=== PATIENT | female | born 1945 | race African-American/Black ===

== ENCOUNTER 2016-04-23 19:22 | Inpatient (IN) ==
[2016-04-23] MEDS ORDERED: 0.9 % Sodium Chloride 1,000 ML IVC ONE (19:30)
--- NOTE | 2016-04-23 19:36 | Emergency Department Note ---
Addendum entered and electronically signed by Chaim Valentin DO 04/23/16 22 :49: Repeat EKG performed for motion artifact and initial EKG. This shows sinus rhythm with arrhythmia at 60. Left axis deviation. No ST elevation or depression. Original Note: Disposition Clinical Impression: Pneumonia Qualifiers: Pneumonia type: due to unspecified organism Laterality: right Lung location: upper lobe of lung Qualified Code(s): J18.1 - Lobar pneumonia, unspecified organism Respiratory failure Qualifiers: Chronicity: acute on chronic Respiratory failure complication: unspecified whether with hypoxia or hypercapnia Qualified Code(s): J96.20 - Acute and chronic respiratory failure, unspecified whether with hypoxia or hypercapnia Disposition: Admitted As Inpatient Condition: Serious Time of Disposition: 21:15 SOB HPI - General Chief Complaint: ED Shortness of Breath/Dyspnea Stated Complaint: hypoxia Time Seen by Provider: 04/23/16 19:30 Source: EMS Mode of arrival: EMS Limitations: altered mental status Nursing Notes Reviewed: Yes Vital Signs Reviewed: Yes - History of Present Illness Hx is extremely limited due to patient's altered mental status and her unexpected presentation by EMS. 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 She became increasingly difficult to bag throughout the trip. She desaturated into the 80s. Per the EMS crew the patient was slumped over and unresponsive when they picked her up which was reportedly her baseline. She has not awakened for them at all. They attempted to suction, but was unable to do so. No further history available. - Related Data Home Medications Medication Instructions Recorded Confirmed Brimonidine Tartrate [Alphagan P] 1 drop RIGHT EYE TID 04/23/16 04/23/16 Buspirone HCl [Buspar] 7.5 mg PO BID 04/23/16 04/23/16 Chlorhexidine Gluconate [Peridex] 15 ml MM BID 04/23/16 04/23/16 Cholecalciferol (D-3) [Vitamin D] 1,000 unit PO DAILY 04/23/16 04/23/16 Docusate [Colace] 100 mg PO DAILY 04/23/16 04/23/16 Donepezil [Aricept] 10 mg PO HS 04/23/16 04/23/16 Enoxaparin [Lovenox] 40 mg SQ DAILY 04/23/16 04/23/16 Famotidine [Heartburn Prevention] 20 mg PO BID 04/23/16 04/23/16 Furosemide [Lasix] 20 mg PO DAILY 04/23/16 04/23/16 Insulin LISPRO [HumaLOG] 2 - 6 units SQ Q6H 04/23/16 04/23/16 LORazepam [Ativan] 1 mg PO Q6H 04/23/16 04/23/16 Lactulose 20 gm PO Q6H PRN 04/23/16 04/23/16 Latanoprost [Xalatan] 1 drop BOTH EYES HS 04/23/16 04/23/16 Levothyroxine [Synthroid] 25 mcg PO 0630 04/23/16 04/23/16 Memantine HCl 10 mg PO BID 04/23/16 04/23/16 Metformin [Glucophage] 500 mg PO QPM 04/23/16 04/23/16 Multivitamin-Min/Iron/FA/Vit K 1 each PO DAILY 04/23/16 04/23/16 [Multi-Day Plus Minerals Tablet] Ondansetron [Zofran] 4 mg IVP Q6H PRN 04/23/16 04/23/16 OxyCODONE Immed Rel [Roxicodone 5 5 mg PO Q8HR PRN 04/23/16 04/23/16 MG] Quetiapine Fumarate [Seroquel] 75 mg PO BID 04/23/16 04/23/16 Sennosides [Senna] 8.6 mg PO DAILY 04/23/16 04/23/16 Allergies Allergy/AdvReac Type Severity Reaction Status Date / Time No Known Allergies Allergy Verified 04/23/16 21:37 Limitations: ROS unobtainable due to patients medical condition (Due to altered mental status) Past Medical History - Past Medical History Source: unable to obtain Physical Exam - Head Head exam: atraumatic, normocephalic, normal inspection - Eye Eye exam: Present: normal appearance, PERRL, EOMI - ENT ENT exam: dry Mucous membranes. - Neck Trach in place. Initially, I was unable to bag through the trach. I removed the inner cannula which was full of solid mucus. I used saline flushes to clean this out and replace it. After this, the patient was easy to bag. - Chest Chest inspection: Present: normal inspection, symmetric chest wall rise - Respiratory Clear bilaterally with diffuse rhonchi. Cardiovascular Cardiovascular exam: Present: regular rate, normal rhythm, normal heart sounds - Abdominal Exam Abdominal exam: Present: soft, Non-Tender. Absent: tenderness, distention, guarding, rebound, rigidity - Extremities Exam Extremities exam: Present: normal inspection, positive distal pulses in all extremities. - Back Exam Back exam: Present: normal inspection, full ROM. Absent: tenderness, CVA tenderness (R), CVA tenderness (L) - Neurological Exam Eyes open. Pupils equal and reactive, patient unresponsive however. - - Skin Skin exam: Present: warm, dry, intact, normal color Course - Reevaluation(s) Reevaluation #1: Patient with right upper lobe infiltrate concerning for ventilator associated pneumonia. Discussed case with Dr. Rodriguez . He is okay with the vancomycin, Levaquin, and Zosyn that was previously ordered for now. He will broaden out antibiotics as needed. He accepts the patient to 2 N. Time: 21:19 Vital Signs Temperature 97.6 F 04/23/16 19:24 Pulse Rate 82 04/23/16 19:24 Respiratory Rate 20 04/23/16 19:24 Blood Pressure 100/65 04/23/16 19:24 O2 Sat by Pulse Oximetry 98 04/23/16 19:24 Temperature 97.4 F L 04/24/16 07:00 Pulse Rate 52 04/24/16 07:00 Respiratory Rate 16 04/24/16 07:00 Blood Pressure 95/58 04/24/16 07:00 O2 Sat by Pulse Oximetry 100 04/24/16 07:00 Oxygen Delivery Oxygen Delivery Ventilator Shortness of Breath/Dyspnea - Lab Data Lab results reviewed: Yes I reviewed the patient's lab results. Result diagrams: 04/24/16 05:20 04/24/16 05:20 Lab Results 04/23/16 04/23/16 04/23/16 Range/Units 19:27 19:56 19:56 WBC 9.0 (4.3-11.1) K/mcL RBC 3.13 L (3.82-4.97) M/mcL Hgb 9.7 L (11.5-15.4) g/dL Hct 33.0 L (35.3-44.9) % MCV 105.4 H (83.0-100.0) fL MCH 31.0 (28.0-33.3) pg MCHC 29.4 L (31.6-35.5) g/dL RDW 14.7 H (11.5-14.5) % Plt Count 304 (140-400) K/mcL MPV 10.3 (9.4-12.4) fL Immature Gran % 0.4 (0-4) % Seg Neutrophils % 77.2 % Lymphocytes % 13.5 % Monocytes % 7.0 % Eosinophils % 1.6 % Basophils % 0.3 % Neutrophils # 7.0 (1.6-8.9) K/mcL Lymphocytes # 1.2 (0.6-4.6) K/mcL Monocytes # 0.6 (0.0-1.3) K/mcL Eosinophils # 0.1 (0.0-0.6) K/mcL Basophils # 0.0 (0.0-0.2) K/mcL PT 11.8 (9.4-12.1) Seconds INR 1.1 APTT 36.1 H (26.0-36.0) Seconds ABG pH (7.32-7.45) pH Units ABG pCO2 (35-45) mmHg ABG pO2 (85-104) mmHg ABG HCO3 (21-27) mEQ/L ABG Total CO2 (20-26) mEq/L ABG O2 Saturation (95-98) % ABG Base Excess (-2.0 to 3.0) mEq/L VBG pH (7.32-7.42) pH Units VBG pCO2 (41-51) mmHg VBG pO2 (25-40) mmHg VBG HCO3 (21-27) mEq/L Respiration Rate Blood Gas Modality Inspired O2 % Tidal Volume cc PEEP cm H2O Sodium (136-145) mEq/L Potassium (3.5-4.5) mEq/L Chloride (98-109) mEq/L Carbon Dioxide (19-29) mEq/L BUN (7-20) mg/dL Creatinine (0.57-1.11) mg/dL Est GFR ( Amer) (> 60) Est GFR (Non-Af Amer) (> 60) BUN/Creatinine Ratio (6-26) Glucose (70-99) mg/dL POC Glucose 233 H (58-89) Calculated Osmolality (280-300) Lactic Acid (0.5-2.2) mmol/L Calcium (8.6-10.8) mg/dL Phosphorus (2.3-4.7) mg/dL Magnesium (1.6-2.6) mg/dL Total Bilirubin (0.2-1.2) mg/dL Direct Bilirubin (0.0-0.5) mg/dL Indirect Bilirubin (0.0-1.2) mg/dL AST (5-34) Units/L ALT (0-55) Units/L Alkaline Phosphatase (38-126) Units/L Troponin I (0-0.03) ng/mL Serum Total Protein (6.0-8.3) g/dL Albumin (3.5-5.0) g/dL Globulin (2.4-3.5) g/dL Albumin/Globulin Ratio (1.1-2.2) Urine Color (Yellow) Urine Clarity (Clear) Urine pH (5.0-8.0) pH Units Ur Specific [place] (1.010-1.025) Urine Protein (Neg-Trace) mg/dL Urine Glucose (UA) (Normal) mg/dL Urine Ketones (Negative) mg/dL Urine Blood (Negative) Urine Nitrite (Negative) Urine Bilirubin (Negative) Urine Urobilinogen (Normal) mg/dL Ur Leukocyte Esterase (Negative) Urine Microscopic RBC (0-3) per hpf Urine Microscopic WBC (0-3) per hpf Ur Squamous Epith Cells (None-Few) per lpf Urine Bacteria (None-Few) per hpf Hyaline Casts (None-Few) per lpf Ur Culture Indicated? (NO) 04/23/16 04/23/16 04/23/16 Range/Units 19:56 19:56 19:56 WBC (4.3-11.1) K/mcL RBC (3.82-4.97) M/mcL Hgb (11.5-15.4) g/dL Hct (35.3-44.9) % MCV (83.0-100.0) fL MCH (28.0-33.3) pg MCHC (31.6-35.5) g/dL RDW (11.5-14.5) % Plt Count (140-400) K/mcL MPV (9.4-12.4) fL Immature Gran % (0-4) % Seg Neutrophils % % Lymphocytes % % Monocytes % % Eosinophils % % Basophils % % Neutrophils # (1.6-8.9) K/mcL Lymphocytes # (0.6-4.6) K/mcL Monocytes # (0.0-1.3) K/mcL Eosinophils # (0.0-0.6) K/mcL Basophils # (0.0-0.2) K/mcL PT (9.4-12.1) Seconds INR APTT (26.0-36.0) Seconds ABG pH (7.32-7.45) pH Units ABG pCO2 (35-45) mmHg ABG pO2 (85-104) mmHg ABG HCO3 (21-27) mEQ/L ABG Total CO2 (20-26) mEq/L ABG O2 Saturation (95-98) % ABG Base Excess (-2.0 to 3.0) mEq/L VBG pH (7.32-7.42) pH Units VBG pCO2 (41-51) mmHg VBG pO2 (25-40) mmHg VBG HCO3 (21-27) mEq/L Respiration Rate Blood Gas Modality Inspired O2 % Tidal Volume cc PEEP cm H2O Sodium 141 (136-145) mEq/L Potassium 5.0 H (3.5-4.5) mEq/L Chloride 97 L (98-109) mEq/L Carbon Dioxide 36 H (19-29) mEq/L BUN 38 H (7-20) mg/dL Creatinine 0.82 (0.57-1.11) mg/dL Est GFR ( Amer) > 60 (> 60) Est GFR (Non-Af Amer) > 60 (> 60) BUN/Creatinine Ratio 46 H (6-26) Glucose 200 H (70-99) mg/dL POC Glucose (58-89) Calculated Osmolality 307 H (280-300) Lactic Acid 1.9 (0.5-2.2) mmol/L Calcium 10.1 (8.6-10.8) mg/dL Phosphorus 5.3 H (2.3-4.7) mg/dL Magnesium 2.0 (1.6-2.6) mg/dL Total Bilirubin 0.3 (0.2-1.2) mg/dL Direct Bilirubin 0.2 (0.0-0.5) mg/dL Indirect Bilirubin 0.1 (0.0-1.2) mg/dL AST 22 (5-34) Units/L ALT 19 (0-55) Units/L Alkaline Phosphatase 96 (38-126) Units/L Troponin I 0.01 (0-0.03) ng/mL Serum Total Protein 7.6 (6.0-8.3) g/dL Albumin 3.1 L (3.5-5.0) g/dL Globulin 4.5 H (2.4-3.5) g/dL Albumin/Globulin Ratio 0.7 L (1.1-2.2) Urine Color (Yellow) Urine Clarity (Clear) Urine pH (5.0-8.0) pH Units Ur Specific [place] (1.010-1.025) Urine Protein (Neg-Trace) mg/dL Urine Glucose (UA) (Normal) mg/dL Urine Ketones (Negative) mg/dL Urine Blood (Negative) Urine Nitrite (Negative) Urine Bilirubin (Negative) Urine Urobilinogen (Normal) mg/dL Ur Leukocyte Esterase (Negative) Urine Microscopic RBC (0-3) per hpf Urine Microscopic WBC (0-3) per hpf Ur Squamous Epith Cells (None-Few) per lpf Urine Bacteria (None-Few) per hpf Hyaline Casts (None-Few) per lpf Ur Culture Indicated? (NO) 04/23/16 04/23/16 04/24/16 Range/Units 19:56 20:32 01:40 WBC (4.3-11.1) K/mcL RBC (3.82-4.97) M/mcL Hgb (11.5-15.4) g/dL Hct (35.3-44.9) % MCV (83.0-100.0) fL MCH (28.0-33.3) pg MCHC (31.6-35.5) g/dL RDW (11.5-14.5) % Plt Count (140-400) K/mcL MPV (9.4-12.4) fL Immature Gran % (0-4) % Seg Neutrophils % % Lymphocytes % % Monocytes % % Eosinophils % % Basophils % % Neutrophils # (1.6-8.9) K/mcL Lymphocytes # (0.6-4.6) K/mcL Monocytes # (0.0-1.3) K/mcL Eosinophils # (0.0-0.6) K/mcL Basophils # (0.0-0.2) K/mcL PT (9.4-12.1) Seconds INR APTT (26.0-36.0) Seconds ABG pH 7.54 H (7.32-7.45) pH Units ABG pCO2 44 (35-45) mmHg ABG pO2 75 L (85-104) mmHg ABG HCO3 37.6 H (21-27) mEQ/L ABG Total CO2 39.0 H (20-26) mEq/L ABG O2 Saturation 96 (95-98) % ABG Base Excess 13.7 H (-2.0 to 3.0) mEq/L VBG pH 7.29 L (7.32-7.42) pH Units VBG pCO2 96 H (41-51) mmHg VBG pO2 38 (25-40) mmHg VBG HCO3 46.2 H (21-27) mEq/L Respiration Rate 12 Blood Gas Modality ASSIST CONTROL Inspired O2 30 % Tidal Volume 400 cc PEEP 5 cm H2O Sodium (136-145) mEq/L Potassium (3.5-4.5) mEq/L Chloride (98-109) mEq/L Carbon Dioxide (19-29) mEq/L BUN (7-20) mg/dL Creatinine (0.57-1.11) mg/dL Est GFR ( Amer) (> 60) Est GFR (Non-Af Amer) (> 60) BUN/Creatinine Ratio (6-26) Glucose (70-99) mg/dL POC Glucose (58-89) Calculated Osmolality (280-300) Lactic Acid (0.5-2.2) mmol/L Calcium (8.6-10.8) mg/dL Phosphorus (2.3-4.7) mg/dL Magnesium (1.6-2.6) mg/dL Total Bilirubin (0.2-1.2) mg/dL Direct Bilirubin (0.0-0.5) mg/dL Indirect Bilirubin (0.0-1.2) mg/dL AST (5-34) Units/L ALT (0-55) Units/L Alkaline Phosphatase (38-126) Units/L Troponin I (0-0.03) ng/mL Serum Total Protein (6.0-8.3) g/dL Albumin (3.5-5.0) g/dL Globulin (2.4-3.5) g/dL Albumin/Globulin Ratio (1.1-2.2) Urine Color Yellow (Yellow) Urine Clarity Turbid A (Clear) Urine pH 6.5 (5.0-8.0) pH Units Ur Specific [place] 1.018 (1.010-1.025) Urine Protein 100 H (Neg-Trace) mg/dL Urine Glucose (UA) Normal (Normal) mg/dL Urine Ketones Negative (Negative) mg/dL Urine Blood Trace H (Negative) Urine Nitrite Negative (Negative) Urine Bilirubin Negative (Negative) Urine Urobilinogen Normal (Normal) mg/dL Ur Leukocyte Esterase Large H (Negative) Urine Microscopic RBC 5-15 H (0-3) per hpf Urine Microscopic WBC TNTC H (0-3) per hpf Ur Squamous Epith Cells Many H (None-Few) per lpf Urine Bacteria Many H (None-Few) per hpf Hyaline Casts None Seen (None-Few) per lpf Ur Culture Indicated? YES A (NO) - Radiology Data Radiology results reviewed: Yes I reviewed the patient's radiology results. - EKG Data EKG attestation: Yes I reviewed and interpreted this EKG. EKG results narrative: Normal sinus rhythm at 86 with normal axis and no gross ST elevation or depression. Limited by motion artifact. No pathologic Q waves. No old EKG available. Critical Care Time Critical Care Time: Yes Total Critical Care Time: 61 Attestation: The high probability of a clinically significant, sudden or life threatening deterioration of the respiratory and cardiac system(s) required my full and direct attention, intervention and personal management. The aggregate critical care time was 61 minutes. This time is in addition to time spent performing reported procedures but includes the following: x Data Review and interpretation x Patient assessment and monitoring of vital signs x Documentation x Medication orders and management Attestation Statement - Attestation Attestation: For this encounter, I have reviewed the resident, GERMAN PROFESSOR, or PA documentation, treatment plan, and medical decision making; and I have had face to face time with this patient. 71-year-old female brought in by EMS with respiratory distress. Was being transferred from [facility] to another [facility] facility when she acutely became hypoxic. Upon initial evaluation the patient was found to have a mucous plug in her tracheostomy site was cleaned and replaced with significant improvement in ventilation. Patient however continued to remain hypoxic with a systolic BP in the 80s and 90s. Patient's BP improved after administration of IV fluids. Upon evaluation of the patient' s previous medical records the patient had a BP of 129 systolic prior to discharge within the past few hours. Patient will be admitted to the hospital for further care and evaluation of possible aspiration and pneumonia. Patient started on antibiotics in the emergency department.
[2016-04-23 20:04] LABS: VBG HCO3 46.2 mEq/L (21-27); VBG PH 7.29 pH Units (7.32-7.42)
[2016-04-23 20:05] LABS: Basophils % 0.3 %; Eosinophils # 0.1 K/mcL (0.0-0.6); Eosinophils % 1.6 %; Hemoglobin 9.7 g/dL (11.5-15.4); Immature Granulocytes % 0.4 % (0-4); Lymphocytes # 1.2 K/mcL (0.6-4.6); Lymphocytes % 13.5 %; Mean Corpuscular HGB Conc 29.4 g/dL (31.6-35.5); Mean Corpuscular Volume 105.4 fL (83.0-100.0); Mean Platelet Volume 10.3 fL (9.4-12.4); Monocytes # 0.6 K/mcL (0.0-1.3); Platelet Count 304 K/mcL (140-400); Red Blood Count 3.13 M/mcL (3.82-4.97); Red Cell Distribution Width 14.7 % (11.5-14.5); Segmented Neutrophils % 77.2 %
[2016-04-23 20:10] LABS: INR 1.1; Prothrombin Time 11.8 Seconds (9.4-12.1)
[2016-04-23 20:12] LABS: Activated Partial Thrombo Time 36.1 Seconds (26.0-36.0)
[2016-04-23 20:18] LABS: Alanine Aminotransferase 19 Units/L (0-55); Albumin 3.1 g/dL (3.5-5.0); Albumin/Globulin Ratio 0.7 (1.1-2.2); Alkaline Phosphatase 96 Units/L (38-126); Aspartate Amino Transferase 22 Units/L (5-34); BUN/Creatinine Ratio 46 (6-26); Bilirubin,Direct 0.2 mg/dL (0.0-0.5); Bilirubin,Indirect 0.1 mg/dL (0.0-1.2); Bilirubin,Total 0.3 mg/dL (0.2-1.2); Blood Urea Nitrogen 38 mg/dL (7-20); Calcium 10.1 mg/dL (8.6-10.8); Carbon Dioxide 36 mEq/L (19-29); Chloride 97 mEq/L (98-109); Globulin 4.5 g/dL (2.4-3.5); Glucose 200 mg/dL (70-99); Osmolality,Calculated 307 (280-300); Phosphorous 5.3 mg/dL (2.3-4.7); Sodium 141 mEq/L (136-145); Total Protein 7.6 g/dL (6.0-8.3); eGFR For African Americans > 60 (> 60); eGFR For Non-African Americans > 60 (> 60)
[2016-04-23 20:44] LABS: Bilirubin,Urine Negative (Negative); Blood,Urine Trace (Negative); Clarity,Urine Turbid (Clear); Color,Urine Yellow (Yellow); Glucose,Urine (UA) Normal (Normal); Ketones,Urine Negative (Negative); Leukocyte Esterase,Urine Large (Negative); Nitrite,Urine Negative (Negative); PH,Urine 6.5 pH Units (5.0-8.0); Protein,Urine 100 mg/dL (Neg-Trace); Specific Gravity,Urine 1.018 (1.010-1.025); Urobilinogen,Urine Normal (Normal)
[2016-04-23 20:45] LABS: Bacteria,Urine Many per hpf (None-Few); Hyaline Casts,Urine None Seen per lpf (None-Few); Squamous Epithelial Cell,Urine Many per lpf (None-Few); WBC,Urine TNTC per hpf (0-3)
[2016-04-23] MEDS ORDERED: Levofloxacin 750 MG/150 ML 750 MG/150 ML BAG IVPB ONE (20:54)
[2016-04-23] MEDS ORDERED: Piperacillin/Tazobactam 3.375 GM in D5% in Water (Mini-Bag+) 100 ML IVPB ONE (20:54)
[2016-04-23] MEDS ORDERED: Vancomycin (wt based) 1,000 MG VIAL IV STA (20:54)
[2016-04-23] MEDS ORDERED: Vancomycin 1,000 MG in D5% in Water 250 ML IVPB ONE (21:00)
[2016-04-23] MEDS ORDERED: 0.9 % Sodium Chloride 1,000 ML IV ONE (21:19)
[2016-04-24] MEDS ORDERED: Albuterol 2.5 MG/3 ML NEBULIZER IH PRN (00:24)
[2016-04-24] MEDS ORDERED: *HR* LORazepam 2 MG/ML VIAL ONE (00:27)
[2016-04-24] MEDS: *HR* LORazepam 2 MG/ML VIAL IVP PRN ×3 (00:30→22:02)
[2016-04-24] MEDS ORDERED: *HR* Morphine 2 MG/ML SYRINGE IVP ONE (00:55)
[2016-04-24] MEDS ORDERED: *HR* Morphine 2 MG/ML SYRINGE ONE (00:57)
[2016-04-24] MEDS ORDERED: Dexmedetomidine HCl 400 MCG/100 ML MLS IVC ONE (01:29)
[2016-04-24] MEDS: Dexmedetomidine HCl 400 MCG/100 ML MLS IVC SCH ×2 (01:37→21:15)
[2016-04-24 01:52] LABS: ABG Base Excess 13.7 mEq/L (-2.0 to 3.0); ABG HCO3 37.6 mEQ/L (21-27); ABG Oxygen Saturation 96 % (95-98); ABG PCO2 44 mmHg (35-45); ABG PH 7.54 pH Units (7.32-7.45); ABG PO2 75 mmHg (85-104); Blood Gas FiO2 30 %; Blood Gas PEEP 5 cm H2O; Blood Gas Respiration Rate 12; Blood Gas VT 400 cc
[2016-04-24] MEDS ORDERED: Ondansetron 4 MG/2 ML VIAL IVP PRN (04:00)
[2016-04-24] MEDS ORDERED: 0.9 % Sodium Chloride 1,000 ML IVC SCH (04:00)
[2016-04-24] MEDS ORDERED: Naloxone 0.4 MG/ML INJ IVP PRN (04:00)
--- NOTE | 2016-04-24 04:25 | Internal Med History&Physical ---
Date of Encounter: 04/24/16 Time of Encounter: 01:30 Assessment and Plan (1) Ventilator associated pneumonia Current visit: Yes Status: Acute 1. Blood, sputum, and urine cultures to be collected. 2. Continue IV antibiotics with focus toward Pseudomonas. 3. Consult Pulmonology for assistance with vent management. 4. Sedation with Precedex. 5. Aerosols PRN. 6. Check for influenza. (2) Chronic respiratory failure Current visit: Yes Status: Chronic 1. Pt is ventilator dependent. 2. Adjust vent settings as needed. 3. Pulmonology consult. 4. Wean oxygen to lowest tolerable level. Qualifiers: Respiratory failure complication: hypoxia and hypercapnia Qualified Code(s) : J96.11 - Chronic respiratory failure with hypoxia; J96.12 - Chronic respiratory failure with hypercapnia (3) Dementia Current visit: Yes Status: Chronic 1. Continue home meds as appropriate. Qualifiers: Dementia type: unspecified type Dementia behavioral disturbance: without behavioral disturbance Qualified Code(s): F03.90 - Unspecified dementia without behavioral disturbance (4) UTI (urinary tract infection) Current visit: Yes Status: Acute 1. Culture urine. 2. Continue antibiotics and de-escalate as able per culture results. Qualifiers: Urinary tract infection type: acute cystitis Hematuria presence: without hematuria Qualified Code(s): N30.00 - Acute cystitis without hematuria (5) DVT prophylaxis Current visit: Yes Status: Acute 1. Heparin SQ. Internal Medicine - H&P: HPI Chief complaint: SOB Admitted From: Emergency Dept Plans for Post Hospital Care: Transfer Surgical Supply Assistant Care History of present illness: Ms. Squires is a 71 year old female who presented to the ER thuy dutta for concerns of difficulty breathing and inability to ventilate her on her chronic home ventilator and/or by bag mask ventilation. She was just discharged from [facility] and was en route to her extended care facility when her transport vehicle and staff were unable to ventilate her. They disconnected her from the ventilator and tried to bag mask ventilate her via her tracheostomy. They are unable to do so and she had significant respiratory distress, shortness of breath, and hypoxemia. Therefore, the ambulance stopped here at [place] in the ER patient and she was evaluated by ER staff. ER staff removed her tracheostomy and noticed significant mucus plugging from her trach site. The trach was replaced and she was easily ventilated at that point. Workup in ER revealed patient had a new right upper lobe pneumonia. I was contacted by ER staff to admit her. Given that she was just discharged from [facility] several hours ago, I requested the ER staff contact [facility] to transfer her back to their facility to resume care and for treatment of her pneumonia and chronic vent needs. ER staff contacted [facility], and per my discussions with ER staff, they refused to accept patient in transfer back to the hospital and recommended patient be admitted here for ongoing care. Patient was therefore admitted to the hospitalist group. Upon my assessment of the patient, she was quite anxious and working against the ventilator. She was pulling her lines and her tracheostomy tube. She was generating high peak airway pressures on ventilator which prompted me to try some Ativan and/or morphine to help calm her down and control her chest pain. She was also having some chest tightness and chest pain. Despite this maneuver , she continued to breathe harder and cough at times and generated high peak airway pressures. I ordered a stat chest x-ray and there was no change and there was persistent right upper lobe infiltrate. Based upon the inability to ventilat her properly, concern of losing her airway, and ongoing ventilatory need, I initiated sedation with Precedex. Patient is now sedated and ventilating well with the ventilator. Unfortunately, I could get no history from patient other than the one complaint of chest pain she noted. I obtained most of the information from the ER staff and limited available records [facility] Past Med Surg Social Fam HX - Past Medical History Source: old records reviewed, other (discussions with ER staff) Medical history: cardiomyopathy, CHF, COPD, diabetes, GERD, glaucoma, hypertension, thyroid disease Psychiatric history: depression - Past Surgical History Surgical History: other (tracheostomy) - Social History Smoking Status: Unknown if ever smoked Alcohol use: unknown Drug use: unknown Current living situation: ECF - Family History Father Hx Family Cardiac Disorders: Yes Mother History Unknown: Yes Internal Medicine - H&P: Meds Brimonidine Tartrate [Alphagan P] 1 drop RIGHT EYE TID 04/23/16 [History] Buspirone HCl [Buspar] 7.5 mg PO BID 04/23/16 [History] Chlorhexidine Gluconate [Peridex] 15 ml MM BID 04/23/16 [History] Cholecalciferol (D-3) [Vitamin D] 1,000 unit PO DAILY 04/23/16 [History] Docusate [Colace] 100 mg PO DAILY 04/23/16 [History] Donepezil [Aricept] 10 mg PO HS 04/23/16 [History] Enoxaparin [Lovenox] 40 mg SQ DAILY 04/23/16 [History] Famotidine [Heartburn Prevention] 20 mg PO BID 04/23/16 [History] Furosemide [Lasix] 20 mg PO DAILY 04/23/16 [History] Insulin LISPRO [HumaLOG] 2 - 6 units SQ Q6H 04/23/16 [History] LORazepam [Ativan] 1 mg PO Q6H 04/23/16 [History] Lactulose 20 gm PO Q6H PRN 04/23/16 [History] Latanoprost [Xalatan] 1 drop BOTH EYES HS 04/23/16 [History] Levothyroxine [Synthroid] 25 mcg PO 0630 04/23/16 [History] Memantine HCl 10 mg PO BID 04/23/16 [History] Metformin [Glucophage] 500 mg PO QPM 04/23/16 [History] Multivitamin-Min/Iron/FA/Vit K [Multi-Day Plus Minerals Tablet] 1 each PO DAILY 04/23/16 [History] Ondansetron [Zofran] 4 mg IVP Q6H PRN 04/23/16 [History] OxyCODONE Immed Rel [Roxicodone 5 MG] 5 mg PO Q8HR PRN 04/23/16 [History] Quetiapine Fumarate [Seroquel] 75 mg PO BID 04/23/16 [History] Sennosides [Senna] 8.6 mg PO DAILY 04/23/16 [History] Allergies No Known Allergies Allergy (Verified 04/23/16 21:37) ROS unobtainable: due to endotracheal tube, due to mental status (patient with dementia) - Constitutional Vitals: Temp Pulse Resp BP Pulse Ox 97.7 F 58 16 86/61 100 04/24/16 03:00 04/24/16 03:00 04/24/16 03:00 04/24/16 03:00 04/24/16 03:00 General appearance: Present: cachectic, A&O X 0, mild distress (pulling at lines , fighting the ventilator). Absent: cooperative - Head Head exam: Present: atraumatic, normal inspection - Eye Eye exam: Present: EOMI, normal appearance, PERRL. Absent: scleral icterus Pupils: Present: normal accommodation - ENT ENT exam: Present: mucous membranes dry Additional comments: tracheostomy in place - Neck Neck exam general surgery: Present: supple. Absent: tenderness, thyromegaly - Respiratory Respiratory exam: Present: rales, respiratory distress, rhonchi, tachypnea. Absent: chest wall tenderness, wheezes - Cardiovascular Cardiovascular exam: Present: RRR, +S1, +S2, systolic murmur (grade 1- 2 ). Absent: diastolic murmur, JVD - GI/Abdominal GI/Abdominal exam: Present: normal bowel sounds, soft. Absent: hepatomegaly, mass, splenomegaly - Extremities Exam Extremities exam: Present: full ROM, warm. Absent: calf tenderness, joint swelling - Back Exam Back exam: Absent: CVA tenderness (L), CVA tenderness (R) - Neurological Exam Neurological exam: Present: altered, no focal deficits Additional comments: unable to fully assess due to combativeness and confusion - Psychiatric Psychiatric exam: Present: agitated - Skin Skin exam: Present: dry, warm. Absent: petechiae Internal Med - H&P Results - Labs CBC & Chem 7: 04/23/16 19:56 04/23/16 19:56 - ABG Interpretation ABG results: 04/24/16 01:40 ABG pH 7.54 H ABG pCO2 44 ABG pO2 75 L ABG HCO3 37.6 H ABG Total CO2 39.0 H ABG O2 Saturation 96 ABG Base Excess 13.7 H - EKG Data -: EKG Interpreted by Myself EKG shows normal: sinus rhythm - EKG Data Prior EKG available for review: no EKG comments: 04/24/16 04:33 Sinus rhythm - Impressions ITS Impressions Chest X-Ray 04/24/16 00:22 IMPRESSION: 1. Stable right upper lobe opacity suspicious for pneumonia. 2. Retrocardiac density suggestive of hiatal hernia. D/ / Abdi Hartley MD / Abdi Hartley MD Interpreting Provider: Abdi Hartley MD - Diagnostic Studies Chest x-ray Status: image reviewed by me (RUL infiltrate)
[2016-04-24] MEDS ORDERED: Vancomycin 500 MG in D5% in Water 250 ML IVPB SCH (05:00)
[2016-04-24 05:44] LABS: Basophils % 0.2 %; Eosinophils % 0.3 %; Hematocrit 27.5 % (35.3-44.9); Hemoglobin 8.3 g/dL (11.5-15.4); Immature Granulocytes % 0.6 % (0-4); Lymphocytes # 1.2 K/mcL (0.6-4.6); Lymphocytes % 9.8 %; Mean Corpuscular HGB Conc 30.2 g/dL (31.6-35.5); Mean Corpuscular Volume 102.6 fL (83.0-100.0); Mean Platelet Volume 10.9 fL (9.4-12.4); Monocytes # 1.1 K/mcL (0.0-1.3); Monocytes % 9.1 %; Neutrophils # 9.4 K/mcL (1.6-8.9); Platelet Count 278 K/mcL (140-400); Red Blood Count 2.68 M/mcL (3.82-4.97); Red Cell Distribution Width 14.9 % (11.5-14.5)
[2016-04-24 05:56] LABS: Alanine Aminotransferase 16 Units/L (0-55); Albumin 2.6 g/dL (3.5-5.0); Albumin/Globulin Ratio 0.7 (1.1-2.2); Alkaline Phosphatase 79 Units/L (38-126); Aspartate Amino Transferase 23 Units/L (5-34); BUN/Creatinine Ratio 45 (6-26); Bilirubin,Total 0.6 mg/dL (0.2-1.2); Blood Urea Nitrogen 29 mg/dL (7-20); Calcium 9.5 mg/dL (8.6-10.8); Carbon Dioxide 31 mEq/L (19-29); Chloride 101 mEq/L (98-109); Globulin 3.9 g/dL (2.4-3.5); Glucose 88 mg/dL (70-99); Magnesium 1.7 mg/dL (1.6-2.6); Osmolality,Calculated 295 (280-300); Sodium 140 mEq/L (136-145); Total Protein 6.5 g/dL (6.0-8.3); eGFR For African Americans > 60 (> 60); eGFR For Non-African Americans > 60 (> 60)
[2016-04-24 06:01] LABS: Potassium 3.9 mEq/L (3.5-4.5)
[2016-04-24] MEDS: Levothyroxine 25 MCG TABLET PO SCH (06:02)
[2016-04-24] MEDS: *HR* Heparin 5,000 UNIT/ML VIAL SQ SCH ×2 (06:02→15:38)
[2016-04-24 06:03] LABS: Platelet Estimate Normal (Normal)
[2016-04-24 06:20] LABS: ABG Base Excess 13.8 mEq/L (-2.0 to 3.0); ABG HCO3 39.8 mEQ/L (21-27); ABG Oxygen Saturation 97 % (95-98); ABG PCO2 60 mmHg (35-45); ABG PH 7.43 pH Units (7.32-7.45); ABG PO2 87 mmHg (85-104); ABG TCO2 41.6 mEq/L (20-26)
[2016-04-24 06:21] LABS: Blood Gas FiO2 30 %; Blood Gas PEEP 5 cm H2O; Blood Gas Respiration Rate 10; Blood Gas VT 300 cc
[2016-04-24 06:23] LABS: 2009 H1N1 PCR NOT DETECTED (Not Detect); Influenza A PCR Negative (Negative); Influenza B PCR Negative (Negative)
[2016-04-24] MEDS: Piperacillin/Tazobactam 3.375 GM in D5% in Water (Mini-Bag+) 100 ML IVPB SCH ×3 (08:09→23:52)
--- NOTE | 2016-04-24 08:09 | Internal Med Progress Note ---
Date of Encounter: 04/24/16 Time of Encounter: 07:53 - Assessment and plan (1) Respiratory failure Current Visit: Yes Status: Acute Assessment and plan: Patient with vent dependence Chronic retainer as evidenced by metabolic alkalosis PCO2 has improved Continue Vent support Begin to taper off precedex with aim to discontinue Patient may be placed on ativan prn for agitation She is full code Qualifiers: Chronicity: acute on chronic Respiratory failure complication: hypercapnia Qualified Code(s): J96.22 - Acute and chronic respiratory failure with hypercapnia (2) Ventilator associated pneumonia Current Visit: Yes Status: Suspected Assessment and plan: Suspected Patient has received treatment at referral facility It is unlikely that this is a new pneumonia Patient is afebrile and had no leukocytosis prior to admission She has been Levoflox, Zosyn and Vanco She is having very minimal O2 requirements on the Vent Will await cultures, and de-escalate if preliminary cultures are negative (3) Hypothyroidism Current Visit: Yes Status: Chronic Assessment and plan: Continue levothyroxine Qualifiers: Hypothyroidism type: unspecified Qualified Code(s): E03.9 - Hypothyroidism , unspecified (4) Diabetes Current Visit: Yes Status: Chronic Assessment and plan: FS are currently acceptable Continue to monitor Qualifiers: Diabetes mellitus type: type 2 Diabetes mellitus complication status: with unspecified complications 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 Qualified Code(s): E11.8 - Type 2 diabetes mellitus with unspecified complications (5) Restrictive lung disease due to kyphoscoliosis Current Visit: Yes Status: Chronic Assessment and plan: Chronic, stable Continue Vent support (6) Pulmonary hypertension Current Visit: Yes Status: Chronic (7) UTI (urinary tract infection) Current Visit: Yes Status: Suspected Assessment and plan: Suspected Continue antibiotics Follow urine culture Qualifiers: Urinary tract infection type: acute cystitis Hematuria presence: without hematuria Qualified Code(s): N30.00 - Acute cystitis without hematuria (8) Chronic respiratory failure Current Visit: Yes Status: Chronic Qualifiers: Respiratory failure complication: hypoxia and hypercapnia Qualified Code(s) : J96.11 - Chronic respiratory failure with hypoxia; J96.12 - Chronic respiratory failure with hypercapnia (9) Dementia Current Visit: Yes Status: Chronic Assessment and plan: Resume home meds Qualifiers: Dementia type: unspecified type Dementia behavioral disturbance: without behavioral disturbance Qualified Code(s): F03.90 - Unspecified dementia without behavioral disturbance (10) Malnutrition of moderate degree Current Visit: Yes Status: Chronic Assessment and plan: Nutrition consult noted Resume tube feeds - Subjective Interval history: Initial encounter 71-year-old female with chronic respiratory failure with ventilatory dependent, developmental delay, type 2 diabetes, hypothyroidism, depression, hypertension, kyphoscoliosis with significant pulmonary restriction, severe pulmonary hypertension and anxiety. Patient was recently discharged from [facility] on 04/23/2016 after management for sepsis with septic shock, altered mental status, pneumonia , acute on chronic respiratory failure. Hospital stay was complicated by ventilator dependence . She is status post tracheostomy and PEG tube placement. she had received Zosyn from 9 days during that hospitalization for pneumonia Patient is en route from discharge facility to extended care facility when she developed acute on chronic respiratory failure with difficulty ventilating the patient. In the ER here, her tracheostomy tube was found with mucus plug and was cleaned and replaced. She was placed back on the ventilator. However,patient became agitated and restless requiring sedation with Precedex. Workup. Anemia, chronic and at baseline compared to discharge number from previous facility, leukocytosis with left shift, acute respiratory acidosis pH 7.29, PCO2 96, metabolic alkalosis with CO2 of 36, hyperkalemia, CXR with right upper lobe pneumonia. Physical exam vital signs bradycardic HR 49-56, blood pressure acceptable for age and weight systolic 91 diastolic 62, O2Sat 100% on ventilatory settings respiratory rate 10 , FiO2 50%, TV 300, PEEP of 5. Patient is an inpatient. She is deeply sedated, trach tube in place clean and dressings are clean, she has kyphoscoliosis with barrel shaped chest, she has equal chest movement bilaterally, good air entry is equal bilaterally, heart sounds S1 and S2 with no murmurs gallops or rubs. Abdomen is scaphoid, non-tender, moves with respiration gastrostomy tube in place, no pedal edema of lower extremities - Constitutional Vitals: Temp Pulse Resp BP Pulse Ox 97.4 F L 48 16 95/58 100 04/24/16 07:00 04/24/16 07:38 04/24/16 07:00 04/24/16 07:00 04/24/16 07:00 General appearance: Present: cachectic, A&O X 0, mild distress (pulling at lines , fighting the ventilator). Absent: cooperative Internal Medicine: Result - Labs CBC & Chem 7: 04/24/16 05:20 04/24/16 05:20 Labs: Short CBC 04/24/16 Range/Units 05:20 WBC 11.7 H (4.3-11.1) K/mcL Hgb 8.3 L (11.5-15.4) g/dL Hct 27.5 L (35.3-44.9) % Plt Count 278 (140-400) K/mcL Neutrophils # 9.4 H (1.6-8.9) K/mcL BMP 04/24/16 05:20 Sodium 140 Potassium 3.9 D Chloride 101 Carbon Dioxide 31 H BUN 29 H Creatinine 0.65 Glucose 88 Calcium 9.5 Cardiac Enzymes 04/24/16 Range/Units 05:20 Troponin I 0.02 (0-0.03) ng/mL Liver Function 04/24/16 Range/Units 05:20 Total Bilirubin 0.6 (0.2-1.2) mg/dL AST 23 (5-34) Units/L ALT 16 (0-55) Units/L Alkaline Phosphatase 79 (38-126) Units/L Albumin 2.6 L (3.5-5.0) g/dL - ABG Interpretation ABG results: ABG ABG pH 7.43 pH Units (7.32-7.45) 04/24/16 06:16 ABG pCO2 60 mmHg (35-45) H 04/24/16 06:16 ABG pO2 87 mmHg (85-104) 04/24/16 06:16 ABG O2 Saturation 97 % (95-98) 04/24/16 06:16 PT/INR, D-dimer PT 11.8 Seconds (9.4-12.1) 04/23/16 19:56 Consult Discharge Plan - Plan Referrals: NO,PCP [Primary Care Provider] -
[2016-04-24] MEDS: Docusate Oral Soln 100 MG/10 ML UDC GTUBE SCH (08:12)
[2016-04-24] MEDS: Famotidine 20 MG TABLET GTUBE SCH ×2 (08:13→15:38)
[2016-04-24] MEDS: Chlorhexidine Rinse 15 ML MOUTHWASH MM SCH ×2 (08:18→22:06)
--- NOTE | 2016-04-24 11:08 | Pulmonology Consult Note ---
Date of Encounter: 04/24/16 Time of Encounter: 11:06 Assessment and Plan (1) Chronic respiratory failure with hypoxia and hypercapnia Current Visit: Yes Status: Acute Neck respiratory failure with hypoxia hypercapnia due to severe chest lisa dysfunction secondary to severe kyphoscoliosis. He has required tracheostomy and presumably is ventilator dependent. The patient's admission to the hospital was prompted by dysfunction of the tracheostomy device placed and is currently working appropriately. I see no evidence to highly support a diagnosis of pneumonia and I am stopping antibiotics at this time. Her graft if the patient's clinical status stabilizes over the weekend, then I think she can be transported to the anticipated long-term ventilator facility. Code(s): J96.11 - Chronic respiratory failure with hypoxia; J96.12 - Chronic respiratory failure with hypercapnia SNOMED Code(s): 58058700, 159268540 History of Present Illness Consult date: 04/24/16 Chief complaint: Chronic respiratory failure with hypoxia hypercapnia, tracheostomy status History of present illness: 6 is a 71-year-old female who apparently was in transit from [facility] to a long-term ventilator facility in [facility] when she developed respiratory difficulties. Portably, transport service experienced difficulty ventilating and Ambu bag and the patient. She presented to the emergency room and apparently the tracheostomy device was completely obstructed by secretions intensive was replaced, the patient's respiratory status stabilized but she was admitted to the hospital for additional evaluation. Seems to be evident from physical examination and radiographic evaluation, this patient has severe kyphoscoliosis right heart failure hypercapnic respiratory failure as a result of the same and presumably not liberated from ventilatory support at [facility] she is ventilator dependent. Limited information is otherwise available in reference to her medical problems. Past Med Surg Social Fam HX - Past Medical History Medical history: cardiomyopathy, CHF, COPD, diabetes, GERD, glaucoma, hypertension, thyroid disease Psychiatric history: depression - Past Surgical History Surgical History: other (tracheostomy) - Social History Smoking Status: Unknown if ever smoked Alcohol use: unknown Drug use: unknown - Family History Father Hx Family Cardiac Disorders: Yes Mother History Unknown: Yes Medications and Allergies Brimonidine Tartrate [Alphagan P] 1 drop RIGHT EYE TID 04/23/16 [History] Buspirone HCl [Buspar] 7.5 mg PO BID 04/23/16 [History] Chlorhexidine Gluconate [Peridex] 15 ml MM BID 04/23/16 [History] Cholecalciferol (D-3) [Vitamin D] 1,000 unit PO DAILY 04/23/16 [History] Docusate [Colace] 100 mg PO DAILY 04/23/16 [History] Donepezil [Aricept] 10 mg PO HS 04/23/16 [History] Enoxaparin [Lovenox] 40 mg SQ DAILY 04/23/16 [History] Famotidine [Heartburn Prevention] 20 mg PO BID 04/23/16 [History] Furosemide [Lasix] 20 mg PO DAILY 04/23/16 [History] Insulin LISPRO [HumaLOG] 2 - 6 units SQ Q6H 04/23/16 [History] LORazepam [Ativan] 1 mg PO Q6H 04/23/16 [History] Lactulose 20 gm PO Q6H PRN 04/23/16 [History] Latanoprost [Xalatan] 1 drop BOTH EYES HS 04/23/16 [History] Levothyroxine [Synthroid] 25 mcg PO 0630 04/23/16 [History] Memantine HCl 10 mg PO BID 04/23/16 [History] Metformin [Glucophage] 500 mg PO QPM 04/23/16 [History] Multivitamin-Min/Iron/FA/Vit K [Multi-Day Plus Minerals Tablet] 1 each PO DAILY 04/23/16 [History] Ondansetron [Zofran] 4 mg IVP Q6H PRN 04/23/16 [History] OxyCODONE Immed Rel [Roxicodone 5 MG] 5 mg PO Q8HR PRN 04/23/16 [History] Quetiapine Fumarate [Seroquel] 75 mg PO BID 04/23/16 [History] Sennosides [Senna] 8.6 mg PO DAILY 04/23/16 [History] Allergies No Known Allergies Allergy (Verified 04/23/16 21:37) ROS unobtainable: other (Able to obtain a review of systems given ventilator status and tracheostomy device) All Systems: A 10-system review of systems was performed and is negative for pertinent findings except as documented above in the HPI. Physical Examination Vital Signs: Vital Signs, Last 4 Hours Temp Pulse Resp BP Pulse Ox 04/24/16 08:30 97.4 F L 48 11 97 04/24/16 08:06 11 97 04/24/16 07:38 48 General appearance: no acute distress, other (Elderly frail female awake and alert in no distress) ENT: oropharynx moist Neck: other (Tracheostomy device in place suctioning of airway notable for mucoid secretions) Inspection: scoliosis, kyphosis Auscultation: bilateral: diminished breath sounds (Severely diminished breath sounds throughout all gracia Beer deformity of chest and thoracic cage) Cardiovascular: other (Loud P2) Gastrointestinal: normoactive bowel sounds, non-distended Extremities: no cyanosis, edema (Trace lower extremity edema noted) other (Limited neurologic exam but seemingly movement and equal strength of upper lower extremities.) Ventilator Settings Ventilator Settings: Ventilator Settings, Last 8 Hours Ventilator Mode A/C Ventilator Mode A/C Ventilator Mode A/C Ventilator Mode A/C Ventilator Tidal Volume 300 Setting Ventilator Tidal Volume 300 Setting Ventilator Tidal Volume 300 Setting Ventilator Tidal Volume 300 Setting Ventilator Respiratory Rate 10 Setting Ventilator Respiratory Rate 10 Setting Ventilator Respiratory Rate 10 Setting Ventilator Respiratory Rate 10 Setting Actual Respiratory Rate 11 Actual Respiratory Rate 11 Actual Respiratory Rate 11 Positive End Expiratory 5 Pressure Positive End Expiratory 5 Pressure Positive End Expiratory 5 Pressure Positive End Expiratory 5 Pressure Peak Inspiratory Airway 23 Pressure Peak Inspiratory Airway 23 Pressure Peak Inspiratory Airway 22 Pressure Results - Laboratory Findings CBC and BMP: 04/24/16 05:20 04/24/16 05:20 ABG ABG pH 7.43 pH Units (7.32-7.45) 04/24/16 06:16 ABG pCO2 60 mmHg (35-45) H 04/24/16 06:16 ABG pO2 87 mmHg (85-104) 04/24/16 06:16 ABG O2 Saturation 97 % (95-98) 04/24/16 06:16 PT/INR, D-dimer PT 11.8 Seconds (9.4-12.1) 04/23/16 19:56 Abnormal lab findings: Abnormal lab results WBC 11.7 K/mcL (4.3-11.1) H 04/24/16 05:20 RBC 2.68 M/mcL (3.82-4.97) L 04/24/16 05:20 Hgb 8.3 g/dL (11.5-15.4) L 04/24/16 05:20 Hct 27.5 % (35.3-44.9) L 04/24/16 05:20 MCV 102.6 fL (83.0-100.0) H 04/24/16 05:20 MCHC 30.2 g/dL (31.6-35.5) L 04/24/16 05:20 RDW 14.9 % (11.5-14.5) H 04/24/16 05:20 Neutrophils # 9.4 K/mcL (1.6-8.9) H 04/24/16 05:20 APTT 36.1 Seconds (26.0-36.0) H 04/23/16 19:56 ABG pCO2 60 mmHg (35-45) H 04/24/16 06:16 ABG HCO3 39.8 mEQ/L (21-27) H 04/24/16 06:16 ABG Total CO2 41.6 mEq/L (20-26) H 04/24/16 06:16 ABG Base Excess 13.8 mEq/L (-2.0 to 3.0) H 04/24/16 06:16 VBG pH 7.29 pH Units (7.32-7.42) L 04/23/16 19:56 VBG pCO2 96 mmHg (41-51) H 04/23/16 19:56 VBG HCO3 46.2 mEq/L (21-27) H 04/23/16 19:56 Carbon Dioxide 31 mEq/L (19-29) H 04/24/16 05:20 BUN 29 mg/dL (7-20) H 04/24/16 05:20 BUN/Creatinine Ratio 45 (6-26) H 04/24/16 05:20 POC Glucose 99 (58-89) H 04/24/16 06:15 Phosphorus 5.3 mg/dL (2.3-4.7) H 04/23/16 19:56 Albumin 2.6 g/dL (3.5-5.0) L 04/24/16 05:20 Globulin 3.9 g/dL (2.4-3.5) H 04/24/16 05:20 Albumin/Globulin Ratio 0.7 (1.1-2.2) L 04/24/16 05:20 Urine Clarity Turbid (Clear) A 04/23/16 20:32 Urine Protein 100 mg/dL (Neg-Trace) H 04/23/16 20:32 Urine Blood Trace (Negative) H 04/23/16 20:32 Ur Leukocyte Esterase Large (Negative) H 04/23/16 20:32 Urine Microscopic RBC 5-15 per hpf (0-3) H 04/23/16 20:32 Urine Microscopic WBC TNTC per hpf (0-3) H 04/23/16 20:32 Ur Squamous Epith Cells Many per lpf (None-Few) H 04/23/16 20:32 Urine Bacteria Many per hpf (None-Few) H 04/23/16 20:32 Ur Culture Indicated? YES (NO) A 04/23/16 20:32 - Diagnostic Findings Chest x-ray: image reviewed (The chest x-ray reveals very severe kyphoscoliosis with distortion of them K, tortuous airway, cardiomegaly enlargement of the pulmonary arteries) - Clinical Findings Intake & Output: Intake & Output 04/23/16 04/24/16 04/24/16 23:59 07:59 15:59 Intake Total 0 / 0 Balance 0 / 0 Weight 40.1 kg Consult Discharge Plan - Plan Referrals: NO,PCP [Primary Care Provider] -
[2016-04-24] MEDS: *HR* Morphine 2 MG/ML SYRINGE IVP PRN ×2 (15:03→20:42)
[2016-04-24] MEDS: Latanoprost 2.5 ML BOTTLE BOTH EYES SCH (22:06)
[2016-04-24] MEDS ORDERED: Vancomycin 750 MG in D5% in Water 250 ML IVPB SCH (23:00)
[2016-04-25] MEDS: *HR* Heparin 5,000 UNIT/ML VIAL SQ SCH ×4 (00:03→23:26)
[2016-04-25] MEDS ORDERED: 0.9 % Sodium Chloride 250 ML ONE ×2 (00:25→13:02)
[2016-04-25 04:58] LABS: ABG Base Excess 10.9 mEq/L (-2.0 to 3.0); ABG HCO3 36.1 mEQ/L (21-27); ABG Oxygen Saturation 98 % (95-98); ABG PCO2 52 mmHg (35-45); ABG PH 7.45 pH Units (7.32-7.45); ABG PO2 93 mmHg (85-104); ABG TCO2 37.7 mEq/L (20-26)
[2016-04-25 04:59] LABS: Blood Gas FiO2 30 %
[2016-04-25] MEDS: *HR* LORazepam 2 MG/ML VIAL IVP PRN ×4 (06:07→23:21)
[2016-04-25] MEDS: Famotidine 20 MG TABLET GTUBE SCH ×2 (06:08→16:44)
[2016-04-25] MEDS: Levothyroxine 25 MCG TABLET PO SCH (06:08)
[2016-04-25] MEDS: *HR* Morphine 2 MG/ML SYRINGE IVP PRN ×3 (07:32→19:56)
[2016-04-25] MEDS: Chlorhexidine Rinse 15 ML MOUTHWASH MM SCH ×2 (07:33→20:28)
[2016-04-25] MEDS: Piperacillin/Tazobactam 3.375 GM in D5% in Water (Mini-Bag+) 100 ML IVPB SCH (07:34)
[2016-04-25] MEDS: Docusate Oral Soln 100 MG/10 ML UDC GTUBE SCH (07:36)
[2016-04-25] MEDS ORDERED: Aminoglycoside Consult 1 EACH MC ONE (08:45)
[2016-04-25 09:23] LABS: Basophils % 0.7 %; Eosinophils # 0.2 K/mcL (0.0-0.6); Eosinophils % 3.4 %; Hematocrit 29.9 % (35.3-44.9); Immature Granulocytes % 0.5 % (0-4); Lymphocytes # 1.3 K/mcL (0.6-4.6); Lymphocytes % 23.5 %; Mean Corpuscular HGB Conc 30.1 g/dL (31.6-35.5); Mean Corpuscular Hemoglobin 30.6 pg (28.0-33.3); Mean Corpuscular Volume 101.7 fL (83.0-100.0); Mean Platelet Volume 11.2 fL (9.4-12.4); Monocytes # 0.5 K/mcL (0.0-1.3); Monocytes % 9.1 %; Neutrophils # 3.5 K/mcL (1.6-8.9); Platelet Count 266 K/mcL (140-400); Red Blood Count 2.94 M/mcL (3.82-4.97); Red Cell Distribution Width 14.8 % (11.5-14.5); Segmented Neutrophils % 62.8 %
[2016-04-25 09:34] LABS: BUN/Creatinine Ratio 33 (6-26); Blood Urea Nitrogen 25 mg/dL (7-20); Calcium 9.6 mg/dL (8.6-10.8); Carbon Dioxide 26 mEq/L (19-29); Chloride 103 mEq/L (98-109); Glucose 117 mg/dL (70-99); Osmolality,Calculated 291 (280-300); Potassium 4.6 mEq/L (3.5-4.5); Sodium 138 mEq/L (136-145); eGFR For African Americans > 60 (> 60); eGFR For Non-African Americans > 60 (> 60)
--- NOTE | 2016-04-25 11:26 | Internal Med Progress Note ---
Date of Encounter: 04/25/16 Time of Encounter: :25 - Assessment and plan (1) Respiratory failure Current Visit: Yes Status: Acute Assessment and plan: Patient with vent dependence Chronic retainer as evidenced by metabolic alkalosis PCO2 has improved Continue Vent support Begin to taper off precedex with aim to discontinue Patient may be placed on ativan prn for agitation She is full code Qualifiers: Chronicity: acute on chronic Respiratory failure complication: hypercapnia Qualified Code(s): J96.22 - Acute and chronic respiratory failure with hypercapnia (2) Ventilator associated pneumonia Current Visit: Yes Status: Suspected Assessment and plan: Suspected Patient has received treatment at referral facility for 9 days It is unlikely that this is a new pneumonia Patient is afebrile and had no leukocytosis prior to admission She has been Levoflox, Zosyn and Vanco She is having very minimal O2 requirements on the Vent She is hypothermic Leukocytosis from 04/24 resolved may have been due to stress Preliminary blood and urine cultures negative Will hold off on antibiotics for now and monitor closely (3) Hypothyroidism Current Visit: Yes Status: Chronic Assessment and plan: Continue levothyroxine Qualifiers: Hypothyroidism type: unspecified Qualified Code(s): E03.9 - Hypothyroidism , unspecified (4) Diabetes Current Visit: Yes Status: Chronic Qualifiers: Diabetes mellitus type: type 2 Diabetes mellitus complication status: with unspecified complications 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 longterm insulin use status Qualified Code(s): E11.8 - Type 2 diabetes mellitus with unspecified complications (5) Restrictive lung disease due to kyphoscoliosis Current Visit: Yes Status: Chronic (6) Pulmonary hypertension Current Visit: Yes Status: Chronic (7) UTI (urinary tract infection) Current Visit: Yes Status: Suspected Assessment and plan: Suspected Follow urine culture Discontinue antibiotics Qualifiers: Urinary tract infection type: acute cystitis Hematuria presence: without hematuria Qualified Code(s): N30.00 - Acute cystitis without hematuria (8) Chronic respiratory failure Current Visit: Yes Status: Chronic Qualifiers: Respiratory failure complication: hypoxia and hypercapnia Qualified Code(s) : J96.11 - Chronic respiratory failure with hypoxia; J96.12 - Chronic respiratory failure with hypercapnia (9) Dementia Current Visit: Yes Status: Chronic Assessment and plan: Resume home meds Qualifiers: Dementia type: unspecified type Dementia behavioral disturbance: without behavioral disturbance Qualified Code(s): F03.90 - Unspecified dementia without behavioral disturbance (10) Malnutrition of moderate degree Current Visit: Yes Status: Chronic Assessment and plan: Nutrition consult noted Resume tube feeds - Subjective Interval history: 04/24 Initial encounter 71-year-old female with chronic respiratory failure with ventilatory dependent, developmental delay, type 2 diabetes, hypothyroidism, depression, hypertension, kyphoscoliosis with significant pulmonary restriction, severe pulmonary hypertension and anxiety. Patient was recently discharged from [facility] on 04/23/2016 after management for sepsis with septic shock, altered mental status, pneumonia , acute on chronic respiratory failure. Hospital stay was complicated by ventilator dependence . She is status post tracheostomy and PEG tube placement. she had received Zosyn from 9 days during that hospitalization for pneumonia Patient is en route from discharge facility to extended care facility when she developed acute on chronic respiratory failure with difficulty ventilating the patient. In the ER here, her tracheostomy tube was found with mucus plug and was cleaned and replaced. She was placed back on the ventilator. However,patient became agitated and restless requiring sedation with Precedex. Workup. Anemia, chronic and at baseline compared to discharge number from previous facility, leukocytosis with left shift, acute respiratory acidosis pH 7.29, PCO2 96, metabolic alkalosis with CO2 of 36, hyperkalemia, CXR with right upper lobe pneumonia. Physical exam vital signs bradycardic HR 49-56, blood pressure acceptable for age and weight systolic 91 diastolic 62, O2Sat 100% on ventilatory settings respiratory rate 10 , FiO2 50%, TV 300, PEEP of 5. Patient is an inpatient. She is deeply sedated, trach tube in place clean and dressings are clean, she has kyphoscoliosis with barrel shaped chest, she has equal chest movement bilaterally, good air entry is equal bilaterally, heart sounds S1 and S2 with no murmurs gallops or rubs. Abdomen is scaphoid, non-tender, moves with respiration gastrostomy tube in place, no pedal edema of lower extremities 04/25 Seen at bedside, borderline hypothermic with shamir hugger Responds to name call, states "fine" when asked how she is, and went back to sleep Per RN, patient states she is able to take liquids po Will titrate off precedex with aim of achieving baseline mental status Consult SW for d/c plan to SNF Discontinue restraints Pulmonary involvement appreciated - Constitutional Vitals: Temp Pulse Resp BP Pulse Ox 97.2 F L 49 11 92/62 98 04/25/16 11:08 04/25/16 11:08 04/25/16 11:08 04/25/16 11:08 04/25/16 11:08 Physical exam vital signs bradycardic HR 49-56, blood pressure acceptable for age and weight systolic 91 diastolic 62, O2Sat 100% on ventilatory settings respiratory rate 10 , FiO2 50%, TV 300, PEEP of 5. Patient is an inpatient. She is deeply sedated, trach tube in place clean and dressings are clean, she has kyphoscoliosis with barrel shaped chest, she has equal chest movement bilaterally, good air entry is equal bilaterally, heart sounds S1 and S2 with no murmurs gallops or rubs. Abdomen is scaphoid, non-tender, moves with respiration gastrostomy tube in place, no pedal edema of lower extremities General appearance: Present: cachectic, A&O X 0, mild distress (pulling at lines , fighting the ventilator). Absent: cooperative Internal Medicine: Result - Labs CBC & Chem 7: 04/25/16 09:10 04/25/16 09:10 Labs: Short CBC 04/25/16 Range/Units 09:10 WBC 5.6 D (4.3-11.1) K/mcL Hgb 9.0 L (11.5-15.4) g/dL Hct 29.9 L (35.3-44.9) % Plt Count 266 (140-400) K/mcL Neutrophils # 3.5 (1.6-8.9) K/mcL BMP 04/25/16 09:10 Sodium 138 Potassium 4.6 H Chloride 103 Carbon Dioxide 26 BUN 25 H Creatinine 0.75 Glucose 117 H Calcium 9.6 Cardiac Enzymes 04/24/16 Range/Units 16:13 Troponin I 0.01 (0-0.03) ng/mL - ABG Interpretation ABG results: ABG ABG pH 7.45 pH Units (7.32-7.45) 04/25/16 04:44 ABG pCO2 52 mmHg (35-45) H 04/25/16 04:44 ABG pO2 93 mmHg (85-104) 04/25/16 04:44 ABG O2 Saturation 98 % (95-98) 04/25/16 04:44 PT/INR, D-dimer PT 11.8 Seconds (9.4-12.1) 04/23/16 19:56 Consult Discharge Plan - Plan Referrals: NO,PCP [Primary Care Provider] -
--- NOTE | 2016-04-25 12:22 | Pulmonology Progress Note ---
Date of Encounter: 04/25/16 Time of Encounter: 10:50 Assessment and Plan (1) Chronic respiratory failure with hypoxia and hypercapnia Current Visit: Yes Status: Acute Chronic respiratory failure in this individual is due to severe kyphoscoliosis and resultant chest lisa dysfunction. She underwent a trial of ventilator weaning I believe at [facility] in [place] failed and was transferring to a long-term ventilatory facility in [facility] via mobile ICU. Apparently her tracheostomy device became dysfunctional and she was admitted to [facility]. The patient can be released tomorrow from my perspective to transfer to the intended recipient ventilatory facility. Continue full ventilatory support in the meantime. Code(s): J96.11 - Chronic respiratory failure with hypoxia; J96.12 - Chronic respiratory failure with hypercapnia SNOMED Code(s): 62489373, [id number] Subjective Principal diagnosis: Chronic respiratory failure with hypoxia hypercapnia, tracheostomy status Interval history: No new events were reported overnight discussion with the nursing staff. The patient remains on full low-level ventilatory support. Following placement of the new tracheostomy device yesterday, there have been no issues or difficulty accessing the distal airway for secretion removal. Objective PUL Vital signs: Last Vital Signs Temp 97.2 F L 04/25/16 11:08 Pulse 48 04/25/16 12:00 Resp 11 04/25/16 11:08 BP 92/62 04/25/16 11:08 Pulse Ox 98 04/25/16 11:08 General appearance: no acute distress, other (Cachectic frail-appearing female awake and alert in no distress) ENT: other (Tracheostomy stoma clean and dry) Auscultation: bilateral: diminished breath sounds, other (Severe kyphoscoliosis , paradoxical abdominal motion) Cardiovascular: regular rate and rhythm, other (Loud P2) Gastrointestinal: normoactive bowel sounds Extremities: no cyanosis, no edema non-focal exam Ventilator Settings Ventilator Settings: Ventilator Settings, Last 8 Hours Ventilator Mode A/C Ventilator Mode A/C Ventilator Mode A/C Ventilator Mode A/C Ventilator Mode A/C Ventilator Tidal Volume 300 Setting Ventilator Tidal Volume 300 Setting Ventilator Tidal Volume 300 Setting Ventilator Tidal Volume 300 Setting Ventilator Tidal Volume 300 Setting Ventilator Respiratory Rate 10 Setting Ventilator Respiratory Rate 10 Setting Ventilator Respiratory Rate 10 Setting Ventilator Respiratory Rate 10 Setting Ventilator Respiratory Rate 10 Setting Actual Respiratory Rate 16 Actual Respiratory Rate 16 Positive End Expiratory 5 Pressure Positive End Expiratory 5 Pressure Positive End Expiratory 5 Pressure Positive End Expiratory 5 Pressure Positive End Expiratory 5 Pressure Peak Inspiratory Airway 24 Pressure Peak Inspiratory Airway 24 Pressure Results - Laboratory Findings CBC and BMP: 04/25/16 09:10 04/25/16 09:10 ABG ABG pH 7.45 pH Units (7.32-7.45) 04/25/16 04:44 ABG pCO2 52 mmHg (35-45) H 04/25/16 04:44 ABG pO2 93 mmHg (85-104) 04/25/16 04:44 ABG O2 Saturation 98 % (95-98) 04/25/16 04:44 PT/INR, D-dimer PT 11.8 Seconds (9.4-12.1) 04/23/16 19:56 Abnormal lab findings: Abnormal lab results RBC 2.94 M/mcL (3.82-4.97) L 04/25/16 09:10 Hgb 9.0 g/dL (11.5-15.4) L 04/25/16 09:10 Hct 29.9 % (35.3-44.9) L 04/25/16 09:10 MCV 101.7 fL (83.0-100.0) H 04/25/16 09:10 MCHC 30.1 g/dL (31.6-35.5) L 04/25/16 09:10 RDW 14.8 % (11.5-14.5) H 04/25/16 09:10 APTT 36.1 Seconds (26.0-36.0) H 04/23/16 19:56 ABG pCO2 52 mmHg (35-45) H 04/25/16 04:44 ABG HCO3 36.1 mEQ/L (21-27) H 04/25/16 04:44 ABG Total CO2 37.7 mEq/L (20-26) H 04/25/16 04:44 ABG Base Excess 10.9 mEq/L (-2.0 to 3.0) H 04/25/16 04:44 VBG pH 7.29 pH Units (7.32-7.42) L 04/23/16 19:56 VBG pCO2 96 mmHg (41-51) H 04/23/16 19:56 VBG HCO3 46.2 mEq/L (21-27) H 04/23/16 19:56 Potassium 4.6 mEq/L (3.5-4.5) H 04/25/16 09:10 BUN 25 mg/dL (7-20) H 04/25/16 09:10 BUN/Creatinine Ratio 33 (6-26) H 04/25/16 09:10 Glucose 117 mg/dL (70-99) H 04/25/16 09:10 POC Glucose 207 (58-89) H 04/25/16 01:00 Phosphorus 5.3 mg/dL (2.3-4.7) H 04/23/16 19:56 Albumin 2.6 g/dL (3.5-5.0) L 04/24/16 05:20 Globulin 3.9 g/dL (2.4-3.5) H 04/24/16 05:20 Albumin/Globulin Ratio 0.7 (1.1-2.2) L 04/24/16 05:20 Urine Clarity Turbid (Clear) A 04/23/16 20:32 Urine Protein 100 mg/dL (Neg-Trace) H 04/23/16 20:32 Urine Blood Trace (Negative) H 04/23/16 20:32 Ur Leukocyte Esterase Large (Negative) H 04/23/16 20:32 Urine Microscopic RBC 5-15 per hpf (0-3) H 04/23/16 20:32 Urine Microscopic WBC TNTC per hpf (0-3) H 04/23/16 20:32 Ur Squamous Epith Cells Many per lpf (None-Few) H 04/23/16 20:32 Urine Bacteria Many per hpf (None-Few) H 04/23/16 20:32 Ur Culture Indicated? YES (NO) A 04/23/16 20:32 - Clinical Findings Intake & Output: Intake & Output 04/24/16 04/25/16 04/25/16 23:59 07:59 15:59 Intake Total 748 / 748 250 / 250 560 / 560 Output Total 800 / 800 800 / 800 400 / 400 Balance -52 / -52 -550 / -550 160 / 160 Weight 40.2 kg Consult Discharge Plan - Plan Referrals: NO,PCP [Primary Care Provider] -
[2016-04-25] MEDS ORDERED: Levofloxacin 750 MG/150 ML 750 MG/150 ML BAG IVPB SCH (22:00)
[2016-04-25] MEDS: Latanoprost 2.5 ML BOTTLE BOTH EYES SCH (22:32)
[2016-04-25] MEDS: Dexmedetomidine HCl 400 MCG/100 ML MLS IVC SCH (22:36)
[2016-04-26] MEDS ORDERED: 0.9 % Sodium Chloride 250 ML ONE (03:16)
[2016-04-26] MEDS: *HR* LORazepam 2 MG/ML VIAL IVP PRN ×2 (03:36→08:59)
[2016-04-26 05:48] LABS: Basophils % 0.7 %; Eosinophils # 0.4 K/mcL (0.0-0.6); Eosinophils % 7.7 %; Hematocrit 28.1 % (35.3-44.9); Hemoglobin 8.9 g/dL (11.5-15.4); Immature Granulocytes % 0.5 % (0-4); Lymphocytes # 1.4 K/mcL (0.6-4.6); Lymphocytes % 24.8 %; Mean Corpuscular HGB Conc 31.7 g/dL (31.6-35.5); Mean Corpuscular Hemoglobin 31.9 pg (28.0-33.3); Mean Corpuscular Volume 100.7 fL (83.0-100.0); Mean Platelet Volume 11.6 fL (9.4-12.4); Monocytes # 0.5 K/mcL (0.0-1.3); Monocytes % 9.3 %; Neutrophils # 3.2 K/mcL (1.6-8.9); Platelet Count 271 K/mcL (140-400); Red Blood Count 2.79 M/mcL (3.82-4.97); Red Cell Distribution Width 14.6 % (11.5-14.5)
[2016-04-26 06:01] LABS: BUN/Creatinine Ratio 33 (6-26); Blood Urea Nitrogen 22 mg/dL (7-20); Calcium 9.1 mg/dL (8.6-10.8); Carbon Dioxide 28 mEq/L (19-29); Chloride 103 mEq/L (98-109); Glucose 104 mg/dL (70-99); Osmolality,Calculated 290 (280-300); Potassium 4.5 mEq/L (3.5-4.5); Sodium 138 mEq/L (136-145); eGFR For African Americans > 60 (> 60); eGFR For Non-African Americans > 60 (> 60)
[2016-04-26] MEDS: *HR* Heparin 5,000 UNIT/ML VIAL SQ SCH (06:36)
[2016-04-26] MEDS: Levothyroxine 25 MCG TABLET PO SCH (06:37)
[2016-04-26] MEDS: Famotidine 20 MG TABLET GTUBE SCH (06:37)
--- NOTE | 2016-04-26 06:50 | Electrocardiograph Report ---
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
--- NOTE | 2016-04-26 07:01 | Electrocardiograph Report ---
[place] [id number] Test Date: 2016-04-23 Pat Name: Shabana Squires Department: 105 Room: 2N15 Gender: F Office Services Associate: : 1945 Requested By: Mark Coronado Order Number: [id number] Reading MD: Perry Talavera MD Measurements Intervals [place] Rate: 60 P: MS: 0 QRS: 67 QRSD: 69 T: 35 QT: 419 QTc: 420 Interpretive Statements SINUS RHYTHM WITH PACS LOW QRS VOLTAGE IN EXTREMITY LEADS Electronically Signed On 04-26-2016 7:00:12 EST by Perry Talavera MD
--- NOTE | 2016-04-26 08:47 | Physician Discharge Referral ---
ExtendedCare Referral Info Transfer To: [facility] Provider in Charge: Nathan Reilly Provider in Charge after Transfer: PCP Institutional Level of Care: Skilled - Diagnosis (1) Respiratory failure Priority: Primary Status: Chronic (2) Ventilator associated pneumonia Priority: Primary Status: Ruled-out (3) Hypothyroidism Priority: Secondary Status: Chronic (4) Diabetes Priority: Secondary Status: Chronic (5) Restrictive lung disease due to kyphoscoliosis Priority: Secondary Status: Chronic (6) Pulmonary hypertension Priority: Secondary Status: Chronic (7) UTI (urinary tract infection) Priority: Secondary Status: Suspected (8) Chronic respiratory failure Priority: Secondary Status: Chronic (9) Dementia Priority: Secondary Status: Chronic (10) Malnutrition of moderate degree Priority: Secondary Status: Chronic Prognosis: Poor Aware of Diagnosis: Patient Aware of Prognosis: Patient - Transfer Medications Prescriptions: OxyCODONE Immed Rel [Roxicodone 5 MG] 5 mg PO Q8HR PRN #24 tablet PRN Reason: Pain LORazepam [Ativan] 1 mg PO Q6H #20 tablet Home Medications: Brimonidine Tartrate [Alphagan P] 1 drop RIGHT EYE TID 04/23/16 [History] Buspirone HCl [Buspar] 7.5 mg PO BID 04/23/16 [History] Chlorhexidine Gluconate [Peridex] 15 ml MM BID 04/23/16 [History] Cholecalciferol (D-3) [Vitamin D] 1,000 unit PO DAILY 04/23/16 [History] Docusate [Colace] 100 mg PO DAILY 04/23/16 [History] Donepezil [Aricept] 10 mg PO HS 04/23/16 [History] Enoxaparin [Lovenox] 40 mg SQ DAILY 04/23/16 [History] Famotidine [Heartburn Prevention] 20 mg PO BID 04/23/16 [History] Furosemide [Lasix] 20 mg PO DAILY 04/23/16 [History] Insulin LISPRO [HumaLOG] 2 - 6 units SQ Q6H 04/23/16 [History] Lactulose 20 gm PO Q6H PRN 04/23/16 [History] Latanoprost [Xalatan] 1 drop BOTH EYES HS 04/23/16 [History] Levothyroxine [Synthroid] 25 mcg PO 0630 04/23/16 [History] Memantine HCl 10 mg PO BID 04/23/16 [History] Metformin [Glucophage] 500 mg PO QPM 04/23/16 [History] Multivitamin-Min/Iron/FA/Vit K [Multi-Day Plus Minerals Tablet] 1 each PO DAILY 04/23/16 [History] Ondansetron [Zofran] 4 mg IVP Q6H PRN 04/23/16 [History] Quetiapine Fumarate [Seroquel] 75 mg PO BID 04/23/16 [History] Sennosides [Senna] 8.6 mg PO DAILY 04/23/16 [History] LORazepam [Ativan] 1 mg PO Q6H #20 tablet 04/26/16 [Rx] OxyCODONE Immed Rel [Roxicodone 5 MG] 5 mg PO Q8HR PRN #24 tablet 04/26/16 [Rx] Allergies/Adverse Reactions: Allergies No Known Allergies Allergy (Verified 04/23/16 21:37) - Respiratory Orders Smoking Cessation: Smoking cessation has been advised. For more information, call the [place] Tobacco Quit Line at 1-200-SDYY-NOW. CERTIFICATION: I certify that the transfer of the above named patient to an Extended Care Facility is necessary for the continuing treatment of the diagnosis listed. The above information is true and accurate reflection of patient's current condition. Confidential - Redisclosure prohibited without a patient's written consent.
[2016-04-26] MEDS: Chlorhexidine Rinse 15 ML MOUTHWASH MM SCH (09:14)
[2016-04-26] MEDS: Docusate Oral Soln 100 MG/10 ML UDC GTUBE SCH (09:14)
[2016-04-26] MEDS: *HR* Morphine 2 MG/ML SYRINGE IVP PRN (09:30)
[2016-04-26] MEDS ORDERED: *HR* LORazepam Oral Conc 2 MG/ML SL PRN (10:17)
[2016-04-26 11:24] VITALS: BP 127/75
[2016-04-26] MEDS ORDERED: *HR* LORazepam Oral Conc 2 MG/ML PO SCH (12:00)
--- NOTE | 2016-04-26 12:59 | Discharge Summary ---
Date of Encounter: 04/26/16 Time of Encounter: 08:00 - Discharge Diagnosis (1) Respiratory failure Priority: Primary Status: Chronic Qualifiers: Chronicity: acute on chronic Respiratory failure complication: hypercapnia Qualified Code(s): J96.22 - Acute and chronic respiratory failure with hypercapnia (2) Ventilator associated pneumonia Priority: Primary Status: Ruled-out (3) Hypothyroidism Priority: Secondary Status: Chronic Qualifiers: Hypothyroidism type: unspecified Qualified Code(s): E03.9 - Hypothyroidism , unspecified (4) Diabetes Priority: Secondary Status: Chronic Qualifiers: Diabetes mellitus type: type 2 Diabetes mellitus complication status: with unspecified complications Diabetes mellitus care home insulin use: unspecified care home insulin use status Qualified Code(s): E11.8 - Type 2 diabetes mellitus with unspecified complications (5) Restrictive lung disease due to kyphoscoliosis Priority: Secondary Status: Chronic (6) Pulmonary hypertension Priority: Secondary Status: Chronic (7) UTI (urinary tract infection) Priority: Secondary Status: Suspected Qualifiers: Urinary tract infection type: acute cystitis Hematuria presence: without hematuria Qualified Code(s): N30.00 - Acute cystitis without hematuria (8) Chronic respiratory failure Priority: Secondary Status: Chronic Qualifiers: Respiratory failure complication: hypoxia and hypercapnia Qualified Code(s) : J96.11 - Chronic respiratory failure with hypoxia; J96.12 - Chronic respiratory failure with hypercapnia (9) Dementia Priority: Secondary Status: Chronic Qualifiers: Dementia type: unspecified type Dementia behavioral disturbance: without behavioral disturbance Qualified Code(s): F03.90 - Unspecified dementia without behavioral disturbance (10) Malnutrition of moderate degree Priority: Secondary Status: Chronic - Discharge Medications Prescriptions: OxyCODONE Immed Rel [Roxicodone 5 MG] 5 mg PO Q8HR PRN #24 tablet PRN Reason: Pain LORazepam [Ativan] 1 mg PO Q6H #20 tablet Home Medications: Brimonidine Tartrate [Alphagan P] 1 drop RIGHT EYE TID 04/23/16 [History] Buspirone HCl [Buspar] 7.5 mg PO BID 04/23/16 [History] Chlorhexidine Gluconate [Peridex] 15 ml MM BID 04/23/16 [History] Cholecalciferol (D-3) [Vitamin D] 1,000 unit PO DAILY 04/23/16 [History] Docusate [Colace] 100 mg PO DAILY 04/23/16 [History] Donepezil [Aricept] 10 mg PO HS 04/23/16 [History] Enoxaparin [Lovenox] 40 mg SQ DAILY 04/23/16 [History] Famotidine [Heartburn Prevention] 20 mg PO BID 04/23/16 [History] Furosemide [Lasix] 20 mg PO DAILY 04/23/16 [History] Insulin LISPRO [HumaLOG] 2 - 6 units SQ Q6H 04/23/16 [History] Lactulose 20 gm PO Q6H PRN 04/23/16 [History] Latanoprost [Xalatan] 1 drop BOTH EYES HS 04/23/16 [History] Levothyroxine [Synthroid] 25 mcg PO 0630 04/23/16 [History] Memantine HCl 10 mg PO BID 04/23/16 [History] Metformin [Glucophage] 500 mg PO QPM 04/23/16 [History] Multivitamin-Min/Iron/FA/Vit K [Multi-Day Plus Minerals Tablet] 1 each PO DAILY 04/23/16 [History] Ondansetron [Zofran] 4 mg IVP Q6H PRN 04/23/16 [History] Quetiapine Fumarate [Seroquel] 75 mg PO BID 04/23/16 [History] Sennosides [Senna] 8.6 mg PO DAILY 04/23/16 [History] LORazepam [Ativan] 1 mg PO Q6H #20 tablet 04/26/16 [Rx] OxyCODONE Immed Rel [Roxicodone 5 MG] 5 mg PO Q8HR PRN #24 tablet 04/26/16 [Rx] Allergies/Adverse Reactions: Allergies No Known Allergies Allergy (Verified 04/23/16 21:37) Date of admission: 04/24/16 04:00 Primary care physician: PCP NO Consults: 04/25/16 08:43 Consult to Industrial Welder [CONS] Routine Reason for SW Consult: ECF transfer Discharging clinician: Nathan Reilly Anticipated date of discharge: 04/26/16 - Patient Status Disposition: Transfer SNF Condition: Serious Functional capacity at discharge: bed bound Overall status at discharge: patient is progressing back to baseline - Discharge Instructions Instructions: Lorazepam (By mouth), Oxycodone, Rapid Release (By mouth), Tracheostomy Care (DC), Percutaneous Endoscopic Gastrostomy Insertion (DC), Hypothyroidism (DC), Diabetes Mellitus Type 2 in Adults (DC), Pneumonia (DC) Follow Up With: NO,PCP [Primary Care Provider] - (PATIENT IS FROM [facility], NO PCP APPOINTMENT NEEDED) - Diet and Activity Activity: resume usual activities as tolerated, wear oxygen at all times Interval History: See below Hospital course: 71-year-old female with chronic respiratory failure with ventilatory dependence , developmental delay, type 2 diabetes, hypothyroidism, depression, hypertension , kyphoscoliosis with significant pulmonary restriction, severe pulmonary hypertension and anxiety. Patient was recently discharged from [facility] on 04/23/2016 after management for sepsis with septic shock, altered mental status, pneumonia , acute on chronic respiratory failure. Hospital stay was complicated by ventilator dependence . She is status post tracheostomy and PEG tube placement. she had received Zosyn from 9 days during that hospitalization for pneumonia Patient is en route from discharge facility to extended care facility when she developed acute on chronic respiratory failure with difficulty ventilating the patient. In the ER here, her tracheostomy tube was found with mucus plug and was cleaned and replaced. She was placed back on the ventilator. However,patient became agitated and restless requiring sedation with Precedex. Workup on admission revealed Anemia, chronic and at baseline compared to discharge number from previous facility, leukocytosis with left shift, acute respiratory acidosis pH 7.29, PCO2 96, metabolic alkalosis with CO2 of 36, hyperkalemia, CXR with right upper lobe pneumonia. She was admitted for acute on chronic hypercapneic and hypoxic respiratory failure secondary to suspected VAP, mucus plugging of trach, Suspected UTI, Agitation Blood and Urine cultures were sent and she was started on empiric antibiotics for suspected UTI and VAP She was started on precedex for agitation Pulmonology was consulted for vent management and recommendations Respiratory acidosis has improved Patient is a chronic CO2 retainer Patient remained afebrile, no leukocytosis very minimal oxygen requirements per vent and blood, urine cultures returned negative Antibiotics were therefore discontinued as recommended by [employer] She is seen at bedside today, able to make few sentences, and clinically stable to be transferred out to the intended recipient ventilatory facility Resume home meds as prior stated - Time Spent with Patient Total time spent providing and/or coordinating discharge services: Greater than 30 minutes (45 minutes spent on chart review, face to face, arranging transfer with SW/NET WEB DEVELOPER, medication reconciliation and prescription) - Constitutional Vitals: Temp Pulse Resp BP Pulse Ox 98.6 F 70 20 127/75 95 04/26/16 11:21 04/26/16 11:21 04/26/16 11:31 04/26/16 11:21 04/26/16 11:31 General appearance: Present: cachectic, A&O X 0, mild distress (pulling at lines , fighting the ventilator). Absent: cooperative Exam: Physical exam vital signs HR has improved since discontinuation of precedex, blood pressure acceptable for age and weight systolic 91 diastolic 62, O2Sat 100% on ventilatory settings respiratory rate 10, FiO2 50%, TV 300, PEEP of 5. She is awake and alert, trach tube in place clean and dressings are clean, she has kyphoscoliosis with barrel shaped chest, she has equal chest movement bilaterally, good air entry is equal bilaterally, heart sounds S1 and S2 with no murmurs gallops or rubs. Abdomen is scaphoid, non-tender, moves with respiration gastrostomy tube in place, no pedal edema of lower extremities
--- NOTE | 2016-04-26 21:58 | Pulmonology Progress Note ---
Date of Encounter: 04/26/16 Time of Encounter: 08:30 Assessment and Plan (1) Chronic respiratory failure Status: Chronic Changed vent mode to VC + and that helped more comfort and asked respiratory therapist to start wean off and do CPAP trial on patient. Otherwise agree with supportive care. Qualifiers: Respiratory failure complication: hypoxia and hypercapnia Qualified Code(s) : J96.11 - Chronic respiratory failure with hypoxia; J96.12 - Chronic respiratory failure with hypercapnia Subjective Principal diagnosis: Chronic respiratory failure with hypoxia hypercapnia, tracheostomy status Interval history: Patient on vent Objective PUL Vital signs: Last Vital Signs Temp 98.6 F 04/26/16 11:21 Pulse 64 04/26/16 14:34 Resp 23 04/26/16 14:34 BP 127/75 04/26/16 11:21 Pulse Ox 98 04/26/16 14:34 General appearance: no acute distress ENT: other (trach in place) Neck: no lymphadenopathy Effort: mildly labored Auscultation: bilateral: diminished breath sounds Cardiovascular: regular rate and rhythm Gastrointestinal: normoactive bowel sounds unable to assess due to mental status Ventilator Settings Ventilator Settings: Ventilator Settings, Last 8 Hours Ventilator Mode VC+ Ventilator Tidal Volume 300 Setting Ventilator Respiratory Rate 10 Setting Actual Respiratory Rate 21 Positive End Expiratory 5 Pressure Peak Inspiratory Airway 24 Pressure Results - Laboratory Findings CBC and BMP: 04/26/16 05:14 04/26/16 05:14 ABG ABG pH 7.45 pH Units (7.32-7.45) 04/25/16 04:44 ABG pCO2 52 mmHg (35-45) H 04/25/16 04:44 ABG pO2 93 mmHg (85-104) 04/25/16 04:44 ABG O2 Saturation 98 % (95-98) 04/25/16 04:44 PT/INR, D-dimer PT 11.8 Seconds (9.4-12.1) 04/23/16 19:56 Abnormal lab findings: Abnormal lab results RBC 2.79 M/mcL (3.82-4.97) L 04/26/16 05:14 Hgb 8.9 g/dL (11.5-15.4) L 04/26/16 05:14 Hct 28.1 % (35.3-44.9) L 04/26/16 05:14 MCV 100.7 fL (83.0-100.0) H 04/26/16 05:14 RDW 14.6 % (11.5-14.5) H 04/26/16 05:14 APTT 36.1 Seconds (26.0-36.0) H 04/23/16 19:56 ABG pCO2 52 mmHg (35-45) H 04/25/16 04:44 ABG HCO3 36.1 mEQ/L (21-27) H 04/25/16 04:44 ABG Total CO2 37.7 mEq/L (20-26) H 04/25/16 04:44 ABG Base Excess 10.9 mEq/L (-2.0 to 3.0) H 04/25/16 04:44 VBG pH 7.29 pH Units (7.32-7.42) L 04/23/16 19:56 VBG pCO2 96 mmHg (41-51) H 04/23/16 19:56 VBG HCO3 46.2 mEq/L (21-27) H 04/23/16 19:56 BUN 22 mg/dL (7-20) H 04/26/16 05:14 BUN/Creatinine Ratio 33 (6-26) H 04/26/16 05:14 Glucose 104 mg/dL (70-99) H 04/26/16 05:14 POC Glucose 116 (58-89) H 04/26/16 05:21 Phosphorus 5.3 mg/dL (2.3-4.7) H 04/23/16 19:56 Albumin 2.6 g/dL (3.5-5.0) L 04/24/16 05:20 Globulin 3.9 g/dL (2.4-3.5) H 04/24/16 05:20 Albumin/Globulin Ratio 0.7 (1.1-2.2) L 04/24/16 05:20 Urine Clarity Turbid (Clear) A 04/23/16 20:32 Urine Protein 100 mg/dL (Neg-Trace) H 04/23/16 20:32 Urine Blood Trace (Negative) H 04/23/16 20:32 Ur Leukocyte Esterase Large (Negative) H 04/23/16 20:32 Urine Microscopic RBC 5-15 per hpf (0-3) H 04/23/16 20:32 Urine Microscopic WBC TNTC per hpf (0-3) H 04/23/16 20:32 Ur Squamous Epith Cells Many per lpf (None-Few) H 04/23/16 20:32 Urine Bacteria Many per hpf (None-Few) H 04/23/16 20:32 Ur Culture Indicated? YES (NO) A 04/23/16 20:32 Vancomycin Trough 4.6 mcg/mL (10-20) L 04/25/16 22:28 - Clinical Findings Intake & Output: Intake & Output 04/26/16 04/26/16 04/26/16 07:59 15:59 23:59 Intake Total 400 / 400 Output Total 350 / 350 275 / 275 Balance -339 / -339 125 / 125 Weight 41.1 kg Consult Discharge Plan - Plan Instructions: Lorazepam (By mouth), Oxycodone, Rapid Release (By mouth), Tracheostomy Care (DC), Percutaneous Endoscopic Gastrostomy Insertion (DC), Hypothyroidism (DC), Diabetes Mellitus Type 2 in Adults (DC), Pneumonia (DC) Referrals: NO,PCP [Primary Care Provider] - ([facility] NO [facility]CP APPOINTMENT NEEDED) Prescriptions: OxyCODONE Immed Rel [Roxicodone 5 MG] 5 mg PO Q8HR PRN #24 tablet PRN Reason: Pain LORazepam [Ativan] 1 mg PO Q6H #20 tablet
== END 2016-04-26 15:45 | DRG 208 ==
LOC: 2NNU 19:22 → EMEROO 19:22 → 2NNU 23:10
PROVIDERS: ADMIT Pediatrics; ATTEND Internal Medicine

== ENCOUNTER 2016-04-29 16:11 | Inpatient (IN) ==
[2016-04-29] MEDS ORDERED: D5% in Water 1,000 ML IV PRN (19:00)
[2016-04-29] MEDS ORDERED: Dextrose Gel 15 GM PO PRN ×3 (19:00→19:24)
[2016-04-29] MEDS ORDERED: *HR* Dextrose 50 % in Water (Syg) 50 ML SYRINGE IVP PRN (19:00)
[2016-04-29] MEDS ORDERED: 0.9 % Sodium Chloride 1,000 ML IVC SCH (19:15)
[2016-04-29] MEDS ORDERED: Lacri-Lube 3.5 GM TUBE BOTH EYES PRN (19:24)
[2016-04-29] MEDS ORDERED: Ondansetron 4 MG/2 ML VIAL IVP PRN (19:24)
[2016-04-29] MEDS ORDERED: Naloxone 0.4 MG/ML INJ IVP PRN ×2 (19:24)
[2016-04-29] MEDS ORDERED: Acetaminophen 325 MG TABLET PO PRN (19:24)
--- NOTE | 2016-04-29 19:24 | Internal Med History&Physical ---
<Osie Alcantar - Last Filed: 04/29/16 19:18> Date of Encounter: 04/29/16 Time of Encounter: 18:00 Assessment and Plan (1) Cardiac arrest Current visit: No Status: Acute Patient suffered cardiac arrest at assisted. Found by staff during rounds, ROSC achieved after 33 minutes of ACLS, 1 mg epi, 1 amp bicarbonate. Brought to [facility] followed by Saima. Reports of copious amount of secretions, appearing to be from tube feeds, found and suctioned at time of arrest. Patient unresponsive at this time, long-term trach and PEG tube in place. Central line placed in left femoral vein Continue fluids at 75 mL an hour Continue blood pressure support to achieve map above 60 and heart rate above 55 with dopamine and norepinephrine Sedated with Precedex and fentanyl Concern for aspiration pneumonia versus VAP, will start Zosyn Wheezing auscultated on exam, will start Solu-Medrol (2) Pneumonia Current visit: No Status: Suspected Plan as above Qualifiers: Pneumonia type: aspiration pneumonia Aspiration pneumonia type: due to vomit Laterality: unspecified laterality Lung location: unspecified part of lung Qualified Code(s): J69.0 - Pneumonitis due to inhalation of food and vomit (3) Chronic respiratory failure Current visit: No Status: Chronic Plan as above Qualifiers: Respiratory failure complication: unspecified whether with hypoxia or hypercapnia Qualified Code(s): J96.10 - Chronic respiratory failure, unspecified whether with hypoxia or hypercapnia (4) Dementia Current visit: No Status: Chronic Qualifiers: Dementia type: unspecified type Dementia behavioral disturbance: without behavioral disturbance Qualified Code(s): F03.90 - Unspecified dementia without behavioral disturbance (5) Diabetes Current visit: No Status: Chronic Hold oral hypoglycemics Start medium dose sliding scale insulin every 4 hours Qualifiers: Diabetes mellitus type: type 2 Diabetes mellitus complication status: with unspecified complications Diabetes mellitus parts counterman insulin use: unspecified parts counterman insulin use status Qualified Code(s): E11.8 - Type 2 diabetes mellitus with unspecified complications (6) DVT prophylaxis Current visit: No Status: Acute GI prophylaxis: Pantoprazole DVT prophylaxis Lovenox Neuro/sedation: Chronic dementia, MRDD, little responsiveness at baseline, sedated with Precedex and fentanyl, unsure of anoxic brain injury versus baseline mental status Cardiovascular: Post PEA versus asystole arrest, hypotension and bradycardia present, will start norepinephrine and dopamine titrated to map greater than 60 Pulmonary: Concern for aspiration pneumonia, COPD, 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, mechanically ventilated on tracheostomy, DuoNeb, Symbicort, Solu-Medrol Renal: No concerns at this time GI: Nothing by mouth for now Fluids/electrolytes: Normal saline at 75 mL an hour, mild hyperkalemia, elevated lactic acid, will trend Heme: Stable anemia, no leukocytosis ID: Likely aspiration, chronic tracheostomy, UA concerning (though contaminated) Lines: Left femoral, peripherals Disposition: Critical CODE STATUS: Full Goals of care discussion: GAYLE [place] - court-appointed guardian Lengthy discussion regarding goals of care/CODE STATUS, guardian unable to change CODE STATUS without court order. Guardian states the coat checker (Dev Matias) we will change it if there is physician documentation regarding her overall prognosis/quality of life. Otherwise guardian is open for CODE STATUS change and possible hospice. We will consult palliative care. (7) Goals of care, counseling/discussion Current visit: Yes Status: Acute Goals of care discussion: ADIELA Celeste Blancam - court-appointed guardian Lengthy discussion regarding goals of care/CODE STATUS, guardian unable to change CODE STATUS without court order. Guardian states the coat checker (Dev Matias) we will change it if there is physician documentation regarding her overall prognosis/quality of life. Otherwise guardian is open for CODE STATUS change and possible hospice. We will consult palliative care. Internal Medicine - H&P: HPI Chief complaint: Cardiac arrest Admitted From: Intrahospital Transfer Plans for Post Hospital Care: Transfer [facility] Facility History of present illness: Ms. Squires is a 71-year-old female with prior medical history of MRDD, diabetes , hypertension, dementia, COPD, significant pulmonary restriction, respiratory failure with tracheostomy who was brought to the [facility] by squad post cardiac arrest with return of spontaneous circulation. Per the documentation from [facility], she was found down at approximately 1:30 in the afternoon at the nursing facility at which she resides. He was uncertain at that time for how long she had been down, CPR was initiated by the staff. She was found to be in asystole versus slow PEA arrest. She was given 1 dose of epinephrine and one dose of bicarbonate and return of spontaneous circulation was achieved. Since ROSC was achieved patient had been in sinus rhythm with rate around 80. During the cardiac arrest she was found to have copious amounts of secretion in the oropharynx that appeared to be from her tube feeds. Chest x-ray performed in the [facility] did not show any acute cardiopulmonary disease. No leukocytosis is present, hemoglobin is stable, but lactic acid is 7.2. The elevation lactic acid is likely result of recent cardiac arrest. She had recently been discharged from [facility] on 04/26/16 after being treated for a mucous plug over tracheostomy with concerns for ventilator associated pneumonia. She is found not to have VAP at that time and was discharged. This episode came after having been discharged from [facility] on 04/23/16 where she underwent management for sepsis, septic shock, pneumonia, acute on chronic respiratory failure. Her stay at [facility] was complicated by ventilator dependent and she ended up receiving a total of 9 days antibiotic therapy with Zosyn. In speaking with the patients guardian, Celeste Caicedo, she consents to any medical procedures necessary at this time, but states that she would like to get the patients CODE STATUS changed, but was unable to do so at this time due to court order. She states that in order to change the patients CODE STATUS should need documentation from a physician. She expressed openness to palliative care and potential hospice were this to occur. Past Med Surg Social Fam HX - Past Medical History Medical history: cardiomyopathy, CHF, COPD, diabetes, GERD, glaucoma, hypertension, thyroid disease Psychiatric history: depression - Past Surgical History Surgical History: other (tracheostomy) - Social History Smoking Status: Unknown if ever smoked Alcohol use: unknown Drug use: unknown - Family History Father Hx Family Cardiac Disorders: Yes Internal Medicine - H&P: Meds Brimonidine Tartrate [Alphagan P] 1 drop RIGHT EYE TID 04/23/16 [History] Buspirone HCl [Buspar] 7.5 mg GTUBE BID 04/23/16 [History] Chlorhexidine Gluconate [Peridex] 15 ml MM BID 04/23/16 [History] Cholecalciferol (D-3) [Vitamin D] 1,000 unit GTUBE DAILY 04/23/16 [History] Docusate [Colace] 100 mg GTUBE DAILY 04/23/16 [History] Donepezil [Aricept] 10 mg GTUBE HS 04/23/16 [History] Enoxaparin [Lovenox] 40 mg SQ DAILY 04/23/16 [History] Famotidine [Heartburn Prevention] 20 mg GTUBE BID 04/23/16 [History] Furosemide [Lasix] 20 mg GTUBE DAILY 04/23/16 [History] Insulin LISPRO [HumaLOG] 2 - 6 units SQ Q6H 04/23/16 [History] Lactulose 20 gm GTUBE Q6H PRN 04/23/16 [History] Latanoprost [Xalatan] 1 drop BOTH EYES HS 04/23/16 [History] Levothyroxine [Synthroid] 25 mcg GTUBE 0630 04/23/16 [History] Memantine HCl 10 mg GTUBE BID 04/23/16 [History] Metformin [Glucophage] 500 mg GTUBE QPM 04/23/16 [History] Ondansetron [Zofran] 4 mg GTUBE Q6H PRN 04/23/16 [History] Quetiapine Fumarate [Seroquel] 100 mg GTUBE BID 04/23/16 [History] Sennosides [Senna] 8.6 mg GTUBE DAILY 04/23/16 [History] Haloperidol [Haldol] 0.5 mg GTUBE Q2H PRN 04/29/16 [History] LORazepam [Ativan] 1 mg GTUBE Q4H 04/29/16 [History] Multivitamin with Minerals [Apatate Forte] 15 ml GTUBE DAILY 04/29/16 [History] OxyCODONE Immed Rel [Roxicodone 5 MG] 5 mg GTUBE Q4H PRN 04/29/16 [History] Allergies No Known Allergies Allergy (Verified 04/23/16 21:37) ROS unobtainable: due to mental status All Systems PM: A 10-system review of systems was performed and is negative for pertinent findings except as documented above in the HPI. - Constitutional Vitals: Pulse Resp BP Pulse Ox 47 14 100/54 96 04/29/16 18:08 04/29/16 18:08 04/29/16 18:08 04/29/16 18:08 General appearance: Present: cachectic, A&O X 0, underweight - Head Head exam: Present: atraumatic, normocephalic - Eye Eye exam: Present: conjuntiva pink, sclera anicteric Pupils: Present: fixed, miosis - ENT ENT exam: Present: mucous membranes moist - Neck Neck exam general surgery: Present: trachea midline. Absent: lymphadenopathy - Respiratory Respiratory exam: Present: wheezes. Absent: accessory muscle use, CTAB, rales, rhonchi - Cardiovascular Cardiovascular exam: Present: RRR, +S1, +S2, systolic murmur (2/6). Absent: diastolic murmur, gallop, rubs - GI/Abdominal GI/Abdominal exam: Present: normal bowel sounds, soft, no peritoneal signs. Absent: distended - Extremities Exam Extremities exam: Present: radial pulses palpable and symetrical. Absent: calf tenderness, cyanotic, pedal edema, warm (Bilateral feet cold) Additional comments: Contracted, folded across chest - Neurological Exam Neurological exam: Absent: alert, oriented X3, facial droop - Skin Skin exam: Present: normal color, warm. Absent: rash <Joselyn,Jair P - Last Filed: 04/30/16 09:12> Internal Medicine - H&P: HPI History of present illness: Ms. Squires is a 71 year old female All Systems PM: A 10-system review of systems was performed and is negative for pertinent findings except as documented above in the HPI. - Constitutional Vitals: Temp Pulse Resp BP Pulse Ox 97.5 F L 70 22 108/61 100 04/30/16 04:00 04/30/16 09:00 04/30/16 09:00 04/30/16 09:00 04/30/16 09:00 Internal Med - H&P Results - Labs CBC & Chem 7: 04/30/16 02:58 04/30/16 02:25 Labs: Short CBC 04/30/16 Range/Units 02:58 WBC 10.6 (4.3-11.1) K/mcL Hgb 9.5 L (11.5-15.4) g/dL Hct 29.8 L (35.3-44.9) % Plt Count 284 (140-400) K/mcL Neutrophils # 9.8 H (1.6-8.9) K/mcL BMP 04/30/16 02:25 Sodium 143 Potassium 3.4 L D Chloride 104 Carbon Dioxide 28 BUN 32 H Creatinine 0.81 Glucose 55 L Calcium 8.8 Liver Function 04/30/16 Range/Units 02:25 Total Bilirubin 0.6 (0.2-1.2) mg/dL AST 285 H (5-34) Units/L ALT 230 H (0-55) Units/L Alkaline Phosphatase 101 (38-126) Units/L Albumin 2.7 L (3.5-5.0) g/dL - ABG Interpretation ABG results: 04/29/16 04/30/16 04/30/16 21:41 05:03 07:00 ABG pH 7.41 7.62 H* 7.56 H ABG pCO2 52 H 29 L 32 L ABG pO2 105 H 118 H 117 H ABG HCO3 33.0 H 29.8 H 28.7 H ABG Total CO2 34.6 H 30.7 H 29.7 H ABG O2 Saturation 98 99 H 99 H ABG Base Excess 7.2 H 8.7 H 6.7 H - Impressions ITS Impressions Chest X-Ray 04/29/16 19:36 IMPRESSION: 1. Study limited by patient's severe kyphoscoliosis and the arms overlying the chest. 2. Suspected bibasilar airspace disease, representing either atelectasis, pneumonia, or aspiration. 3. Stable cardiomegaly. D/ / Kevin Ring MD / Kevin Ring MD Interpreting Provider: Kevin Ring MD X-Ray 04/29/16 19:37 IMPRESSION: 1. Left femoral central venous catheter in proper position with tip overlying the region of the distal IVC. 2. No radiographic evidence of an orogastric tube. 3. Multiple nonspecific catheters overlying the left upper and left lower quadrants, possibly percutaneous feeding tubes. Clinical correlation is advised. 4. Large amount of stool throughout the colon, suggestive of constipation. The bowel gas pattern is nonspecific. 5. Bibasilar airspace disease with chronic cardiomegaly. D/ / Kevin Ring MD / Kevin Ring MD Interpreting Provider: Kevin Ring MD - Attending Attestation I examined this patient and my medical decision-making was reviewed with the SLOT FLOOR PERSON/PA/Advanced Practice Nurse/Resident Physician. I agree with the documented findings, disposition and treatment plan as described except to the extent set forth below.
[2016-04-29] MEDS ORDERED: *HR* Heparin 5,000 UNIT/ML VIAL SQ SCH (19:30)
[2016-04-29] MEDS ORDERED: Ipratropium/Albuterol Neb 3 ML IH PRN (19:42)
--- NOTE | 2016-04-29 20:19 | Procedure Note ---
<Osei Alcantar - Last Filed: 04/29/16 20:17> Date of procedure: 04/29/16 Pre-op diagnosis: s/p cardiac arrest Post-op diagnosis: same Procedure: Central Venous Catheter (CVC, Central Line) Placement Date: 04/29/16 Time: 1900 Indication: Hemodynamic monitoring/Intravenous access Resident: Dr. Alcantar Attending: Dr. Alves A time-out was completed verifying correct patient, procedure, site, positioning , and special equipment if applicable. The patient was placed in a dependent position appropriate for central line placement based on the vein to be cannulated. The patients left and right groin was prepped and draped in sterile fashion. 1% Lidocaine was used to anesthetize the surrounding skin area. A triple lumen 9-American Cordis catheter was introduced into the the common femoral vein using the Seldinger technique and under ultrasound guidance. The catheter was threaded smoothly over the guide wire and appropriate blood return was obtained. Each lumen of the catheter was evacuated of air and flushed with sterile saline. The catheter was then sutured in place to the skin and a sterile dressing applied. Perfusion to the extremity distal to the point of catheter insertion was checked and found to be adequate. Dr. Alves was present for the entire procedure. Estimated Blood Loss: 10 cc The patient tolerated the procedure well and there were no complications. Anesthesia: IV sedation Surgeon: Osei Alcantar Security Incident Response Engineer: Florencio Aaron Estimated blood loss (cc): 10 IV fluids (cc): 0 Urine output (cc): 0 Pathology: none sent Condition: critical Disposition: ICU <Jair Alves - Last Filed: 04/30/16 09:11> Procedure: I examined this patient and my medical decision-making was reviewed with the FIRE PROTECTION ENGINEERING TECHNICIAN/PA/Advanced Practice Nurse/Resident Physician. I agree with the documented findings, disposition and treatment plan as described except to the extent set forth below. i was present during procedure
[2016-04-29] MEDS: 0.9 % Sodium Chloride 1,000 ML IVC SCH (20:44)
[2016-04-29] MEDS: Ipratropium/Albuterol Neb 3 ML IH SCH ×2 (20:52→23:59)
[2016-04-29] MEDS: Insulin LISPRO 300 UNITS/3 ML VIAL SQ SCH (20:53)
[2016-04-29] MEDS: Lacri-Lube 3.5 GM TUBE BOTH EYES SCH (20:53)
[2016-04-29] MEDS: Piperacillin/Tazobactam 3.375 GM in D5% in Water (Mini-Bag+) 100 ML IVPB SCH (20:53)
[2016-04-29] MEDS: Chlorhexidine Rinse 15 ML MOUTHWASH MM SCH (20:53)
[2016-04-29] MEDS: Budesonide/Formoterol 160/4.5 MDI IH SCH (20:54)
[2016-04-29] MEDS: Pantoprazole 40 MG VIAL IVP SCH (20:56)
[2016-04-29] MEDS: Sennosides 8.6 MG TABLET PO SCH (21:19)
[2016-04-29 21:54] LABS: ABG Base Excess 7.2 mEq/L (-2.0 to 3.0); ABG Oxygen Saturation 98 % (95-98); ABG PCO2 52 mmHg (35-45); ABG PH 7.41 pH Units (7.32-7.45); ABG PO2 105 mmHg (85-104); ABG TCO2 34.6 mEq/L (20-26)
[2016-04-29 21:56] LABS: Blood Gas FiO2 50 %; Blood Gas PEEP 5 cm H2O; Blood Gas Respiration Rate 14; Blood Gas VT 450 cc
[2016-04-30] MEDS: Lacri-Lube 3.5 GM TUBE BOTH EYES SCH ×6 (00:14→19:49)
[2016-04-30] MEDS: MethylPREDNISolone 40 MG/ML VIAL IVP SCH ×3 (00:17→14:50)
[2016-04-30] MEDS: Insulin LISPRO 300 UNITS/3 ML VIAL SQ SCH ×5 (00:24→15:08)
[2016-04-30 02:31] LABS: Hematocrit 29.8 % (35.3-44.9); Platelet Count 284 K/mcL (140-400)
[2016-04-30 02:35] LABS: INR 1.3; Prothrombin Time 13.9 Seconds (9.4-12.1)
[2016-04-30 02:43] LABS: Alanine Aminotransferase 230 Units/L (0-55); Albumin 2.7 g/dL (3.5-5.0); Albumin/Globulin Ratio 0.7 (1.1-2.2); Alkaline Phosphatase 101 Units/L (38-126); Aspartate Amino Transferase 285 Units/L (5-34); BUN/Creatinine Ratio 40 (6-26); Bilirubin,Total 0.6 mg/dL (0.2-1.2); Blood Urea Nitrogen 32 mg/dL (7-20); Calcium 8.8 mg/dL (8.6-10.8); Carbon Dioxide 28 mEq/L (19-29); Chloride 104 mEq/L (98-109); Glucose 55 mg/dL (70-99); Magnesium 1.5 mg/dL (1.6-2.6); Osmolality,Calculated 300 (280-300); Phosphorous 1.9 mg/dL (2.3-4.7); Potassium 3.4 mEq/L (3.5-4.5); Sodium 143 mEq/L (136-145); Total Protein 6.7 g/dL (6.0-8.3); eGFR For African Americans > 60 (> 60); eGFR For Non-African Americans > 60 (> 60)
[2016-04-30 03:05] LABS: Hemoglobin 9.5 g/dL (11.5-15.4); Immature Platelets 4.4 % (1.1-6.1); Mean Corpuscular HGB Conc 31.9 g/dL (31.6-35.5); Mean Corpuscular Hemoglobin 31.1 pg (28.0-33.3); Mean Corpuscular Volume 97.7 fL (83.0-100.0); Mean Platelet Volume 10.5 fL (9.4-12.4); Red Blood Count 3.05 M/mcL (3.82-4.97); Red Cell Distribution Width 14.9 % (11.5-14.5)
[2016-04-30] MEDS: 0.9 % Sodium Chloride 1,000 ML IVC SCH ×3 (03:19→14:50)
[2016-04-30] MEDS: Piperacillin/Tazobactam 3.375 GM in D5% in Water (Mini-Bag+) 100 ML IVPB SCH ×3 (03:22→19:47)
[2016-04-30 03:26] LABS: Lymphocytes # 0.4 K/mcL (0.6-4.6); Monocytes # 0.4 K/mcL (0.0-1.3); Neutrophils # 9.8 K/mcL (1.6-8.9)
[2016-04-30 03:27] LABS: Platelet Estimate Normal (Normal)
[2016-04-30] MEDS: FentaNYL (PF) 1,000 MCG in 0.9 % Sodium Chloride 80 ML IVC SCH ×2 (03:56→16:49)
[2016-04-30] MEDS: Ipratropium/Albuterol Neb 3 ML IH SCH ×5 (04:06→20:07)
[2016-04-30 05:22] LABS: ABG Base Excess 8.7 mEq/L (-2.0 to 3.0); ABG HCO3 29.8 mEQ/L (21-27); ABG Oxygen Saturation 99 % (95-98); ABG PCO2 29 mmHg (35-45); ABG PO2 118 mmHg (85-104); ABG TCO2 30.7 mEq/L (20-26)
[2016-04-30 05:23] LABS: Blood Gas FiO2 50 %
[2016-04-30 05:24] LABS: ABG PH 7.62 pH Units (7.32-7.45)
[2016-04-30] MEDS: Norepinephrine 4 MG in D5% in Water 250 ML IVC SCH ×2 (06:30→16:48)
[2016-04-30] MEDS: Dexmedetomidine HCl 400 MCG/100 ML MLS IVC SCH ×2 (06:30→16:49)
[2016-04-30] MEDS: *HR* Enoxaparin 40 MG/0.4 ML SYRINGE SQ SCH (06:52)
[2016-04-30] MEDS: Chlorhexidine Rinse 15 ML MOUTHWASH MM SCH ×2 (07:19→19:48)
[2016-04-30] MEDS: Pantoprazole 40 MG VIAL IVP SCH (07:19)
--- NOTE | 2016-04-30 07:38 | Pulmonology Consult Note ---
<RíosJhonathan - Last Filed: 04/30/16 11:06> Date of Encounter: 04/30/16 Time of Encounter: 07:36 Assessment and Plan (1) Cardiac arrest Current Visit: Yes Status: Acute [facility] Found by staff during rounds, ROSC achieved after 33 minutes of ACLS, 1 mg epi, 1 amp bicarbonate. Brought to [place] [facility] followed by Saima. Reports of copious amount of secretions, appearing to be from tube feeds, found and suctioned at time of arrest. Patient unresponsive at this time, long-term trach and PEG tube in place. Central line placed in left femoral vein Continue fluids at 75 mL an hour Continue blood pressure support to achieve map above 60 and heart rate above 55 with dopamine and norepinephrine as needed Sedated with Precedex and fentanyl Concern for aspiration pneumonia versus VAP, will start Zosyn Wheezing auscultated on exam, will start Solu-Medrol subq insulin sliding scale electrolyte protocol instituted GI prophylaxis: Protonix DVT Prophylaxis: Lovenox Neuro/sedation: Chronic dementia, MRDD, little responsiveness at baseline, sedated with Precedex and fentanyl, unsure of anoxic brain injury versus baseline mental status Cardiovascular: Post PEA versus asystole arrest, hypotension and bradycardia present, will start norepinephrine and dopamine titrated to map greater than 60 Pulmonary: Concern for aspiration pneumonia, COPD, 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, mechanically ventilated on tracheostomy, DuoNeb, Symbicort, Solu-Medrol Renal: No concerns at this time GI: Nothing by mouth for now Fluids/electrolytes: Normal saline at 75 mL an hour, mild hyperkalemia, elevated lactic acid, will trend Heme: Stable anemia, no leukocytosis ID: Likely aspiration, chronic tracheostomy, UA concerning (though contaminated) Lines: Left femoral, peripherals Disposition: Critical CODE STATUS: Full Goals of care discussion: GAYLE [place] - court-appointed guardian Lengthy discussion regarding goals of care/CODE STATUS, guardian unable to change CODE STATUS without court order. Guardian states the financial data analyst (Dev Matias) we will change it if there is physician documentation regarding her overall prognosis/quality of life. Otherwise guardian is open for CODE STATUS change and possible hospice. We will consult palliative care. (2) Pneumonia Current Visit: No Status: Suspected Qualifiers: Pneumonia type: aspiration pneumonia Aspiration pneumonia type: due to vomit Laterality: unspecified laterality Lung location: unspecified part of lung Qualified Code(s): J69.0 - Pneumonitis due to inhalation of food and vomit (3) Chronic respiratory failure Current Visit: Yes Status: Chronic Qualifiers: Respiratory failure complication: unspecified whether with hypoxia or hypercapnia Qualified Code(s): J96.10 - Chronic respiratory failure, unspecified whether with hypoxia or hypercapnia (4) Dementia Current Visit: No Status: Chronic Qualifiers: Dementia type: unspecified type Dementia behavioral disturbance: without behavioral disturbance Qualified Code(s): F03.90 - Unspecified dementia without behavioral disturbance (5) Diabetes Current Visit: No Status: Chronic Qualifiers: Diabetes mellitus type: type 2 Diabetes mellitus complication status: with unspecified complications Diabetes mellitus fdc insulin use: unspecified fdc insulin use status Qualified Code(s): E11.8 - Type 2 diabetes mellitus with unspecified complications (6) DVT prophylaxis Current Visit: No Status: Acute History of Present Illness Consult date: 04/30/16 Requesting physician: Osei Alcantar Reason for consult: other (Respiratory failure) Chief complaint: Cardiac arrest History of present illness: Ms. Squires is a 71-year-old female with prior medical history of MRDD, diabetes , hypertension, dementia, COPD, significant pulmonary restriction, respiratory failure with tracheostomy who was brought to the [facility] by squad post cardiac arrest with return of spontaneous circulation. Per the documentation from [facility], she was found down at approximately 1:30 in the afternoon at the nursing facility at which she resides. CPR was initiated and the patient had ROSC after approximately 33 minutes. No leukocytosis is present, hemoglobin is stable, lactic acid was initially 7.2 with repeat of 2.3. She had recently been discharged from [facility] on 04/26/16 after being treated for a mucous plug over tracheostomy. This episode came after having been discharged from [facility] on 04/23/16 where she underwent management for sepsis, septic shock, pneumonia, acute on chronic respiratory failure. Her stay at [facility] was complicated by ventilator dependent and she ended up receiving a total of 9 days antibiotic therapy with Zosyn. In speaking with the patients guardian, Celeste Caicedo, she consents to any medical procedures necessary at this time, but states that she would like to get the patients CODE STATUS changed, but was unable to do so at this time due to court order. She states that in order to change the patients CODE STATUS should need documentation from a physician. She expressed openness to palliative care and potential hospice were this to occur. Past Med Surg Social Fam HX - Past Medical History Medical history: cardiomyopathy, CHF, COPD, diabetes, GERD, glaucoma, hypertension, thyroid disease Psychiatric history: depression - Past Surgical History Surgical History: other (tracheostomy) - Social History Smoking Status: Unknown if ever smoked Alcohol use: unknown Drug use: unknown - Family History Father Hx Family Cardiac Disorders: Yes Medications and Allergies Brimonidine Tartrate [Alphagan P] 1 drop RIGHT EYE TID 04/23/16 [History] Buspirone HCl [Buspar] 7.5 mg GTUBE BID 04/23/16 [History] Chlorhexidine Gluconate [Peridex] 15 ml MM BID 04/23/16 [History] Cholecalciferol (D-3) [Vitamin D] 1,000 unit GTUBE DAILY 04/23/16 [History] Docusate [Colace] 100 mg GTUBE DAILY 04/23/16 [History] Donepezil [Aricept] 10 mg GTUBE HS 04/23/16 [History] Enoxaparin [Lovenox] 40 mg SQ DAILY 04/23/16 [History] Famotidine [Heartburn Prevention] 20 mg GTUBE BID 04/23/16 [History] Furosemide [Lasix] 20 mg GTUBE DAILY 04/23/16 [History] Insulin LISPRO [HumaLOG] 2 - 6 units SQ Q6H 04/23/16 [History] Lactulose 20 gm GTUBE Q6H PRN 04/23/16 [History] Latanoprost [Xalatan] 1 drop BOTH EYES HS 04/23/16 [History] Levothyroxine [Synthroid] 25 mcg GTUBE 0630 04/23/16 [History] Memantine HCl 10 mg GTUBE BID 04/23/16 [History] Metformin [Glucophage] 500 mg GTUBE QPM 04/23/16 [History] Ondansetron [Zofran] 4 mg GTUBE Q6H PRN 04/23/16 [History] Quetiapine Fumarate [Seroquel] 100 mg GTUBE BID 04/23/16 [History] Sennosides [Senna] 8.6 mg GTUBE DAILY 04/23/16 [History] Haloperidol [Haldol] 0.5 mg GTUBE Q2H PRN 04/29/16 [History] LORazepam [Ativan] 1 mg GTUBE Q4H 04/29/16 [History] Multivitamin with Minerals [Apatate Forte] 15 ml GTUBE DAILY 04/29/16 [History] OxyCODONE Immed Rel [Roxicodone 5 MG] 5 mg GTUBE Q4H PRN 04/29/16 [History] Allergies No Known Allergies Allergy (Verified 04/23/16 21:37) ROS unobtainable: due to mental status All Systems: A 10-system review of systems was performed and is negative for pertinent findings except as documented above in the HPI. Physical Examination Vital Signs: Vital Signs, Last 4 Hours Temp Pulse Resp BP Pulse Ox 04/30/16 07:00 75 23 116/58 95 04/30/16 06:18 22 94 L 04/30/16 06:00 69 20 117/64 95 04/30/16 05:00 70 22 120/76 94 L 04/30/16 04:06 20 99 04/30/16 04:00 97.5 F L 71 20 127/74 99 General appearance: other (intubated and sedated) Eyes: injected ENT: oropharynx moist Neck: supple Effort: other (intubated and sedated) Inspection: kyphosis Auscultation: bilateral: wheezes Cardiovascular: regular rate and rhythm, murmur noted Gastrointestinal: normoactive bowel sounds Integumentary: normal Extremities: no cyanosis, no edema, no clubbing unable to assess due to mental status Ventilator Settings Ventilator Settings: Ventilator Settings, Last 8 Hours Ventilator Mode VC+ Ventilator Mode VC+ Ventilator Mode VC+ Ventilator Mode VC+ Ventilator Mode VC+ Ventilator Mode VC+ Ventilator Mode VC+ Ventilator Mode VC+ Ventilator Tidal Volume 380 Setting Ventilator Tidal Volume 380 Setting Ventilator Tidal Volume 450 Setting Ventilator Tidal Volume 450 Setting Ventilator Tidal Volume 450 Setting Ventilator Tidal Volume 450 Setting Ventilator Tidal Volume 450 Setting Ventilator Tidal Volume 450 Setting Ventilator Respiratory Rate 10 Setting Ventilator Respiratory Rate 10 Setting Ventilator Respiratory Rate 14 Setting Ventilator Respiratory Rate 14 Setting Ventilator Respiratory Rate 14 Setting Ventilator Respiratory Rate 14 Setting Ventilator Respiratory Rate 14 Setting Ventilator Respiratory Rate 14 Setting Actual Respiratory Rate 23 Actual Respiratory Rate 23 Actual Respiratory Rate 20 Actual Respiratory Rate 20 Actual Respiratory Rate 20 Actual Respiratory Rate 15 Actual Respiratory Rate 18 Positive End Expiratory 5 Pressure Positive End Expiratory 5 Pressure Positive End Expiratory 5 Pressure Positive End Expiratory 5 Pressure Positive End Expiratory 5 Pressure Positive End Expiratory 5 Pressure Positive End Expiratory 5 Pressure Positive End Expiratory 5 Pressure Peak Inspiratory Airway 23 Pressure Peak Inspiratory Airway 24 Pressure Peak Inspiratory Airway 29 Pressure Peak Inspiratory Airway 27 Pressure Peak Inspiratory Airway 27 Pressure Peak Inspiratory Airway 40 Pressure Peak Inspiratory Airway 34 Pressure Results - Laboratory Findings CBC and BMP: 04/30/16 02:58 04/30/16 02:25 ABG ABG pH 7.62 pH Units (7.32-7.45) H* 04/30/16 05:03 ABG pCO2 29 mmHg (35-45) L 04/30/16 05:03 ABG pO2 118 mmHg (85-104) H 04/30/16 05:03 ABG O2 Saturation 99 % (95-98) H 04/30/16 05:03 PT/INR, D-dimer PT 13.9 Seconds (9.4-12.1) H 04/30/16 02:25 Abnormal lab findings: Abnormal lab results RBC 3.05 M/mcL (3.82-4.97) L 04/30/16 02:58 Hgb 9.5 g/dL (11.5-15.4) L 04/30/16 02:58 Hct 29.8 % (35.3-44.9) L 04/30/16 02:58 RDW 14.9 % (11.5-14.5) H 04/30/16 02:58 Band Neutrophils % 8.0 % (0-4) H 04/30/16 02:58 Neutrophils # 9.8 K/mcL (1.6-8.9) H 04/30/16 02:58 Lymphocytes # 0.4 K/mcL (0.6-4.6) L 04/30/16 02:58 PT 13.9 Seconds (9.4-12.1) H 04/30/16 02:25 ABG pH 7.62 pH Units (7.32-7.45) H* 04/30/16 05:03 ABG pCO2 29 mmHg (35-45) L 04/30/16 05:03 ABG pO2 118 mmHg (85-104) H 04/30/16 05:03 ABG HCO3 29.8 mEQ/L (21-27) H 04/30/16 05:03 ABG Total CO2 30.7 mEq/L (20-26) H 04/30/16 05:03 ABG O2 Saturation 99 % (95-98) H 04/30/16 05:03 ABG Base Excess 8.7 mEq/L (-2.0 to 3.0) H 04/30/16 05:03 Potassium 3.4 mEq/L (3.5-4.5) L D 04/30/16 02:25 BUN 32 mg/dL (7-20) H 04/30/16 02:25 BUN/Creatinine Ratio 40 (6-26) H 04/30/16 02:25 Glucose 55 mg/dL (70-99) L 04/30/16 02:25 POC Glucose 130 (58-89) H 04/30/16 07:29 Lactic Acid 2.3 mmol/L (0.5-2.2) H 04/29/16 20:26 Phosphorus 1.9 mg/dL (2.3-4.7) L 04/30/16 02:25 Magnesium 1.5 mg/dL (1.6-2.6) L 04/30/16 02:25 AST 285 Units/L (5-34) H 04/30/16 02:25 ALT 230 Units/L (0-55) H 04/30/16 02:25 Albumin 2.7 g/dL (3.5-5.0) L 04/30/16 02:25 Globulin 4.0 g/dL (2.4-3.5) H 04/30/16 02:25 Albumin/Globulin Ratio 0.7 (1.1-2.2) L 04/30/16 02:25 - Clinical Findings Intake & Output: Intake & Output 04/29/16 04/29/16 04/30/16 15:59 23:59 07:59 Intake Total 157.8 / 157.8 1386.8 / 1386.8 Output Total 550 / 550 450 / 450 Balance -392.2 / -392.2 936.8 / 936.8 Weight 42.5 kg 42.5 kg Consult Discharge Plan - Plan Referrals: NO,PCP [Primary Care Provider] - <Keagan Marin - Last Filed: 04/30/16 12:41> All Systems: A 10-system review of systems was performed and is negative for pertinent findings except as documented above in the HPI. Physical Examination Vital Signs: Vital Signs, Last 4 Hours Temp Pulse Resp BP Pulse Ox 04/30/16 12:00 77 14 109/62 99 04/30/16 11:44 99.5 F 04/30/16 11:01 10 111/62 100 04/30/16 11:00 70 15 111/62 100 04/30/16 10:00 69 17 107/61 100 04/30/16 09:00 70 22 108/61 100 Ventilator Settings Ventilator Settings: Ventilator Settings, Last 8 Hours Ventilator Mode VC+ Ventilator Mode VC+ Ventilator Mode VC+ Ventilator Mode VC+ Ventilator Mode VC+ Ventilator Mode VC+ Ventilator Mode VC+ Ventilator Mode VC+ Ventilator Mode VC+ Ventilator Mode VC+ Ventilator Tidal Volume 350 Setting Ventilator Tidal Volume 350 Setting Ventilator Tidal Volume 350 Setting Ventilator Tidal Volume 380 Setting Ventilator Tidal Volume 380 Setting Ventilator Tidal Volume 380 Setting Ventilator Tidal Volume 380 Setting Ventilator Tidal Volume 380 Setting Ventilator Tidal Volume 380 Setting Ventilator Tidal Volume 450 Setting Ventilator Respiratory Rate 10 Setting Ventilator Respiratory Rate 10 Setting Ventilator Respiratory Rate 10 Setting Ventilator Respiratory Rate 10 Setting Ventilator Respiratory Rate 10 Setting Ventilator Respiratory Rate 10 Setting Ventilator Respiratory Rate 10 Setting Ventilator Respiratory Rate 10 Setting Ventilator Respiratory Rate 10 Setting Ventilator Respiratory Rate 14 Setting Actual Respiratory Rate 14 Actual Respiratory Rate 11 Actual Respiratory Rate 15 Actual Respiratory Rate 17 Actual Respiratory Rate 22 Actual Respiratory Rate 17 Actual Respiratory Rate 23 Actual Respiratory Rate 23 Positive End Expiratory 5 Pressure Positive End Expiratory 5 Pressure Positive End Expiratory 5 Pressure Positive End Expiratory 5 Pressure Positive End Expiratory 5 Pressure Positive End Expiratory 5 Pressure Positive End Expiratory 5 Pressure Positive End Expiratory 5 Pressure Positive End Expiratory 5 Pressure Positive End Expiratory 5 Pressure Peak Inspiratory Airway 22 Pressure Peak Inspiratory Airway 30 Pressure Peak Inspiratory Airway 22 Pressure Peak Inspiratory Airway 22 Pressure Peak Inspiratory Airway 22 Pressure Peak Inspiratory Airway 23 Pressure Peak Inspiratory Airway 23 Pressure Peak Inspiratory Airway 24 Pressure Results - Laboratory Findings CBC and BMP: 04/30/16 02:58 04/30/16 02:25 ABG ABG pH 7.56 pH Units (7.32-7.45) H 04/30/16 07:00 ABG pCO2 32 mmHg (35-45) L 04/30/16 07:00 ABG pO2 117 mmHg (85-104) H 04/30/16 07:00 ABG O2 Saturation 99 % (95-98) H 04/30/16 07:00 PT/INR, D-dimer PT 13.9 Seconds (9.4-12.1) H 04/30/16 02:25 Abnormal lab findings: Abnormal lab results RBC 3.05 M/mcL (3.82-4.97) L 04/30/16 02:58 Hgb 9.5 g/dL (11.5-15.4) L 04/30/16 02:58 Hct 29.8 % (35.3-44.9) L 04/30/16 02:58 RDW 14.9 % (11.5-14.5) H 04/30/16 02:58 Band Neutrophils % 8.0 % (0-4) H 04/30/16 02:58 Neutrophils # 9.8 K/mcL (1.6-8.9) H 04/30/16 02:58 Lymphocytes # 0.4 K/mcL (0.6-4.6) L 04/30/16 02:58 PT 13.9 Seconds (9.4-12.1) H 04/30/16 02:25 ABG pH 7.56 pH Units (7.32-7.45) H 04/30/16 07:00 ABG pCO2 32 mmHg (35-45) L 04/30/16 07:00 ABG pO2 117 mmHg (85-104) H 04/30/16 07:00 ABG HCO3 28.7 mEQ/L (21-27) H 04/30/16 07:00 ABG Total CO2 29.7 mEq/L (20-26) H 04/30/16 07:00 ABG O2 Saturation 99 % (95-98) H 04/30/16 07:00 ABG Base Excess 6.7 mEq/L (-2.0 to 3.0) H 04/30/16 07:00 Potassium 3.4 mEq/L (3.5-4.5) L D 04/30/16 02:25 BUN 32 mg/dL (7-20) H 04/30/16 02:25 BUN/Creatinine Ratio 40 (6-26) H 04/30/16 02:25 Glucose 55 mg/dL (70-99) L 04/30/16 02:25 POC Glucose 155 (58-89) H 04/30/16 11:42 Lactic Acid 2.3 mmol/L (0.5-2.2) H 04/29/16 20:26 Phosphorus 1.9 mg/dL (2.3-4.7) L 04/30/16 02:25 Magnesium 1.5 mg/dL (1.6-2.6) L 04/30/16 02:25 AST 285 Units/L (5-34) H 04/30/16 02:25 ALT 230 Units/L (0-55) H 04/30/16 02:25 Albumin 2.7 g/dL (3.5-5.0) L 04/30/16 02:25 Globulin 4.0 g/dL (2.4-3.5) H 04/30/16 02:25 Albumin/Globulin Ratio 0.7 (1.1-2.2) L 04/30/16 02:25 - Clinical Findings Intake & Output: Intake & Output 04/29/16 04/30/16 04/30/16 23:59 07:59 15:59 Intake Total 157.8 / 157.8 1389.8 / 1389.8 6 / 6 Output Total 550 / 550 450 / 450 350 / 350 Balance -392.2 / -392.2 939.8 / 939.8 -344 / -344 Weight 42.5 kg 42.5 kg - Attending Attestation I examined this patient and my medical decision-making was reviewed with the BAG MACHINE ADJUSTER/PA/Advanced Practice Nurse/Resident Physician. I agree with the documented findings, disposition and treatment plan as described except to the extent set forth below. Patient seen and examined. Labs, radiology, chart personally reviewed. Agree with resident's history and physical, assessment, plan with following comments: TAPER AND FLOATER: Patient doesn't follows commands, I suspect there is anoxic brain injury and her baseline is unknown. Pulmonary: Changed vent setting due to her acute respiratory alkalosis and lowered TV. Patient has tracheostomy and she is ventilatory dependent. There is a possibility of aspiration pneumonia and she is on broad-spectrum antibiotic. Cardiovascular: Status post cardiac arrest and patient and chart which could be related to the cardiac event and prognosis is poor. Patient on dopamine to wean off and keep MAP around 60 mmHg. Lactic acid related to shock. GI: Nutrition per dietary and GI prophylaxis per routine. Patient will be nothing by mouth for now Heme: DVT prophylaxis per routine ID: Continue antibiotics and plan to de-escalation Renal; urine out put and renal funtion reviewed Endorcine: blood glucose is monitored Lines: all lines checked and no evidence of infections Skin: skin care to prevent pressure ulcers per nursing routine care Palliative care to follow up with power of securities attorney to address CODE STATUS due to poor prognosis I spent 40 min of Critical Care time with this patient. It involved decision making of high complexity to assess, manipulate, and support vital organ system failure and/or to prevent further life threatening deterioration of the patient' s condition. The time involved in the performance of separately reportable procedures was not counted toward critical care time.
[2016-04-30] MEDS: Budesonide/Formoterol 160/4.5 MDI IH SCH ×2 (07:40→20:07)
[2016-04-30 07:45] LABS: ABG HCO3 28.7 mEQ/L (21-27); ABG PCO2 32 mmHg (35-45); ABG PH 7.56 pH Units (7.32-7.45); ABG PO2 117 mmHg (85-104); ABG TCO2 29.7 mEq/L (20-26)
[2016-04-30 07:46] LABS: ABG Base Excess 6.7 mEq/L (-2.0 to 3.0); ABG Oxygen Saturation 99 % (95-98); Blood Gas FiO2 50 %
[2016-04-30] MEDS ORDERED: Sodium Phosphate 30 MMOL in D5% in Water 100 ML IVPB PRN (10:57)
[2016-04-30] MEDS ORDERED: Potassium Chloride 40 MEQ/200 ML BAG IVPB PRN (10:57)
--- NOTE | 2016-04-30 10:59 | Palliative - Consult Note ---
Date of Encounter: 04/30/16 Time of Encounter: 10:50 - Assessment and Plan (1) Generalized pain Current Visit: Yes Status: Acute Assessment and plan: Patient off all sedation and pain medication since at least 730 am in preparation for neuro evaluation. Will follow and monitor (2) Counseling regarding advanced care planning and goals of care Current Visit: Yes Status: Acute Assessment and plan: Discussed with pt guardian, Atty Celeste Mcdonald ([phone]) re: goals of care. Updated on pt clinical situation. She is requesting neurological evaluation for brain injury as well as letter with pt clinical status and prognosis. Stated it would be Tuesday before she could get letter to the county judge and decision be made about code status and life sustaining interventions. Celeste will be in [place] for this weekend, but will call to get update on her condition. She will be in court the rest of the afternoon. Fax number to guardian office is [phone]. Celeste also reached out to pt living relatives and I received a call from a cousin , Preeti, who stated patient has first cousins and aunt still involved in her care and they may visit this weekend. Will continue to follow. Early Tuesday am, will get letter faxed to [facility] [employer] [employer] and proceed from there. (3) Cardiac arrest Current Visit: Yes Status: Acute (4) Chronic respiratory failure with hypoxia and hypercapnia Current Visit: No Status: Acute Palliative-CN HPI - Data of Consult Consult date: 04/30/16 Requesting Physician: Keagan Marin MD Primary Care Provider: PCP NO - Consult Narrative History of present illness: Ms. Squires is a 71 year old female who presented to [facility], after she was found pulseless by [facility] staff and ACLS was began. It is reported pt had CPR for 33 min before return of spontaneous circulation. She has a history of pneumonia and was at a hospital in [facility], where she was unable to wean off the ventilator and trach was performed. She was sent to [facility] in [facility] and from there transitioned to [facility]. Last week - upon transition to [facility], she went into respiratory failure and EMS had trouble ventilating her. She was brought here to [place] and here a few days for suspected mucous plugging and ventilator associated pneumonia. She was transferred back to [facility] last week. She currently has no sedation and is on the ventilator. Unresponsive, eyes are open. Does not follow any commands. Remains on dopamine. CC: Keagan Marin MD Past Med Surg Social Fam HX - Past Medical History Medical history: cardiomyopathy, CHF, COPD, diabetes, GERD, glaucoma, hypertension, thyroid disease Psychiatric history: depression - Past Surgical History Surgical History: other (tracheostomy) - Social History Smoking Status: Unknown if ever smoked Alcohol use: unknown Drug use: unknown - Family History Father Hx Family Cardiac Disorders: Yes Medications and Allergies Brimonidine Tartrate [Alphagan P] 1 drop RIGHT EYE TID 04/23/16 [History] Buspirone HCl [Buspar] 7.5 mg GTUBE BID 04/23/16 [History] Chlorhexidine Gluconate [Peridex] 15 ml MM BID 04/23/16 [History] Cholecalciferol (D-3) [Vitamin D] 1,000 unit GTUBE DAILY 04/23/16 [History] Docusate [Colace] 100 mg GTUBE DAILY 04/23/16 [History] Donepezil [Aricept] 10 mg GTUBE HS 04/23/16 [History] Enoxaparin [Lovenox] 40 mg SQ DAILY 04/23/16 [History] Famotidine [Heartburn Prevention] 20 mg GTUBE BID 04/23/16 [History] Furosemide [Lasix] 20 mg GTUBE DAILY 04/23/16 [History] Insulin LISPRO [HumaLOG] 2 - 6 units SQ Q6H 04/23/16 [History] Lactulose 20 gm GTUBE Q6H PRN 04/23/16 [History] Latanoprost [Xalatan] 1 drop BOTH EYES HS 04/23/16 [History] Levothyroxine [Synthroid] 25 mcg GTUBE 0630 04/23/16 [History] Memantine HCl 10 mg GTUBE BID 04/23/16 [History] Metformin [Glucophage] 500 mg GTUBE QPM 04/23/16 [History] Ondansetron [Zofran] 4 mg GTUBE Q6H PRN 04/23/16 [History] Quetiapine Fumarate [Seroquel] 100 mg GTUBE BID 04/23/16 [History] Sennosides [Senna] 8.6 mg GTUBE DAILY 04/23/16 [History] Haloperidol [Haldol] 0.5 mg GTUBE Q2H PRN 04/29/16 [History] LORazepam [Ativan] 1 mg GTUBE Q4H 04/29/16 [History] Multivitamin with Minerals [Apatate Forte] 15 ml GTUBE DAILY 04/29/16 [History] OxyCODONE Immed Rel [Roxicodone 5 MG] 5 mg GTUBE Q4H PRN 04/29/16 [History] Allergies No Known Allergies Allergy (Verified 04/23/16 21:37) ROS unobtainable: due to endotracheal tube Palliative Care-Exam - Constitutional Vitals: Temp Pulse Resp BP Pulse Ox 97.5 F L 69 17 107/61 100 04/30/16 04:00 04/30/16 10:00 04/30/16 10:00 04/30/16 10:00 04/30/16 10:00 General appearance: Present: no acute distress - Head Head Exam: Present: normal inspection, normocephalic - Respiratory Additional comments: Remains on vent support - Expanded Respiratory Exam Location: rhonchi: Left, Right, Upper - Cardiovascular Cardiovascular exam: Present: +S1, +S2 - GI/Abdominal Exam GI/Abdominal exam: Present: diminished bowel sounds, soft additional comments: PEG intact and to gravity drainage at this time. - Catheter Type: Urethral (Hennessy) Additional comments: Urine yellow - some sediment noted in tubing - Neurological Exam Additional comments: Does not follow any commands, does not make any eye contact. - Skin Skin exam: Present: dry, normal color Internal Medicine - CN: Reslt - Labs CBC & Chem 7: 04/30/16 02:58 04/30/16 02:25 Labs: Short CBC 04/30/16 Range/Units 02:58 WBC 10.6 (4.3-11.1) K/mcL Hgb 9.5 L (11.5-15.4) g/dL Hct 29.8 L (35.3-44.9) % Plt Count 284 (140-400) K/mcL Neutrophils # 9.8 H (1.6-8.9) K/mcL BMP 04/30/16 02:25 Sodium 143 Potassium 3.4 L D Chloride 104 Carbon Dioxide 28 BUN 32 H Creatinine 0.81 Glucose 55 L Calcium 8.8 Liver Function 04/30/16 Range/Units 02:25 Total Bilirubin 0.6 (0.2-1.2) mg/dL AST 285 H (5-34) Units/L ALT 230 H (0-55) Units/L Alkaline Phosphatase 101 (38-126) Units/L Albumin 2.7 L (3.5-5.0) g/dL - ABG Interpretation ABG results: ABG ABG pH 7.56 pH Units (7.32-7.45) H 04/30/16 07:00 ABG pCO2 32 mmHg (35-45) L 04/30/16 07:00 ABG pO2 117 mmHg (85-104) H 04/30/16 07:00 ABG O2 Saturation 99 % (95-98) H 04/30/16 07:00 PT/INR, D-dimer PT 13.9 Seconds (9.4-12.1) H 04/30/16 02:25 - Impressions Impressions Chest X-Ray 04/29/16 19:36 IMPRESSION: 1. Study limited by patient's severe kyphoscoliosis and the arms overlying the chest. 2. Suspected bibasilar airspace disease, representing either atelectasis, pneumonia, or aspiration. 3. Stable cardiomegaly. D/ / Kevin Ring MD / Kevin Ring MD Interpreting Provider: Kevin Ring MD X-Ray 04/29/16 19:37 IMPRESSION: 1. Left femoral central venous catheter in proper position with tip overlying the region of the distal IVC. 2. No radiographic evidence of an orogastric tube. 3. Multiple nonspecific catheters overlying the left upper and left lower quadrants, possibly percutaneous feeding tubes. Clinical correlation is advised. 4. Large amount of stool throughout the colon, suggestive of constipation. The bowel gas pattern is nonspecific. 5. Bibasilar airspace disease with chronic cardiomegaly. D/ / Kevin Ring MD / Kevin Ring MD Interpreting Provider: Kevin Ring MD Consult Discharge Plan - Plan Referrals: NO,PCP [Primary Care Provider] - Palliative Quality Palliative Quality: Screen for Code Status: NA, Screen for Goals of Care: NA, Screen for Pain: NA, If Pain Regimen Started, Initiate Bowel Regimen: NA, Screen for Nausea/Vomitting: NA Code Status: 04/29/16 19:24 Resuscitation Status: Active [RES] Routine Comment: Resuscitation Status: Full Code
[2016-04-30] MEDS: Magnesium Sulfate 2 GM in D5% in Water 100 ML IVPB PRN (12:58)
[2016-04-30] MEDS: Potassium Phosphate 44 MEQ in 0.9 % Sodium Chloride 250 ML IVPB PRN (12:58)
--- NOTE | 2016-04-30 16:15 | Neurology - Consult Note ---
Date of Encounter: 04/30/16 Time of Encounter: 16:13 Assessment and Plan (1) Anoxic encephalopathy Current Visit: Yes Status: Acute Patient already had been sick for some time and has been treated with sepsis as well as has chronic respiratory failure on tracheostomy, who had a cardiopulmonary arrest and received CPR - 33 minutes, did have a pulse and now she is off pressors. It has been more than 12 hours now and she has not shown any significant sign of improvement. Patient did have some brain stem reflexes positive, she is breathing over the VENT at the same time she did have a gag reflex positive, though I was not able to get any corneal reflexes, she also did not has any pupillary response, and at the same time nor spontaneous motor movement noted. Considering her overall condition, with prolonged arrest I suspect this patient has suffered significant anoxic hypoxic brain damage. Though she did have brainstem reflexes but apparently may have suffered significant hypoxic damage to her already WEAK brain, present history of MRDD as well as multiple other medical conditions and significant recent illness, may aLL be contributing to it as well. She just had a EEG we will review it for any seizure abnormalities, CT of the head did not show any acute bleed or stroke. I suspect patient has suffered anoxic damage and perhaps may not be able to return back to her usual baseline, even she is able to wake up some but may not be able to do usual daily activities or may not be quite independent. As it is only 24 hours perhaps may give her some more time and to see if there is any improvement in her overall neurological function in the next 24 or 26 hours, and if there is no change in that case chances of any reasonable recovery is very less. (2) MR (mental retardation) Current Visit: Yes Status: Acute (3) MR (mental retardation) Current Visit: Yes Status: Acute (4) Cardiac arrest Current Visit: Yes Status: Acute Patient suffered cardiac arrest at senior care. Found by staff during rounds, ROSC achieved after 33 minutes of ACLS, 1 mg epi, 1 amp bicarbonate. Brought to [facility] followed by Saima. Reports of copious amount of secretions, appearing to be from tube feeds, found and suctioned at time of arrest. Patient unresponsive at this time, long-term trach and PEG tube in place. Central line placed in left femoral vein Continue fluids at 75 mL an hour Continue blood pressure support to achieve map above 60 and heart rate above 55 with dopamine and norepinephrine Sedated with Precedex and fentanyl Concern for aspiration pneumonia versus VAP, will start Zosyn Wheezing auscultated on exam, will start Solu-Medrol (5) Chronic respiratory failure with hypoxia and hypercapnia Current Visit: No Status: Acute History of Present Illness HPI: Ms. Squires is a 71 year old female with prior medical history of MRDD, diabetes , hypertension, dementia, COPD, significant pulmonary restriction, respiratory failure with tracheostomy, seen in [facility] earlier and than transfered to [place] , s/p cardiac arrest , Per the documentation from [facility], she was found down at approximately 1:30 in the afternoon at the nursing facility at which she resides. CPR was initiated and the patient had ROSC after approximately 33 minutes. She was recently been discharged from [facility] on 04/26/16 after being treated for a mucous plug over tracheostomy. This episode came after having been discharged from [facility] on 04/23/16 where she underwent management for sepsis, septic shock, pneumonia, acute on chronic respiratory failure. as per POA in order to change CODE STATUS she need documentation, palliative care has been consulted. Past Med Surg Social Fam HX - Past Medical History Medical history: cardiomyopathy, CHF, COPD, diabetes, GERD, glaucoma, hypertension, thyroid disease Psychiatric history: depression - Past Surgical History Surgical History: other (tracheostomy) - Social History Smoking Status: Unknown if ever smoked Alcohol use: unknown Drug use: unknown - Family History Father Hx Family Cardiac Disorders: Yes Medications and Allergies Brimonidine Tartrate [Alphagan P] 1 drop RIGHT EYE TID 04/23/16 [History] Buspirone HCl [Buspar] 7.5 mg GTUBE BID 04/23/16 [History] Chlorhexidine Gluconate [Peridex] 15 ml MM BID 04/23/16 [History] Cholecalciferol (D-3) [Vitamin D] 1,000 unit GTUBE DAILY 04/23/16 [History] Docusate [Colace] 100 mg GTUBE DAILY 04/23/16 [History] Donepezil [Aricept] 10 mg GTUBE HS 04/23/16 [History] Enoxaparin [Lovenox] 40 mg SQ DAILY 04/23/16 [History] Famotidine [Heartburn Prevention] 20 mg GTUBE BID 04/23/16 [History] Furosemide [Lasix] 20 mg GTUBE DAILY 04/23/16 [History] Insulin LISPRO [HumaLOG] 2 - 6 units SQ Q6H 04/23/16 [History] Lactulose 20 gm GTUBE Q6H PRN 04/23/16 [History] Latanoprost [Xalatan] 1 drop BOTH EYES HS 04/23/16 [History] Levothyroxine [Synthroid] 25 mcg GTUBE 0630 04/23/16 [History] Memantine HCl 10 mg GTUBE BID 04/23/16 [History] Metformin [Glucophage] 500 mg GTUBE QPM 04/23/16 [History] Ondansetron [Zofran] 4 mg GTUBE Q6H PRN 04/23/16 [History] Quetiapine Fumarate [Seroquel] 100 mg GTUBE BID 04/23/16 [History] Sennosides [Senna] 8.6 mg GTUBE DAILY 04/23/16 [History] Haloperidol [Haldol] 0.5 mg GTUBE Q2H PRN 04/29/16 [History] LORazepam [Ativan] 1 mg GTUBE Q4H 04/29/16 [History] Multivitamin with Minerals [Apatate Forte] 15 ml GTUBE DAILY 04/29/16 [History] OxyCODONE Immed Rel [Roxicodone 5 MG] 5 mg GTUBE Q4H PRN 04/29/16 [History] Allergies No Known Allergies Allergy (Verified 04/23/16 21:37) All Systems: UNABLE TO OBTAIN, PT UNRESPONSIVE Physical Examination - Vital Signs Vital Signs: Initial Vital Signs Resp Pulse Ox 14 99 04/29/16 18:02 04/29/16 18:02 - Exam Exam: LIMITED Neurological examination as patient is unresponsive. HEART : S1 S2 AUDIBLE, LUNGS; DECREASE BREATH SOUNDS, EXT ; NO PEDAL EDEMA - Constitutional General appearance: other (INTUBATED, with treach. cachetic appearance. no spontaneous activity, no withdrawl to deep pain) - Neurologic Mental Status Examination: coma Mental Status Examination: She is intubated and not on any sedation unresponsive. PUPILS ARE NON REACTIVE, 2 MM. GAG IS POSITIVE CORNEAL ARE NEGATIVE NO WITHDRAWAL TO DEEP PAIN NO SPONTANEOUS MOVEMENT SOME BREATHING OVER THE VENT NO MOTOR MOVEMENT NOTED Results - Laboratory Findings CBC and BMP: 04/30/16 02:58 04/30/16 02:25 Abnormal lab findings: Abnormal lab results RBC 3.05 M/mcL (3.82-4.97) L 04/30/16 02:58 Hgb 9.5 g/dL (11.5-15.4) L 04/30/16 02:58 Hct 29.8 % (35.3-44.9) L 04/30/16 02:58 RDW 14.9 % (11.5-14.5) H 04/30/16 02:58 Band Neutrophils % 8.0 % (0-4) H 04/30/16 02:58 Neutrophils # 9.8 K/mcL (1.6-8.9) H 04/30/16 02:58 Lymphocytes # 0.4 K/mcL (0.6-4.6) L 04/30/16 02:58 PT 13.9 Seconds (9.4-12.1) H 04/30/16 02:25 ABG pH 7.56 pH Units (7.32-7.45) H 04/30/16 07:00 ABG pCO2 32 mmHg (35-45) L 04/30/16 07:00 ABG pO2 117 mmHg (85-104) H 04/30/16 07:00 ABG HCO3 28.7 mEQ/L (21-27) H 04/30/16 07:00 ABG Total CO2 29.7 mEq/L (20-26) H 04/30/16 07:00 ABG O2 Saturation 99 % (95-98) H 04/30/16 07:00 ABG Base Excess 6.7 mEq/L (-2.0 to 3.0) H 04/30/16 07:00 Potassium 3.4 mEq/L (3.5-4.5) L D 04/30/16 02:25 BUN 32 mg/dL (7-20) H 04/30/16 02:25 BUN/Creatinine Ratio 40 (6-26) H 04/30/16 02:25 Glucose 55 mg/dL (70-99) L 04/30/16 02:25 POC Glucose 163 (58-89) H 04/30/16 14:53 Lactic Acid 2.3 mmol/L (0.5-2.2) H 04/29/16 20:26 Phosphorus 1.9 mg/dL (2.3-4.7) L 04/30/16 02:25 Magnesium 1.5 mg/dL (1.6-2.6) L 04/30/16 02:25 AST 285 Units/L (5-34) H 04/30/16 02:25 ALT 230 Units/L (0-55) H 04/30/16 02:25 Albumin 2.7 g/dL (3.5-5.0) L 04/30/16 02:25 Globulin 4.0 g/dL (2.4-3.5) H 04/30/16 02:25 Albumin/Globulin Ratio 0.7 (1.1-2.2) L 04/30/16 02:25 - Diagnostic Findings Additional findings: CT HEAD, NO BLEED OR INFARCT , FLORENTINO SINUSITIS Consult Discharge Plan - Plan Referrals: NO,PCP [Primary Care Provider] -
--- NOTE | 2016-04-30 17:24 | EEG/EMG/Oth Biometrics Report ---
EEG Procedure Report Date of procedure: 04/30/16 EEG Procedure: Routine EEG Procedure Note: Patient admitted with the anoxic encephalopathy intubated not on any sedation Routine EEG Routine 18-channel digital EEG was obtained to rule out any seizure activity or focal abnormalities. FINDINGS: Background rhythm during awake stage shows periods of normal, high brain activity -- the bursts -- are interrupted by stretches of greatly reduced activity that last 10 seconds. There is no significant reactivity to any external stimuli were noted, Hyperventilation was not performed. Intermittent EMG artifacts were seen. IMPRESSION: Significantly abnormal electroencephalogram , Burst suppression is an electroencephalogram (EEG) pattern in which Burst suppression has been observed in deep general anesthesia, in induced hypothermia -- used t Burst suppression is an electroencephalography (EEG) pattern that is characterized by periods of high-voltage electrical activity alternating with periods of no activity in the brain. The pattern is found in patients with inactivated brain state Diffuse brain dysfunction is caused by disorders that affect large areas of the brain, including metabolic abnormalities, as well as anoxic hypoxic brain injury. Usually associated with poor prognosis, clinical correlation suggested
[2016-04-30] MEDS: Sennosides 8.6 MG TABLET PO SCH (19:48)
[2016-05-01] MEDS: Ipratropium/Albuterol Neb 3 ML IH SCH ×6 (00:08→19:53)
[2016-05-01] MEDS: Lacri-Lube 3.5 GM TUBE BOTH EYES SCH ×6 (00:36→20:13)
[2016-05-01] MEDS: MethylPREDNISolone 40 MG/ML VIAL IVP SCH ×3 (00:36→15:02)
[2016-05-01] MEDS: Insulin LISPRO 300 UNITS/3 ML VIAL SQ SCH ×6 (00:37→20:13)
[2016-05-01 04:00] LABS: Hematocrit 26.1 % (35.3-44.9); Hemoglobin 8.3 g/dL (11.5-15.4); Lymphocytes # 0.4 K/mcL (0.6-4.6); Mean Corpuscular HGB Conc 31.8 g/dL (31.6-35.5); Mean Corpuscular Hemoglobin 31.7 pg (28.0-33.3); Mean Corpuscular Volume 99.6 fL (83.0-100.0); Mean Platelet Volume 11.2 fL (9.4-12.4); Platelet Count 223 K/mcL (140-400); Red Blood Count 2.62 M/mcL (3.82-4.97)
[2016-05-01 04:01] LABS: BUN/Creatinine Ratio 29 (6-26); Blood Urea Nitrogen 26 mg/dL (7-20); Calcium 8.5 mg/dL (8.6-10.8); Carbon Dioxide 22 mEq/L (19-29); Chloride 108 mEq/L (98-109); Glucose 216 mg/dL (70-99); Magnesium 1.8 mg/dL (1.6-2.6); Osmolality,Calculated 307 (280-300); Potassium 3.5 mEq/L (3.5-4.5); Sodium 143 mEq/L (136-145); eGFR For African Americans > 60 (> 60); eGFR For Non-African Americans > 60 (> 60)
[2016-05-01 04:42] LABS: Anisocytosis 1+ (Not Present); Basophils # 0.2 K/mcL (0.0-0.2); Macrocytosis Present (Not Present); Microcytosis Present (Not Present); Monocytes # 0.6 K/mcL (0.0-1.3); Neutrophils # 9.2 K/mcL (1.6-8.9); Platelet Estimate Normal (Normal)
[2016-05-01 04:43] LABS: Polychromasia 1+ (Not Present)
[2016-05-01] MEDS: 0.9 % Sodium Chloride 1,000 ML IVC SCH ×3 (05:26→18:04)
[2016-05-01] MEDS: Magnesium Sulfate 2 GM in D5% in Water 100 ML IVPB PRN (05:27)
[2016-05-01] MEDS: Piperacillin/Tazobactam 3.375 GM in D5% in Water (Mini-Bag+) 100 ML IVPB SCH ×3 (05:28→20:10)
[2016-05-01] MEDS: *HR* Enoxaparin 40 MG/0.4 ML SYRINGE SQ SCH (05:30)
[2016-05-01] MEDS: Budesonide/Formoterol 160/4.5 MDI IH SCH ×2 (07:40→19:53)
[2016-05-01] MEDS: Pantoprazole 40 MG VIAL IVP SCH (07:57)
[2016-05-01] MEDS: Chlorhexidine Rinse 15 ML MOUTHWASH MM SCH ×2 (07:57→20:10)
[2016-05-01] MEDS: Sennosides/Docusate Sodium TABLET PO SCH ×2 (09:21→20:09)
--- NOTE | 2016-05-01 10:19 | Neurology Progress Note ---
Date of Encounter: 05/01/16 Time of Encounter: 10:16 Assessment and Plan (1) Anoxic encephalopathy Status: Acute NO change , remain same, EEG burst suppression pattern usually associated with poor prognosis NO seizures, prognosis seem to be poor continue supportive treatment (2) MR (mental retardation) Status: Chronic (3) MR (mental retardation) Status: Acute (4) Cardiac arrest Status: Acute Patient suffered cardiac arrest at snf. Found by staff during rounds, ROSC achieved after 33 minutes of ACLS, 1 mg epi, 1 amp bicarbonate. Brought to [facility] followed by Saima. Reports of copious amount of secretions, appearing to be from tube feeds, found and suctioned at time of arrest. Patient unresponsive at this time, long-term trach and PEG tube in place. Central line placed in left femoral vein Continue fluids at 75 mL an hour Continue blood pressure support to achieve map above 60 and heart rate above 55 with dopamine and norepinephrine Sedated with Precedex and fentanyl Concern for aspiration pneumonia versus VAP, will start Zosyn Wheezing auscultated on exam, will start Solu-Medrol (5) Chronic respiratory failure with hypoxia and hypercapnia Status: Acute Subjective Interval history: pt seen, NO change in neuro status remains same Objective - Constitutional Vitals: Temp Pulse Resp BP Pulse Ox 100.4 F H 81 15 108/57 100 05/01/16 07:30 05/01/16 10:00 05/01/16 10:00 05/01/16 10:00 05/01/16 10:00 - Neurological Exam Mental Status Examination: Present: coma Results - Laboratory Findings CBC and BMP: 05/04/16 04:05 05/04/16 04:05 Abnormal lab findings: Abnormal lab results RBC 2.62 M/mcL (3.82-4.97) L 05/01/16 03:30 Hgb 8.3 g/dL (11.5-15.4) L 05/01/16 03:30 Hct 26.1 % (35.3-44.9) L 05/01/16 03:30 RDW 16.0 % (11.5-14.5) H 05/01/16 03:30 Band Neutrophils % 10.0 % (0-4) H 05/01/16 03:30 Neutrophils # 9.2 K/mcL (1.6-8.9) H 05/01/16 03:30 Lymphocytes # 0.4 K/mcL (0.6-4.6) L 05/01/16 03:30 Polychromasia 1+ (Not Present) A 05/01/16 03:30 Anisocytosis 1+ (Not Present) A 05/01/16 03:30 Microcytosis Present (Not Present) A 05/01/16 03:30 Macrocytosis Present (Not Present) A 05/01/16 03:30 PT 13.9 Seconds (9.4-12.1) H 04/30/16 02:25 ABG pH 7.56 pH Units (7.32-7.45) H 04/30/16 07:00 ABG pCO2 32 mmHg (35-45) L 04/30/16 07:00 ABG pO2 117 mmHg (85-104) H 04/30/16 07:00 ABG HCO3 28.7 mEQ/L (21-27) H 04/30/16 07:00 ABG Total CO2 29.7 mEq/L (20-26) H 04/30/16 07:00 ABG O2 Saturation 99 % (95-98) H 04/30/16 07:00 ABG Base Excess 6.7 mEq/L (-2.0 to 3.0) H 04/30/16 07:00 BUN 26 mg/dL (7-20) H 05/01/16 03:30 BUN/Creatinine Ratio 29 (6-26) H 05/01/16 03:30 Glucose 216 mg/dL (70-99) H 05/01/16 03:30 POC Glucose 220 (58-89) H 05/01/16 07:19 Calculated Osmolality 307 (280-300) H 05/01/16 03:30 Lactic Acid 2.3 mmol/L (0.5-2.2) H 04/29/16 20:26 Calcium 8.5 mg/dL (8.6-10.8) L 05/01/16 03:30 AST 285 Units/L (5-34) H 04/30/16 02:25 ALT 230 Units/L (0-55) H 04/30/16 02:25 Albumin 2.7 g/dL (3.5-5.0) L 04/30/16 02:25 Globulin 4.0 g/dL (2.4-3.5) H 04/30/16 02:25 Albumin/Globulin Ratio 0.7 (1.1-2.2) L 04/30/16 02:25 Consult Discharge Plan - Plan Referrals: NO,PCP [Primary Care Provider] -
--- NOTE | 2016-05-01 10:25 | Pulmonology Progress Note ---
<Keagan Marin M - Last Filed: 05/01/16 10:29> Objective PUL Vital signs: Last Vital Signs Temp 100.4 F H 05/01/16 07:30 Pulse 81 05/01/16 10:00 Resp 15 05/01/16 10:00 BP 108/57 05/01/16 10:00 Pulse Ox 100 05/01/16 10:00 Ventilator Settings Ventilator Settings: Ventilator Settings, Last 8 Hours Ventilator Mode VC+ Ventilator Mode VC+ Ventilator Mode VC+ Ventilator Mode VC+ Ventilator Mode VC+ Ventilator Mode VC+ Ventilator Mode VC+ Ventilator Mode VC+ Ventilator Mode VC+ Ventilator Mode VC+ Ventilator Mode VC+ Ventilator Tidal Volume 350 Setting Ventilator Tidal Volume 350 Setting Ventilator Tidal Volume 350 Setting Ventilator Tidal Volume 350 Setting Ventilator Tidal Volume 350 Setting Ventilator Tidal Volume 350 Setting Ventilator Tidal Volume 350 Setting Ventilator Tidal Volume 350 Setting Ventilator Tidal Volume 350 Setting Ventilator Tidal Volume 350 Setting Ventilator Tidal Volume 350 Setting Ventilator Respiratory Rate 10 Setting Ventilator Respiratory Rate 10 Setting Ventilator Respiratory Rate 10 Setting Ventilator Respiratory Rate 10 Setting Ventilator Respiratory Rate 10 Setting Ventilator Respiratory Rate 10 Setting Ventilator Respiratory Rate 10 Setting Ventilator Respiratory Rate 10 Setting Ventilator Respiratory Rate 10 Setting Ventilator Respiratory Rate 10 Setting Ventilator Respiratory Rate 10 Setting Actual Respiratory Rate 15 Actual Respiratory Rate 17 Actual Respiratory Rate 16 Actual Respiratory Rate 14 Actual Respiratory Rate 19 Actual Respiratory Rate 19 Actual Respiratory Rate 19 Actual Respiratory Rate 19 Actual Respiratory Rate 18 Actual Respiratory Rate 18 Actual Respiratory Rate 18 Positive End Expiratory 5 Pressure Positive End Expiratory 5 Pressure Positive End Expiratory 5 Pressure Positive End Expiratory 5 Pressure Positive End Expiratory 5 Pressure Positive End Expiratory 5 Pressure Positive End Expiratory 5 Pressure Positive End Expiratory 5 Pressure Positive End Expiratory 5 Pressure Positive End Expiratory 5 Pressure Positive End Expiratory 5 Pressure Peak Inspiratory Airway 23 Pressure Peak Inspiratory Airway 23 Pressure Peak Inspiratory Airway 21 Pressure Peak Inspiratory Airway 25 Pressure Peak Inspiratory Airway 23 Pressure Peak Inspiratory Airway 24 Pressure Peak Inspiratory Airway 24 Pressure Peak Inspiratory Airway 24 Pressure Peak Inspiratory Airway 24 Pressure Peak Inspiratory Airway 24 Pressure Peak Inspiratory Airway 24 Pressure Results - Laboratory Findings CBC and BMP: 05/01/16 03:30 05/01/16 03:30 ABG ABG pH 7.56 pH Units (7.32-7.45) H 04/30/16 07:00 ABG pCO2 32 mmHg (35-45) L 04/30/16 07:00 ABG pO2 117 mmHg (85-104) H 04/30/16 07:00 ABG O2 Saturation 99 % (95-98) H 04/30/16 07:00 PT/INR, D-dimer PT 13.9 Seconds (9.4-12.1) H 04/30/16 02:25 Abnormal lab findings: Abnormal lab results RBC 2.62 M/mcL (3.82-4.97) L 05/01/16 03:30 Hgb 8.3 g/dL (11.5-15.4) L 05/01/16 03:30 Hct 26.1 % (35.3-44.9) L 05/01/16 03:30 RDW 16.0 % (11.5-14.5) H 05/01/16 03:30 Band Neutrophils % 10.0 % (0-4) H 05/01/16 03:30 Neutrophils # 9.2 K/mcL (1.6-8.9) H 05/01/16 03:30 Lymphocytes # 0.4 K/mcL (0.6-4.6) L 05/01/16 03:30 Polychromasia 1+ (Not Present) A 05/01/16 03:30 Anisocytosis 1+ (Not Present) A 05/01/16 03:30 Microcytosis Present (Not Present) A 05/01/16 03:30 Macrocytosis Present (Not Present) A 05/01/16 03:30 PT 13.9 Seconds (9.4-12.1) H 04/30/16 02:25 ABG pH 7.56 pH Units (7.32-7.45) H 04/30/16 07:00 ABG pCO2 32 mmHg (35-45) L 04/30/16 07:00 ABG pO2 117 mmHg (85-104) H 04/30/16 07:00 ABG HCO3 28.7 mEQ/L (21-27) H 04/30/16 07:00 ABG Total CO2 29.7 mEq/L (20-26) H 04/30/16 07:00 ABG O2 Saturation 99 % (95-98) H 04/30/16 07:00 ABG Base Excess 6.7 mEq/L (-2.0 to 3.0) H 04/30/16 07:00 BUN 26 mg/dL (7-20) H 05/01/16 03:30 BUN/Creatinine Ratio 29 (6-26) H 05/01/16 03:30 Glucose 216 mg/dL (70-99) H 05/01/16 03:30 POC Glucose 220 (58-89) H 05/01/16 07:19 Calculated Osmolality 307 (280-300) H 05/01/16 03:30 Lactic Acid 2.3 mmol/L (0.5-2.2) H 04/29/16 20:26 Calcium 8.5 mg/dL (8.6-10.8) L 05/01/16 03:30 AST 285 Units/L (5-34) H 04/30/16 02:25 ALT 230 Units/L (0-55) H 04/30/16 02:25 Albumin 2.7 g/dL (3.5-5.0) L 04/30/16 02:25 Globulin 4.0 g/dL (2.4-3.5) H 04/30/16 02:25 Albumin/Globulin Ratio 0.7 (1.1-2.2) L 04/30/16 02:25 - Clinical Findings Intake & Output: Intake & Output 04/30/16 05/01/16 05/01/16 23:59 07:59 15:59 Intake Total 360 / 360 1304 / 1304 451 / 451 Output Total 250 / 250 500 / 500 Balance 110 / 110 804 / 804 451 / 451 Consult Discharge Plan - Plan Referrals: NO,PCP [Primary Care Provider] - - Attending Attestation I examined this patient and my medical decision-making was reviewed with the TOMOGRAPHY TECHNOLOGIST/PA/Advanced Practice Nurse/Resident Physician. I agree with the documented findings, disposition and treatment plan as described except to the extent set forth below. Patient seen and examined. Labs, radiology, chart personally reviewed. Agree with resident's history and physical, assessment, plan with following comments: PMO MANAGER: Patient does not follows commands, poor prognosis I suspect anoxic brain injury Pulmonary: Acceptable oxygenation and ventilation. Patient then dependent continue vent support Cardiovascular: stable GI: Nutrition per dietary and GI prophylaxis per routine. Laxative Heme: DVT prophylaxis per routine ID: Continue antibiotics and plan to de-escalation Renal; urine out put and renal funtion reviewed Endorcine: blood glucose is monitored Lines: all lines checked and no evidence of infections Skin: skin care to prevent pressure ulcers per nursing routine care Poor prognosis and palliative care follow-up. <Jhonathan Ríos - Last Filed: 05/01/16 11:04> Date of Encounter: 05/01/16 Time of Encounter: 10:25 Assessment and Plan (1) Cardiac arrest Current Visit: Yes Status: Acute Patient suffered cardiac arrest at long term. Found by staff during rounds, ROSC achieved after 33 minutes of ACLS, 1 mg epi, 1 amp bicarbonate. Brought to [facility] followed by Saima. Reports of copious amount of secretions, appearing to be from tube feeds, found and suctioned at time of arrest. Neurology saw patient yesterday, did EEG, they suspect she does have anoxic brain injury. Will reevaluate and 24 to 48 hours to see if there any neurological changes. Patient unresponsive at this time, long-term trach and PEG tube in place. Central line placed in left femoral vein Continue fluids at 75 mL an hour Continue blood pressure support to achieve map above 60 and heart rate above 55 with dopamine and norepinephrine as needed Sedated with Precedex and fentanyl Concern for aspiration pneumonia versus VAP, Zosyn day 2 Wheezing auscultated on exam, will start Solu-Medrol subq insulin sliding scale electrolyte protocol instituted GI prophylaxis: Protonix DVT Prophylaxis: Lovenox Neuro/sedation: Chronic dementia, MRDD, little responsiveness at baseline, sedated with Precedex and fentanyl, unsure of anoxic brain injury versus baseline mental status Cardiovascular: Post PEA versus asystole arrest, hypotension and bradycardia present, will start norepinephrine and dopamine titrated to map greater than 60 Pulmonary: Concern for aspiration pneumonia, COPD, 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, mechanically ventilated on tracheostomy, DuoNeb, Symbicort, Solu-Medrol Renal: No concerns at this time GI: Nothing by mouth for now Fluids/electrolytes: Normal saline at 75 mL an hour, mild hyperkalemia, elevated lactic acid, will trend Heme: Stable anemia, no leukocytosis ID: Likely aspiration, chronic tracheostomy, UA concerning (though contaminated) Lines: Left femoral, peripherals Disposition: Critical CODE STATUS: Full Goals of care discussion: GAYLE [place] - court-appointed guardian Lengthy discussion regarding goals of care/CODE STATUS, guardian unable to change CODE STATUS without court order. Guardian states the rail operations controller (Dev Matias) we will change it if there is physician documentation regarding her overall prognosis/quality of life. Otherwise guardian is open for CODE STATUS change and possible hospice. We will consult palliative care. (2) Pneumonia Current Visit: No Status: Suspected Qualifiers: Pneumonia type: aspiration pneumonia Aspiration pneumonia type: due to vomit Laterality: unspecified laterality Lung location: unspecified part of lung Qualified Code(s): J69.0 - Pneumonitis due to inhalation of food and vomit (3) Chronic respiratory failure Current Visit: Yes Status: Chronic Qualifiers: Respiratory failure complication: unspecified whether with hypoxia or hypercapnia Qualified Code(s): J96.10 - Chronic respiratory failure, unspecified whether with hypoxia or hypercapnia (4) Dementia Current Visit: No Status: Chronic Qualifiers: Dementia type: unspecified type Dementia behavioral disturbance: without behavioral disturbance Qualified Code(s): F03.90 - Unspecified dementia without behavioral disturbance (5) Diabetes Current Visit: No Status: Chronic Qualifiers: Diabetes mellitus type: type 2 Diabetes mellitus complication status: with unspecified complications Diabetes mellitus keno terminal operator insulin use: unspecified fci insulin use status Qualified Code(s): E11.8 - Type 2 diabetes mellitus with unspecified complications (6) DVT prophylaxis Current Visit: No Status: Acute Subjective Principal diagnosis: Cardiac arrest Interval history: Patient seen and examined. Unresponsive to commands. Lois saw patient and suspects anoxic brain injury. Recommends evaluation and 24 to 48 hours. She remains a full code. Palliative on board appreciate the recommendations. POA requesting documentation from physician about prognosis to be given to rail operations controller for possible code status change. Objective PUL Vital signs: Last Vital Signs Temp 100.4 F H 05/01/16 07:30 Pulse 81 05/01/16 10:00 Resp 15 05/01/16 10:00 BP 108/57 05/01/16 10:00 Pulse Ox 100 05/01/16 10:00 General appearance: comatose Eyes: nonicteric, injected ENT: oropharynx moist Neck: other (Tracheostomy) Effort: other (Intimated) Auscultation: bilateral: rhonchi Cardiovascular: regular rate and rhythm, murmur noted Gastrointestinal: normoactive bowel sounds, other (peg) Extremities: no edema, no clubbing, cool unable to assess due to mental status Ventilator Settings Ventilator Settings: Ventilator Settings, Last 8 Hours Ventilator Mode VC+ Ventilator Mode VC+ Ventilator Mode VC+ Ventilator Mode VC+ Ventilator Mode VC+ Ventilator Mode VC+ Ventilator Mode VC+ Ventilator Mode VC+ Ventilator Mode VC+ Ventilator Mode VC+ Ventilator Mode VC+ Ventilator Tidal Volume 350 Setting Ventilator Tidal Volume 350 Setting Ventilator Tidal Volume 350 Setting Ventilator Tidal Volume 350 Setting Ventilator Tidal Volume 350 Setting Ventilator Tidal Volume 350 Setting Ventilator Tidal Volume 350 Setting Ventilator Tidal Volume 350 Setting Ventilator Tidal Volume 350 Setting Ventilator Tidal Volume 350 Setting Ventilator Tidal Volume 350 Setting Ventilator Respiratory Rate 10 Setting Ventilator Respiratory Rate 10 Setting Ventilator Respiratory Rate 10 Setting Ventilator Respiratory Rate 10 Setting Ventilator Respiratory Rate 10 Setting Ventilator Respiratory Rate 10 Setting Ventilator Respiratory Rate 10 Setting Ventilator Respiratory Rate 10 Setting Ventilator Respiratory Rate 10 Setting Ventilator Respiratory Rate 10 Setting Ventilator Respiratory Rate 10 Setting Actual Respiratory Rate 15 Actual Respiratory Rate 17 Actual Respiratory Rate 16 Actual Respiratory Rate 14 Actual Respiratory Rate 19 Actual Respiratory Rate 19 Actual Respiratory Rate 19 Actual Respiratory Rate 19 Actual Respiratory Rate 18 Actual Respiratory Rate 18 Actual Respiratory Rate 18 Positive End Expiratory 5 Pressure Positive End Expiratory 5 Pressure Positive End Expiratory 5 Pressure Positive End Expiratory 5 Pressure Positive End Expiratory 5 Pressure Positive End Expiratory 5 Pressure Positive End Expiratory 5 Pressure Positive End Expiratory 5 Pressure Positive End Expiratory 5 Pressure Positive End Expiratory 5 Pressure Positive End Expiratory 5 Pressure Peak Inspiratory Airway 23 Pressure Peak Inspiratory Airway 23 Pressure Peak Inspiratory Airway 21 Pressure Peak Inspiratory Airway 25 Pressure Peak Inspiratory Airway 23 Pressure Peak Inspiratory Airway 24 Pressure Peak Inspiratory Airway 24 Pressure Peak Inspiratory Airway 24 Pressure Peak Inspiratory Airway 24 Pressure Peak Inspiratory Airway 24 Pressure Peak Inspiratory Airway 24 Pressure Results - Laboratory Findings CBC and BMP: 05/01/16 03:30 05/01/16 03:30 ABG ABG pH 7.56 pH Units (7.32-7.45) H 04/30/16 07:00 ABG pCO2 32 mmHg (35-45) L 04/30/16 07:00 ABG pO2 117 mmHg (85-104) H 04/30/16 07:00 ABG O2 Saturation 99 % (95-98) H 04/30/16 07:00 PT/INR, D-dimer PT 13.9 Seconds (9.4-12.1) H 04/30/16 02:25 Abnormal lab findings: Abnormal lab results RBC 2.62 M/mcL (3.82-4.97) L 05/01/16 03:30 Hgb 8.3 g/dL (11.5-15.4) L 05/01/16 03:30 Hct 26.1 % (35.3-44.9) L 05/01/16 03:30 RDW 16.0 % (11.5-14.5) H 05/01/16 03:30 Band Neutrophils % 10.0 % (0-4) H 05/01/16 03:30 Neutrophils # 9.2 K/mcL (1.6-8.9) H 05/01/16 03:30 Lymphocytes # 0.4 K/mcL (0.6-4.6) L 05/01/16 03:30 Polychromasia 1+ (Not Present) A 05/01/16 03:30 Anisocytosis 1+ (Not Present) A 05/01/16 03:30 Microcytosis Present (Not Present) A 05/01/16 03:30 Macrocytosis Present (Not Present) A 05/01/16 03:30 PT 13.9 Seconds (9.4-12.1) H 04/30/16 02:25 ABG pH 7.56 pH Units (7.32-7.45) H 04/30/16 07:00 ABG pCO2 32 mmHg (35-45) L 04/30/16 07:00 ABG pO2 117 mmHg (85-104) H 04/30/16 07:00 ABG HCO3 28.7 mEQ/L (21-27) H 04/30/16 07:00 ABG Total CO2 29.7 mEq/L (20-26) H 04/30/16 07:00 ABG O2 Saturation 99 % (95-98) H 04/30/16 07:00 ABG Base Excess 6.7 mEq/L (-2.0 to 3.0) H 04/30/16 07:00 BUN 26 mg/dL (7-20) H 05/01/16 03:30 BUN/Creatinine Ratio 29 (6-26) H 05/01/16 03:30 Glucose 216 mg/dL (70-99) H 05/01/16 03:30 POC Glucose 220 (58-89) H 05/01/16 07:19 Calculated Osmolality 307 (280-300) H 05/01/16 03:30 Lactic Acid 2.3 mmol/L (0.5-2.2) H 04/29/16 20:26 Calcium 8.5 mg/dL (8.6-10.8) L 05/01/16 03:30 AST 285 Units/L (5-34) H 04/30/16 02:25 ALT 230 Units/L (0-55) H 04/30/16 02:25 Albumin 2.7 g/dL (3.5-5.0) L 04/30/16 02:25 Globulin 4.0 g/dL (2.4-3.5) H 04/30/16 02:25 Albumin/Globulin Ratio 0.7 (1.1-2.2) L 04/30/16 02:25 - Clinical Findings Intake & Output: Intake & Output 04/30/16 05/01/16 05/01/16 23:59 07:59 15:59 Intake Total 360 / 360 1304 / 1304 451 / 451 Output Total 250 / 250 500 / 500 Balance 110 / 110 804 / 804 451 / 451
[2016-05-01 12:20] LABS: Potassium 4.3 mEq/L (3.5-4.5)
[2016-05-01] MEDS: Norepinephrine 4 MG in D5% in Water 250 ML IVC SCH (15:02)
[2016-05-01] MEDS: FentaNYL (PF) 1,000 MCG in 0.9 % Sodium Chloride 80 ML IVC SCH (15:42)
[2016-05-01] MEDS: Dexmedetomidine HCl 400 MCG/100 ML MLS IVC SCH (15:43)
[2016-05-02] MEDS: Insulin LISPRO 300 UNITS/3 ML VIAL SQ SCH ×7 (00:08→23:16)
[2016-05-02] MEDS: Lacri-Lube 3.5 GM TUBE BOTH EYES SCH ×7 (00:09→23:16)
[2016-05-02] MEDS: MethylPREDNISolone 40 MG/ML VIAL IVP SCH ×4 (00:09→23:16)
[2016-05-02] MEDS: Ipratropium/Albuterol Neb 3 ML IH SCH ×7 (00:32→23:19)
[2016-05-02 04:01] LABS: Basophils % 0.1 %; Hematocrit 26.7 % (35.3-44.9); Hemoglobin 8.2 g/dL (11.5-15.4); Immature Granulocytes % 0.3 % (0-4); Lymphocytes # 0.6 K/mcL (0.6-4.6); Lymphocytes % 4.7 %; Mean Corpuscular HGB Conc 30.7 g/dL (31.6-35.5); Mean Corpuscular Hemoglobin 31.2 pg (28.0-33.3); Mean Corpuscular Volume 101.5 fL (83.0-100.0); Mean Platelet Volume 11.1 fL (9.4-12.4); Monocytes # 1.2 K/mcL (0.0-1.3); Monocytes % 9.7 %; Nucleated Red Blood Cells 0.2 /100 WBC (0); Platelet Count 224 K/mcL (140-400); Red Blood Count 2.63 M/mcL (3.82-4.97); Red Cell Distribution Width 15.8 % (11.5-14.5); Segmented Neutrophils % 85.2 %
[2016-05-02 04:02] LABS: Neutrophils # 10.7 K/mcL (1.6-8.9)
[2016-05-02] MEDS: Piperacillin/Tazobactam 3.375 GM in D5% in Water (Mini-Bag+) 100 ML IVPB SCH ×3 (04:03→19:59)
[2016-05-02 04:47] LABS: Platelet Estimate Normal (Normal)
[2016-05-02 05:12] LABS: BUN/Creatinine Ratio 35 (6-26); Blood Urea Nitrogen 27 mg/dL (7-20); Calcium 8.6 mg/dL (8.6-10.8); Carbon Dioxide 24 mEq/L (19-29); Chloride 113 mEq/L (98-109); Glucose 154 mg/dL (70-99); Osmolality,Calculated 310 (280-300); Sodium 146 mEq/L (136-145); eGFR For African Americans > 60 (> 60); eGFR For Non-African Americans > 60 (> 60)
[2016-05-02] MEDS: *HR* Enoxaparin 40 MG/0.4 ML SYRINGE SQ SCH (05:21)
[2016-05-02 05:57] LABS: Magnesium 1.8 mg/dL (1.6-2.6); Phosphorous 2.3 mg/dL (2.3-4.7)
[2016-05-02] MEDS: 0.9 % Sodium Chloride 1,000 ML IVC SCH ×3 (07:39→21:14)
[2016-05-02] MEDS: Budesonide/Formoterol 160/4.5 MDI IH SCH ×2 (07:40→20:08)
--- NOTE | 2016-05-02 10:06 | Pulmonology Progress Note ---
<Keagan Marin M - Last Filed: 05/02/16 11:44> Objective PUL Vital signs: Last Vital Signs Temp 100.0 F H 05/02/16 07:44 Pulse 84 05/02/16 11:15 Resp 26 05/02/16 11:29 BP 122/64 05/02/16 11:29 Pulse Ox 96 05/02/16 11:29 Ventilator Settings Ventilator Settings: Ventilator Settings, Last 8 Hours Ventilator Mode VC+ Ventilator Mode VC+ Ventilator Mode VC+ Ventilator Mode VC+ Ventilator Mode VC+ Ventilator Mode VC+ Ventilator Mode VC+ Ventilator Mode VC+ Ventilator Mode VC+ Ventilator Tidal Volume 350 Setting Ventilator Tidal Volume 350 Setting Ventilator Tidal Volume 350 Setting Ventilator Tidal Volume 350 Setting Ventilator Tidal Volume 350 Setting Ventilator Tidal Volume 350 Setting Ventilator Tidal Volume 350 Setting Ventilator Tidal Volume 350 Setting Ventilator Tidal Volume 350 Setting Ventilator Respiratory Rate 10 Setting Ventilator Respiratory Rate 10 Setting Ventilator Respiratory Rate 10 Setting Ventilator Respiratory Rate 10 Setting Ventilator Respiratory Rate 10 Setting Ventilator Respiratory Rate 10 Setting Ventilator Respiratory Rate 10 Setting Ventilator Respiratory Rate 10 Setting Ventilator Respiratory Rate 10 Setting Actual Respiratory Rate 26 Actual Respiratory Rate 21 Actual Respiratory Rate 21 Actual Respiratory Rate 16 Actual Respiratory Rate 21 Actual Respiratory Rate 23 Actual Respiratory Rate 24 Positive End Expiratory 5 Pressure Positive End Expiratory 5 Pressure Positive End Expiratory 5 Pressure Positive End Expiratory 5 Pressure Positive End Expiratory 5 Pressure Positive End Expiratory 5 Pressure Positive End Expiratory 5 Pressure Positive End Expiratory 5 Pressure Positive End Expiratory 5 Pressure Peak Inspiratory Airway 29 Pressure Peak Inspiratory Airway 24 Pressure Peak Inspiratory Airway 23 Pressure Peak Inspiratory Airway 24 Pressure Peak Inspiratory Airway 24 Pressure Peak Inspiratory Airway 24 Pressure Peak Inspiratory Airway 25 Pressure Peak Inspiratory Airway 23 Pressure Peak Inspiratory Airway 24 Pressure Results - Laboratory Findings CBC and BMP: 05/02/16 03:27 05/02/16 04:50 ABG ABG pH 7.56 pH Units (7.32-7.45) H 04/30/16 07:00 ABG pCO2 32 mmHg (35-45) L 04/30/16 07:00 ABG pO2 117 mmHg (85-104) H 04/30/16 07:00 ABG O2 Saturation 99 % (95-98) H 04/30/16 07:00 PT/INR, D-dimer PT 13.9 Seconds (9.4-12.1) H 04/30/16 02:25 Abnormal lab findings: Abnormal lab results WBC 12.6 K/mcL (4.3-11.1) H 05/02/16 03:27 RBC 2.63 M/mcL (3.82-4.97) L 05/02/16 03:27 Hgb 8.2 g/dL (11.5-15.4) L 05/02/16 03:27 Hct 26.7 % (35.3-44.9) L 05/02/16 03:27 MCV 101.5 fL (83.0-100.0) H 05/02/16 03:27 MCHC 30.7 g/dL (31.6-35.5) L 05/02/16 03:27 RDW 15.8 % (11.5-14.5) H 05/02/16 03:27 Band Neutrophils % 10.0 % (0-4) H 05/01/16 03:30 Neutrophils # 10.7 K/mcL (1.6-8.9) H 05/02/16 03:27 Nucleated RBCs/100 WBC 0.2 /100 WBC (0) H 05/02/16 03:27 Polychromasia 1+ (Not Present) A 05/01/16 03:30 Anisocytosis 1+ (Not Present) A 05/01/16 03:30 Microcytosis Present (Not Present) A 05/01/16 03:30 Macrocytosis Present (Not Present) A 05/01/16 03:30 PT 13.9 Seconds (9.4-12.1) H 04/30/16 02:25 ABG pH 7.56 pH Units (7.32-7.45) H 04/30/16 07:00 ABG pCO2 32 mmHg (35-45) L 04/30/16 07:00 ABG pO2 117 mmHg (85-104) H 04/30/16 07:00 ABG HCO3 28.7 mEQ/L (21-27) H 04/30/16 07:00 ABG Total CO2 29.7 mEq/L (20-26) H 04/30/16 07:00 ABG O2 Saturation 99 % (95-98) H 04/30/16 07:00 ABG Base Excess 6.7 mEq/L (-2.0 to 3.0) H 04/30/16 07:00 Sodium 146 mEq/L (136-145) H 05/02/16 04:50 Chloride 113 mEq/L (98-109) H 05/02/16 04:50 BUN 27 mg/dL (7-20) H 05/02/16 04:50 BUN/Creatinine Ratio 35 (6-26) H 05/02/16 04:50 Glucose 154 mg/dL (70-99) H 05/02/16 04:50 POC Glucose 125 (58-89) H 05/02/16 11:01 Calculated Osmolality 310 (280-300) H 05/02/16 04:50 Lactic Acid 2.3 mmol/L (0.5-2.2) H 04/29/16 20:26 AST 285 Units/L (5-34) H 04/30/16 02:25 ALT 230 Units/L (0-55) H 04/30/16 02:25 Albumin 2.7 g/dL (3.5-5.0) L 04/30/16 02:25 Globulin 4.0 g/dL (2.4-3.5) H 04/30/16 02:25 Albumin/Globulin Ratio 0.7 (1.1-2.2) L 04/30/16 02:25 - Microbiology Findings Microbiology Findings: Microbiology, Last 48 Hours 05/01/16 13:25 Sputum Culture - Preliminary Sputum Gram Negative Mahendra Gram Negative Mahendra#2 - Clinical Findings Intake & Output: Intake & Output 05/01/16 05/02/16 05/02/16 23:59 07:59 15:59 Intake Total 791 / 791 1100 / 1100 150 / 150 Output Total 200 / 200 325 / 325 Balance 591 / 591 775 / 775 150 / 150 Weight 43.9 kg Consult Discharge Plan - Plan Referrals: NO,PCP [Primary Care Provider] - - Attending Attestation I examined this patient and my medical decision-making was reviewed with the PROGRAM DEVELOPMENT SPECIALIST/PA/Advanced Practice Nurse/Resident Physician. I agree with the documented findings, disposition and treatment plan as described except to the extent set forth below. Patient seen and examined. Labs, radiology, chart personally reviewed. Agree with resident's history and physical, assessment, plan with following comments. 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 Will try to low dose sedation and if she still have vent dysynchrony, then will have sedation as a drip. Cardiovascular: relatively stable GI: Nutrition per dietary and GI prophylaxis per routine Heme: DVT prophylaxis per routine ID: Continue antibiotics and plan to de-escalation Renal; urine out put and renal funtion reviewed Endorcine: blood glucose is monitored Lines: all lines checked and no evidence of infections Skin: skin care to prevent pressure ulcers per nursing routine care Prognosis is poor and palliative care follow up and neurologist follow-up for further recommendations to be able to give a better idea to the guardian/power of home aide. I personally feel her CODE STATUS needs to be changed due to extreme poor prognosis I spent 35 min of Critical Care time with this patient. It involved decision making of high complexity to assess, manipulate, and support vital organ system failure and/or to prevent further life threatening deterioration of the patient' s condition. The time involved in the performance of separately reportable procedures was not counted toward critical care time. <Miguel Garsia - Last Filed: 05/02/16 14:22> Date of Encounter: 05/02/16 Time of Encounter: 09:50 Assessment and Plan (1) Cardiac arrest Current Visit: Yes Status: Acute [facility] Found by staff during rounds, ROSC achieved after 33 minutes of ACLS, 1 mg epi, 1 amp bicarbonate. Brought to [place] followed by Saima. Reports of copious amount of secretions, appearing to be from tube feeds, found and suctioned at time of arrest. Neurology consulted, did EEG, suspecting she hasanoxic brain injury. Will reevaluate and 24 to 48 hours to see if there any neurological changes. Patient unresponsive at this time, long-term trach and PEG tube in place. Central line placed in left femoral vein Continue fluids at 75 mL an hour Continue blood pressure support to achieve map above 60 and heart rate above 55 with dopamine and norepinephrine as needed Sedated with Precedex and fentanyl Concern for aspiration pneumonia versus VAP, Zosyn day 3 continue Solu-Medrol PRN versed initiated for agitation subq insulin sliding scale electrolyte protocol instituted GI prophylaxis: Protonix DVT Prophylaxis: Lovenox Neuro/sedation: Chronic dementia, MRDD, little responsiveness at baseline, sedated with Precedex and fentanyl, unsure of anoxic brain injury versus baseline mental status Cardiovascular: Post PEA versus asystole arrest, hypotension and bradycardia present; norepinephrine and dopamine titrated to map greater than 60 Pulmonary: Concern for aspiration pneumonia, COPD, 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 Guardian states the office professionals (Dev Matias) will change it if there is physician documentation regarding her overall prognosis/quality of life. Otherwise guardian is open for CODE STATUS change and possible hospice. We will consult palliative care. (2) Chronic respiratory failure Current Visit: Yes Status: Chronic Qualifiers: Respiratory failure complication: unspecified whether with hypoxia or hypercapnia Qualified Code(s): J96.10 - Chronic respiratory failure, unspecified whether with hypoxia or hypercapnia (3) Dementia Current Visit: No Status: Chronic Qualifiers: Dementia type: unspecified type Dementia behavioral disturbance: without behavioral disturbance Qualified Code(s): F03.90 - Unspecified dementia without behavioral disturbance (4) Diabetes Current Visit: No Status: Chronic Qualifiers: Diabetes mellitus type: type 2 Diabetes mellitus complication status: with unspecified complications Diabetes mellitus terminal superintendent insulin use: unspecified terminal superintendent insulin use status Qualified Code(s): E11.8 - Type 2 diabetes mellitus with unspecified complications (5) Pneumonia Current Visit: No Status: Suspected Qualifiers: Pneumonia type: aspiration pneumonia Aspiration pneumonia type: due to vomit Laterality: unspecified laterality Lung location: unspecified part of lung Qualified Code(s): J69.0 - Pneumonitis due to inhalation of food and vomit (6) DVT prophylaxis Current Visit: No Status: Acute Subjective Principal diagnosis: Cardiac arrest Interval history: Patient seen and examined at bedside. Unresponsive to commands. Patient remains full code, neurology following. Palliative onboard. POA requesting documentation of prognosis to give for code status change via office professionals/court system. Objective PUL Vital signs: Last Vital Signs Temp 100.0 F H 05/02/16 07:44 Pulse 86 05/02/16 06:00 Resp 24 05/02/16 06:24 BP 120/63 05/02/16 06:24 Pulse Ox 100 05/02/16 06:24 General appearance: no acute distress, comatose, agitated Eyes: nonicteric ENT: oropharynx moist Neck: other (Tracheostomy) Effort: normal, other (On mechanical ventilation) Gastrointestinal: other (PEG in place) Integumentary: normal Extremities: no cyanosis, no edema, no clubbing unable to assess due to mental status Ventilator Settings Ventilator Settings: Ventilator Settings, Last 8 Hours Ventilator Mode VC+ Ventilator Mode VC+ Ventilator Mode VC+ Ventilator Mode VC+ Ventilator Mode VC+ Ventilator Mode VC+ Ventilator Mode VC+ Ventilator Tidal Volume 350 Setting Ventilator Tidal Volume 350 Setting Ventilator Tidal Volume 350 Setting Ventilator Tidal Volume 350 Setting Ventilator Tidal Volume 350 Setting Ventilator Tidal Volume 350 Setting Ventilator Tidal Volume 350 Setting Ventilator Respiratory Rate 10 Setting Ventilator Respiratory Rate 10 Setting Ventilator Respiratory Rate 10 Setting Ventilator Respiratory Rate 10 Setting Ventilator Respiratory Rate 10 Setting Ventilator Respiratory Rate 10 Setting Ventilator Respiratory Rate 10 Setting Actual Respiratory Rate 21 Actual Respiratory Rate 16 Actual Respiratory Rate 21 Actual Respiratory Rate 23 Actual Respiratory Rate 24 Actual Respiratory Rate 23 Actual Respiratory Rate 16 Positive End Expiratory 5 Pressure Positive End Expiratory 5 Pressure Positive End Expiratory 5 Pressure Positive End Expiratory 5 Pressure Positive End Expiratory 5 Pressure Positive End Expiratory 5 Pressure Positive End Expiratory 5 Pressure Peak Inspiratory Airway 24 Pressure Peak Inspiratory Airway 24 Pressure Peak Inspiratory Airway 25 Pressure Peak Inspiratory Airway 23 Pressure Peak Inspiratory Airway 24 Pressure Peak Inspiratory Airway 25 Pressure Peak Inspiratory Airway 23 Pressure Results - Laboratory Findings CBC and BMP: 05/02/16 03:27 05/02/16 04:50 ABG ABG pH 7.56 pH Units (7.32-7.45) H 04/30/16 07:00 ABG pCO2 32 mmHg (35-45) L 04/30/16 07:00 ABG pO2 117 mmHg (85-104) H 04/30/16 07:00 ABG O2 Saturation 99 % (95-98) H 04/30/16 07:00 PT/INR, D-dimer PT 13.9 Seconds (9.4-12.1) H 04/30/16 02:25 Abnormal lab findings: Abnormal lab results WBC 12.6 K/mcL (4.3-11.1) H 05/02/16 03:27 RBC 2.63 M/mcL (3.82-4.97) L 05/02/16 03:27 Hgb 8.2 g/dL (11.5-15.4) L 05/02/16 03:27 Hct 26.7 % (35.3-44.9) L 05/02/16 03:27 MCV 101.5 fL (83.0-100.0) H 05/02/16 03:27 MCHC 30.7 g/dL (31.6-35.5) L 05/02/16 03:27 RDW 15.8 % (11.5-14.5) H 05/02/16 03:27 Band Neutrophils % 10.0 % (0-4) H 05/01/16 03:30 Neutrophils # 10.7 K/mcL (1.6-8.9) H 05/02/16 03:27 Nucleated RBCs/100 WBC 0.2 /100 WBC (0) H 05/02/16 03:27 Polychromasia 1+ (Not Present) A 05/01/16 03:30 Anisocytosis 1+ (Not Present) A 05/01/16 03:30 Microcytosis Present (Not Present) A 05/01/16 03:30 Macrocytosis Present (Not Present) A 05/01/16 03:30 PT 13.9 Seconds (9.4-12.1) H 04/30/16 02:25 ABG pH 7.56 pH Units (7.32-7.45) H 04/30/16 07:00 ABG pCO2 32 mmHg (35-45) L 04/30/16 07:00 ABG pO2 117 mmHg (85-104) H 04/30/16 07:00 ABG HCO3 28.7 mEQ/L (21-27) H 04/30/16 07:00 ABG Total CO2 29.7 mEq/L (20-26) H 04/30/16 07:00 ABG O2 Saturation 99 % (95-98) H 04/30/16 07:00 ABG Base Excess 6.7 mEq/L (-2.0 to 3.0) H 04/30/16 07:00 Sodium 146 mEq/L (136-145) H 05/02/16 04:50 Chloride 113 mEq/L (98-109) H 05/02/16 04:50 BUN 27 mg/dL (7-20) H 05/02/16 04:50 BUN/Creatinine Ratio 35 (6-26) H 05/02/16 04:50 Glucose 154 mg/dL (70-99) H 05/02/16 04:50 POC Glucose 164 (58-89) H 05/02/16 07:17 Calculated Osmolality 310 (280-300) H 05/02/16 04:50 Lactic Acid 2.3 mmol/L (0.5-2.2) H 04/29/16 20:26 AST 285 Units/L (5-34) H 04/30/16 02:25 ALT 230 Units/L (0-55) H 04/30/16 02:25 Albumin 2.7 g/dL (3.5-5.0) L 04/30/16 02:25 Globulin 4.0 g/dL (2.4-3.5) H 04/30/16 02:25 Albumin/Globulin Ratio 0.7 (1.1-2.2) L 04/30/16 02:25 - Microbiology Findings Microbiology Findings: Microbiology, Last 48 Hours 05/01/16 13:25 Sputum Culture - Preliminary Sputum Gram Negative Mahendra - Clinical Findings Intake & Output: Intake & Output 05/01/16 05/02/16 05/02/16 23:59 07:59 15:59 Intake Total 791 / 791 1100 / 1100 Output Total 200 / 200 325 / 325 Balance 591 / 591 775 / 775 Weight 43.9 kg
[2016-05-02] MEDS: Magnesium Sulfate 2 GM in D5% in Water 100 ML IVPB PRN ×2 (11:00→21:19)
[2016-05-02] MEDS ORDERED: *HR* Midazolam HCl 2 MG/2 ML VIAL IVP PRN ×2 (11:08→11:23)
[2016-05-02] MEDS: Chlorhexidine Rinse 15 ML MOUTHWASH MM SCH ×2 (11:10→20:00)
[2016-05-02] MEDS: Sennosides/Docusate Sodium TABLET PO SCH ×2 (11:13→20:00)
[2016-05-02] MEDS: Pantoprazole 40 MG VIAL IVP SCH (11:13)
[2016-05-02] MEDS: Norepinephrine 4 MG in D5% in Water 250 ML IVC SCH (19:53)
[2016-05-02] MEDS: FentaNYL (PF) 1,000 MCG in 0.9 % Sodium Chloride 80 ML IVC SCH (19:54)
[2016-05-02] MEDS: Dexmedetomidine HCl 400 MCG/100 ML MLS IVC SCH (19:54)
[2016-05-02 20:54] LABS: Magnesium 1.8 mg/dL (1.6-2.6); Phosphorous 2.7 mg/dL (2.3-4.7)
[2016-05-02] MEDS: Potassium Phosphate 44 MEQ in 0.9 % Sodium Chloride 250 ML IVPB PRN (21:39)
[2016-05-03] MEDS: Piperacillin/Tazobactam 3.375 GM in D5% in Water (Mini-Bag+) 100 ML IVPB SCH ×3 (03:01→20:58)
[2016-05-03] MEDS: Insulin LISPRO 300 UNITS/3 ML VIAL SQ SCH ×5 (03:05→20:58)
[2016-05-03] MEDS: Lacri-Lube 3.5 GM TUBE BOTH EYES SCH ×6 (03:05→23:38)
[2016-05-03] MEDS: 0.9 % Sodium Chloride 1,000 ML IVC SCH (03:12)
[2016-05-03] MEDS: Ipratropium/Albuterol Neb 3 ML IH SCH ×6 (03:37→23:34)
[2016-05-03 03:44] LABS: Hematocrit 26.4 % (35.3-44.9); Hemoglobin 7.9 g/dL (11.5-15.4); Immature Granulocytes % 0.2 % (0-4); Lymphocytes # 0.4 K/mcL (0.6-4.6); Lymphocytes % 4.2 %; Mean Corpuscular HGB Conc 29.9 g/dL (31.6-35.5); Mean Corpuscular Hemoglobin 30.7 pg (28.0-33.3); Mean Corpuscular Volume 102.7 fL (83.0-100.0); Mean Platelet Volume 11.2 fL (9.4-12.4); Monocytes # 0.5 K/mcL (0.0-1.3); Monocytes % 5.2 %; Neutrophils # 9.3 K/mcL (1.6-8.9); Nucleated Red Blood Cells 0.2 /100 WBC (0); Platelet Count 215 K/mcL (140-400); Red Blood Count 2.57 M/mcL (3.82-4.97); Red Cell Distribution Width 15.6 % (11.5-14.5); Segmented Neutrophils % 90.4 %
[2016-05-03 04:02] LABS: BUN/Creatinine Ratio 33 (6-26); Blood Urea Nitrogen 23 mg/dL (7-20); Calcium 8.8 mg/dL (8.6-10.8); Carbon Dioxide 22 mEq/L (19-29); Chloride 114 mEq/L (98-109); Glucose 138 mg/dL (70-99); Osmolality,Calculated 306 (280-300); Potassium 4.2 mEq/L (3.5-4.5); Sodium 145 mEq/L (136-145); eGFR For African Americans > 60 (> 60); eGFR For Non-African Americans > 60 (> 60)
[2016-05-03 04:03] LABS: Magnesium 2.2 mg/dL (1.6-2.6); Phosphorous 4.4 mg/dL (2.3-4.7)
[2016-05-03 04:18] LABS: Hypochromasia Present (Not Present); Platelet Estimate Normal (Normal); Polychromasia 1+ (Not Present)
[2016-05-03] MEDS: *HR* Enoxaparin 40 MG/0.4 ML SYRINGE SQ SCH ×2 (06:30→17:18)
[2016-05-03] MEDS: Budesonide/Formoterol 160/4.5 MDI IH SCH ×2 (07:43→20:06)
--- NOTE | 2016-05-03 07:56 | Pulmonology Progress Note ---
<Ross Man W - Last Filed: 05/03/16 10:32> Objective PUL Vital signs: Last Vital Signs Temp 98.9 F 05/03/16 08:18 Pulse 65 05/03/16 08:00 Resp 20 05/03/16 08:00 BP 105/61 05/03/16 08:00 Pulse Ox 100 05/03/16 08:00 Ventilator Settings Ventilator Settings: Ventilator Settings, Last 8 Hours Ventilator Mode A/C Ventilator Mode A/C Ventilator Mode A/C Ventilator Mode A/C Ventilator Mode A/C Ventilator Mode A/C Ventilator Mode A/C Ventilator Mode A/C Ventilator Mode A/C Ventilator Mode A/C Ventilator Mode A/C Ventilator Tidal Volume 350 Setting Ventilator Tidal Volume 350 Setting Ventilator Tidal Volume 350 Setting Ventilator Tidal Volume 350 Setting Ventilator Tidal Volume 350 Setting Ventilator Tidal Volume 350 Setting Ventilator Tidal Volume 350 Setting Ventilator Tidal Volume 350 Setting Ventilator Tidal Volume 350 Setting Ventilator Tidal Volume 350 Setting Ventilator Tidal Volume 350 Setting Ventilator Respiratory Rate 10 Setting Ventilator Respiratory Rate 10 Setting Ventilator Respiratory Rate 10 Setting Ventilator Respiratory Rate 10 Setting Ventilator Respiratory Rate 10 Setting Ventilator Respiratory Rate 10 Setting Ventilator Respiratory Rate 10 Setting Ventilator Respiratory Rate 10 Setting Ventilator Respiratory Rate 10 Setting Ventilator Respiratory Rate 10 Setting Ventilator Respiratory Rate 10 Setting Actual Respiratory Rate 20 Actual Respiratory Rate 22 Actual Respiratory Rate 16 Actual Respiratory Rate 19 Actual Respiratory Rate 18 Actual Respiratory Rate 18 Actual Respiratory Rate 19 Actual Respiratory Rate 27 Actual Respiratory Rate 20 Actual Respiratory Rate 16 Actual Respiratory Rate 16 Positive End Expiratory 5 Pressure Positive End Expiratory 5 Pressure Positive End Expiratory 5 Pressure Positive End Expiratory 5 Pressure Positive End Expiratory 5 Pressure Positive End Expiratory 5 Pressure Positive End Expiratory 5 Pressure Positive End Expiratory 5 Pressure Positive End Expiratory 5 Pressure Positive End Expiratory 5 Pressure Positive End Expiratory 5 Pressure Peak Inspiratory Airway 24 Pressure Peak Inspiratory Airway 24 Pressure Peak Inspiratory Airway 24 Pressure Peak Inspiratory Airway 24 Pressure Peak Inspiratory Airway 23 Pressure Peak Inspiratory Airway 24 Pressure Peak Inspiratory Airway 21 Pressure Peak Inspiratory Airway 25 Pressure Peak Inspiratory Airway 25 Pressure Peak Inspiratory Airway 26 Pressure Peak Inspiratory Airway 24 Pressure Results - Laboratory Findings CBC and BMP: 05/03/16 02:59 05/03/16 02:59 ABG ABG pH 7.56 pH Units (7.32-7.45) H 04/30/16 07:00 ABG pCO2 32 mmHg (35-45) L 04/30/16 07:00 ABG pO2 117 mmHg (85-104) H 04/30/16 07:00 ABG O2 Saturation 99 % (95-98) H 04/30/16 07:00 PT/INR, D-dimer PT 13.9 Seconds (9.4-12.1) H 04/30/16 02:25 Abnormal lab findings: Abnormal lab results RBC 2.57 M/mcL (3.82-4.97) L 05/03/16 02:59 Hgb 7.9 g/dL (11.5-15.4) L 05/03/16 02:59 Hct 26.4 % (35.3-44.9) L 05/03/16 02:59 MCV 102.7 fL (83.0-100.0) H 05/03/16 02:59 MCHC 29.9 g/dL (31.6-35.5) L 05/03/16 02:59 RDW 15.6 % (11.5-14.5) H 05/03/16 02:59 Band Neutrophils % 10.0 % (0-4) H 05/01/16 03:30 Neutrophils # 9.3 K/mcL (1.6-8.9) H 05/03/16 02:59 Lymphocytes # 0.4 K/mcL (0.6-4.6) L 05/03/16 02:59 Nucleated RBCs/100 WBC 0.2 /100 WBC (0) H 05/03/16 02:59 Polychromasia 1+ (Not Present) A 05/03/16 02:59 Hypochromasia Present (Not Present) A 05/03/16 02:59 Anisocytosis 1+ (Not Present) A 05/01/16 03:30 Microcytosis Present (Not Present) A 05/01/16 03:30 Macrocytosis Present (Not Present) A 05/01/16 03:30 PT 13.9 Seconds (9.4-12.1) H 04/30/16 02:25 ABG pH 7.56 pH Units (7.32-7.45) H 04/30/16 07:00 ABG pCO2 32 mmHg (35-45) L 04/30/16 07:00 ABG pO2 117 mmHg (85-104) H 04/30/16 07:00 ABG HCO3 28.7 mEQ/L (21-27) H 04/30/16 07:00 ABG Total CO2 29.7 mEq/L (20-26) H 04/30/16 07:00 ABG O2 Saturation 99 % (95-98) H 04/30/16 07:00 ABG Base Excess 6.7 mEq/L (-2.0 to 3.0) H 04/30/16 07:00 Chloride 114 mEq/L (98-109) H 05/03/16 02:59 BUN 23 mg/dL (7-20) H 05/03/16 02:59 BUN/Creatinine Ratio 33 (6-26) H 05/03/16 02:59 Glucose 138 mg/dL (70-99) H 05/03/16 02:59 POC Glucose 152 (58-89) H 05/03/16 07:21 Calculated Osmolality 306 (280-300) H 05/03/16 02:59 Lactic Acid 2.3 mmol/L (0.5-2.2) H 04/29/16 20:26 AST 285 Units/L (5-34) H 04/30/16 02:25 ALT 230 Units/L (0-55) H 04/30/16 02:25 Albumin 2.7 g/dL (3.5-5.0) L 04/30/16 02:25 Globulin 4.0 g/dL (2.4-3.5) H 04/30/16 02:25 Albumin/Globulin Ratio 0.7 (1.1-2.2) L 04/30/16 02:25 - Microbiology Findings Microbiology Findings: Microbiology, Last 48 Hours 05/01/16 13:25 Sputum Culture - Preliminary Sputum Gram Negative Mahendra Gram Negative Mahendra#2 Gram Negative Mahendra#3 - Clinical Findings Intake & Output: Intake & Output 05/02/16 05/03/16 05/03/16 23:59 07:59 15:59 Intake Total 1104 / 1104 460 / 460 Output Total 375 / 375 200 / 200 200 / 200 Balance 729 / 729 260 / 260 -200 / -200 Consult Discharge Plan - Plan Referrals: NO,PCP [Primary Care Provider] - - Attending Attestation I examined this patient and my medical decision-making was reviewed with the TOOL AND MACHINE MAINTAINER/PA/Advanced Practice Nurse/Resident Physician. I agree with the documented findings, disposition and treatment plan as described except to the extent set forth below. Patient seen and examined at bedside Labs, radiology, chart personally reviewed. All lines examined without evidence of infection. Neuropsych: EEG with burst pattern -anoxic brain injury w/o brain . Neuro following, poor prognosis. No pain/agitation meds requiring Pulm: stable on vent via trach more comfortable today. treated for pna Cards: Afib with occasional RVR. rate controlled now. load digoxin. Consider anticoagulation based upon goals of care FEN-GI: enteral feedings held for high residuals with ?aspiration will resart slowly. cont PPi prophylaxis. stop crystalloid infusion. Renal: no GRETA ID: [id number] Zosn speciation pending Heme/Onc. H/H stable cont DVT prophylaxis Endo: DM glucose monitred Integ/MSK: skin care per ICU protocol CODE: [place] of state. letter sent on behalf of ICU team and Palliative team regarding overall poor prognosis and compassionate extubation pending legal review <Juan David Alcantarel - Last Filed: 05/03/16 16:18> Date of Encounter: 05/03/16 Time of Encounter: 08:10 Assessment and Plan (1) Cardiac arrest Current Visit: Yes Status: Acute Patient suffered cardiac arrest at [facility]. Found by staff during rounds, ROSC achieved after 33 minutes of ACLS, 1 mg epi, 1 amp bicarbonate. Brought to [facility] followed by Saima. Reports of copious amount of secretions, appearing to be from tube feeds, found and suctioned at time of arrest. Patient unresponsive at this time, long-term trach and PEG tube in place. Central line placed in left femoral vein We will stop No pressor agents needed No sedation currently, Precedex and fentanyl if required Sputum culture grew 3 gram-negative rods, will continue Zosyn No wheezing auscultated today, we will continue Solu-Medrol (2) Pneumonia Current Visit: No Status: Suspected Plan as above Qualifiers: Pneumonia type: aspiration pneumonia Aspiration pneumonia type: due to vomit Laterality: unspecified laterality Lung location: unspecified part of lung Qualified Code(s): J69.0 - Pneumonitis due to inhalation of food and vomit (3) Atrial fibrillation Current Visit: Yes Status: Acute Patient has develop atrial fibrillation, she occasionally has episodes of rapid ventricular response. CHADVASc = 5 We will start digoxin beginning with loading dose of 0.22 mg We will start therapeutic Lovenox 40 mg twice a day Qualifiers: Atrial fibrillation type: unspecified Qualified Code(s): I48.91 - Unspecified atrial fibrillation (4) Chronic respiratory failure Current Visit: Yes Status: Chronic Plan as above Qualifiers: Respiratory failure complication: unspecified whether with hypoxia or hypercapnia Qualified Code(s): J96.10 - Chronic respiratory failure, unspecified whether with hypoxia or hypercapnia (5) Dementia Current Visit: No Status: Chronic Qualifiers: Dementia type: unspecified type Dementia behavioral disturbance: without behavioral disturbance Qualified Code(s): F03.90 - Unspecified dementia without behavioral disturbance (6) Diabetes Current Visit: No Status: Chronic Hold oral hypoglycemics Start medium dose sliding scale insulin every 4 hours Qualifiers: Diabetes mellitus type: type 2 Diabetes mellitus complication status: with unspecified complications Diabetes mellitus care home insulin use: unspecified intermediate school teacher insulin use status Qualified Code(s): E11.8 - Type 2 diabetes mellitus with unspecified complications (7) DVT prophylaxis Current Visit: No Status: Acute GI prophylaxis: Pantoprazole DVT prophylaxis therapeutic Lovenox Neuro/sedation: Chronic dementia, MRDD, little responsiveness at baseline, unresponsive with no sedation, neurology following, anoxic encephalopathy Cardiovascular: Post PEA versus asystole arrest, hemodynamics currently stable without need of pressor support. Development of atrial fibrillation, occasional episodes of RVR, CHADVASc = 5, will start digoxin and therapeutic Lovenox Pulmonary: 3 gram-negative rods seen inpatient sputum, COPD, 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, mechanically ventilated on tracheostomy, DuoNeb, Symbicort, Solu-Medrol, Zosyn Renal: No concerns at this time GI: Nothing by mouth for now Fluids/electrolytes: Normal saline at 75 mL an hour, mild hyperkalemia Heme: Stable anemia, no leukocytosis ID: 3 gram-negative rods in sputum, continue Zosyn, chronic tracheostomy, UA concerning (though contaminated) Endocrine: Continue every 4 hours Accu-Chek with medium dose sliding scale insulin Lines: Left femoral, peripherals Disposition: Critical CODE STATUS: Full Goals of care discussion: GAYLE [place] - court-appointed guardian Lengthy discussion regarding goals of care/CODE STATUS, guardian unable to change CODE STATUS without court order. Guardian states the trial judge (Dev Matias) we will change it if there is physician documentation regarding her overall prognosis/quality of life. Otherwise guardian is open for CODE STATUS change and possible hospice. Patient has been seen by neurology was indicated for prognosis, [place] with the palliative care team has drafted a letter for the POA (8) Goals of care, counseling/discussion Current Visit: Yes Status: Acute Goals of care discussion: GAYLE [place] - court-appointed guardian Lengthy discussion regarding goals of care/CODE STATUS, guardian unable to change CODE STATUS without court order. Guardian states the trial judge (Dev Matias) we will change it if there is physician documentation regarding her overall prognosis/quality of life. Otherwise guardian is open for CODE STATUS change and possible hospice. We will consult palliative care. Subjective Principal diagnosis: s/p Cardiac arrest Interval history: Patient remains unresponsive today, minimal nonpurposeful movements to stimulation during exam. Unresponsive otherwise. Neurology and Palliative medicine following. Per discussion with patient's guardian/POA on Tuesday, hopefully, the court will be petitioned today regarding patient CODE STATUS. Objective PUL Vital signs: Last Vital Signs Temp 98.9 F 05/03/16 02:29 Pulse 69 05/03/16 06:00 Resp 17 05/03/16 07:44 BP 107/68 05/03/16 06:39 Pulse Ox 100 05/03/16 07:44 Constitutional: Unresponsive without sedation, continues on mechanical ventilation EENT: Sclera nonicteric, oropharynx moist, patient's eyes partially open, pupils minimally responsive, tracheostomy Respiratory: Respirations nonlabored, clear to auscultation bilaterally, no wheezes/rhonchi/rales appreciated Cardiovascular: Regular rate and rhythm, mild 2/6 systolic murmur, no rubs/ gallops appreciated Gastrointestinal: Normoactive bowel sounds, soft, nondistended, no guarding or rebound, PEG tube in place Integumentary: No erythema, no rashes, no pallor appreciated, capillary refill < 2 seconds, skin turgor normal Extremities: No cyanosis, mild pedal edema, no clubbing, pink and cool, pulses present and equal bilaterally Musculoskeletal: No deformities Neurologic: Patient unresponsive on no sedation, pupils minimally responsive to light bilaterally Ventilator Settings Ventilator Settings: Ventilator Settings, Last 8 Hours Ventilator Mode A/C Ventilator Mode A/C Ventilator Mode A/C Ventilator Mode A/C Ventilator Mode A/C Ventilator Mode A/C Ventilator Mode A/C Ventilator Mode A/C Ventilator Mode A/C Ventilator Mode A/C Ventilator Mode A/C Ventilator Mode A/C Ventilator Tidal Volume 350 Setting Ventilator Tidal Volume 350 Setting Ventilator Tidal Volume 350 Setting Ventilator Tidal Volume 350 Setting Ventilator Tidal Volume 350 Setting Ventilator Tidal Volume 350 Setting Ventilator Tidal Volume 350 Setting Ventilator Tidal Volume 350 Setting Ventilator Tidal Volume 350 Setting Ventilator Tidal Volume 350 Setting Ventilator Tidal Volume 350 Setting Ventilator Tidal Volume 350 Setting Ventilator Respiratory Rate 10 Setting Ventilator Respiratory Rate 10 Setting Ventilator Respiratory Rate 10 Setting Ventilator Respiratory Rate 10 Setting Ventilator Respiratory Rate 10 Setting Ventilator Respiratory Rate 10 Setting Ventilator Respiratory Rate 10 Setting Ventilator Respiratory Rate 10 Setting Ventilator Respiratory Rate 10 Setting Ventilator Respiratory Rate 10 Setting Ventilator Respiratory Rate 10 Setting Ventilator Respiratory Rate 10 Setting Actual Respiratory Rate 22 Actual Respiratory Rate 16 Actual Respiratory Rate 19 Actual Respiratory Rate 18 Actual Respiratory Rate 18 Actual Respiratory Rate 19 Actual Respiratory Rate 27 Actual Respiratory Rate 20 Actual Respiratory Rate 16 Actual Respiratory Rate 16 Actual Respiratory Rate 16 Actual Respiratory Rate 13 Positive End Expiratory 5 Pressure Positive End Expiratory 5 Pressure Positive End Expiratory 5 Pressure Positive End Expiratory 5 Pressure Positive End Expiratory 5 Pressure Positive End Expiratory 5 Pressure Positive End Expiratory 5 Pressure Positive End Expiratory 5 Pressure Positive End Expiratory 5 Pressure Positive End Expiratory 5 Pressure Positive End Expiratory 5 Pressure Positive End Expiratory 5 Pressure Peak Inspiratory Airway 24 Pressure Peak Inspiratory Airway 24 Pressure Peak Inspiratory Airway 24 Pressure Peak Inspiratory Airway 23 Pressure Peak Inspiratory Airway 24 Pressure Peak Inspiratory Airway 21 Pressure Peak Inspiratory Airway 25 Pressure Peak Inspiratory Airway 25 Pressure Peak Inspiratory Airway 26 Pressure Peak Inspiratory Airway 24 Pressure Peak Inspiratory Airway 23 Pressure Peak Inspiratory Airway 24 Pressure Results - Laboratory Findings CBC and BMP: 05/03/16 02:59 05/03/16 02:59 ABG ABG pH 7.56 pH Units (7.32-7.45) H 04/30/16 07:00 ABG pCO2 32 mmHg (35-45) L 04/30/16 07:00 ABG pO2 117 mmHg (85-104) H 04/30/16 07:00 ABG O2 Saturation 99 % (95-98) H 04/30/16 07:00 PT/INR, D-dimer PT 13.9 Seconds (9.4-12.1) H 04/30/16 02:25 Abnormal lab findings: Abnormal lab results RBC 2.57 M/mcL (3.82-4.97) L 05/03/16 02:59 Hgb 7.9 g/dL (11.5-15.4) L 05/03/16 02:59 Hct 26.4 % (35.3-44.9) L 05/03/16 02:59 MCV 102.7 fL (83.0-100.0) H 05/03/16 02:59 MCHC 29.9 g/dL (31.6-35.5) L 05/03/16 02:59 RDW 15.6 % (11.5-14.5) H 05/03/16 02:59 Band Neutrophils % 10.0 % (0-4) H 05/01/16 03:30 Neutrophils # 9.3 K/mcL (1.6-8.9) H 05/03/16 02:59 Lymphocytes # 0.4 K/mcL (0.6-4.6) L 05/03/16 02:59 Nucleated RBCs/100 WBC 0.2 /100 WBC (0) H 05/03/16 02:59 Polychromasia 1+ (Not Present) A 05/03/16 02:59 Hypochromasia Present (Not Present) A 05/03/16 02:59 Anisocytosis 1+ (Not Present) A 05/01/16 03:30 Microcytosis Present (Not Present) A 05/01/16 03:30 Macrocytosis Present (Not Present) A 05/01/16 03:30 PT 13.9 Seconds (9.4-12.1) H 04/30/16 02:25 ABG pH 7.56 pH Units (7.32-7.45) H 04/30/16 07:00 ABG pCO2 32 mmHg (35-45) L 04/30/16 07:00 ABG pO2 117 mmHg (85-104) H 04/30/16 07:00 ABG HCO3 28.7 mEQ/L (21-27) H 04/30/16 07:00 ABG Total CO2 29.7 mEq/L (20-26) H 04/30/16 07:00 ABG O2 Saturation 99 % (95-98) H 04/30/16 07:00 ABG Base Excess 6.7 mEq/L (-2.0 to 3.0) H 04/30/16 07:00 Chloride 114 mEq/L (98-109) H 05/03/16 02:59 BUN 23 mg/dL (7-20) H 05/03/16 02:59 BUN/Creatinine Ratio 33 (6-26) H 05/03/16 02:59 Glucose 138 mg/dL (70-99) H 05/03/16 02:59 POC Glucose 152 (58-89) H 05/03/16 07:21 Calculated Osmolality 306 (280-300) H 05/03/16 02:59 Lactic Acid 2.3 mmol/L (0.5-2.2) H 04/29/16 20:26 AST 285 Units/L (5-34) H 04/30/16 02:25 ALT 230 Units/L (0-55) H 04/30/16 02:25 Albumin 2.7 g/dL (3.5-5.0) L 04/30/16 02:25 Globulin 4.0 g/dL (2.4-3.5) H 04/30/16 02:25 Albumin/Globulin Ratio 0.7 (1.1-2.2) L 04/30/16 02:25 - Microbiology Findings Microbiology Findings: Microbiology, Last 48 Hours 05/01/16 13:25 Sputum Culture - Preliminary Sputum Gram Negative Mahendra Gram Negative Mahendra#2 Gram Negative Mahendra#3 - Clinical Findings Intake & Output: Intake & Output 05/02/16 05/02/16 05/03/16 15:59 23:59 07:59 Intake Total 354 / 354 1104 / 1104 460 / 460 Output Total 350 / 350 375 / 375 200 / 200 Balance 4 / 4 729 / 729 260 / 260
[2016-05-03] MEDS: Pantoprazole 40 MG VIAL IVP SCH (08:07)
[2016-05-03] MEDS: MethylPREDNISolone 40 MG/ML VIAL IVP SCH ×3 (08:08→23:38)
[2016-05-03] MEDS: Chlorhexidine Rinse 15 ML MOUTHWASH MM SCH ×2 (08:08→21:28)
[2016-05-03] MEDS: Sennosides/Docusate Sodium TABLET PO SCH ×2 (08:08→21:28)
--- NOTE | 2016-05-03 10:03 | Neurology Progress Note ---
Date of Encounter: 05/03/16 Time of Encounter: 09:00 Assessment and Plan (1) Anoxic encephalopathy Current Visit: Yes Status: Acute No changes , EEG revealed burst suppresion pattern typically associated with a poor prognosis Continue supportive treatment (2) Cardiac arrest Current Visit: Yes Status: Acute [facility] Found by staff during rounds, ROSC achieved after 33 minutes of ACLS, 1 mg epi, 1 amp bicarbonate. Brought to [facility] followed by Saima. Reports of copious amount of secretions, appearing to be from tube feeds, found and suctioned at time of arrest. Apparent anoxic brain injury s/p arrest. (3) Respiratory failure Current Visit: No Status: Chronic Chronic with trach and PEG tubes in place. Qualifiers: Chronicity: acute on chronic Respiratory failure complication: hypercapnia Qualified Code(s): J96.22 - Acute and chronic respiratory failure with hypercapnia (4) MR (mental retardation) Current Visit: Yes Status: Chronic Subjective Principal diagnosis: s/p Cardiac arrest Interval history: Patient has continued to remain unresponsive. Awaiting court appointed power of commercial attorney to petition locker room manager for change in code status given the patient's poor prognosis. Objective - Constitutional Vitals: Temp Pulse Resp BP Pulse Ox 98.9 F 99 22 114/70 96 05/03/16 08:18 05/03/16 10:00 05/03/16 10:00 05/03/16 10:00 05/03/16 10:00 Exam: Unresponsive without sedation. - Head Head exam: Present: atraumatic, normocephalic - Eye Eye exam: Present: conjunctival injection Pupils: Present: unequal Additional comments: Corneal reflex present in right eye only - Neurological Exam Sensorimotor examination: Present: flaccid paralysis Sensation intact: Present: other (Unable to assess given level of conciousness) Mental Status Examination: Present: coma Results - Laboratory Findings CBC and BMP: 05/03/16 02:59 05/03/16 02:59 Abnormal lab findings: Abnormal lab results RBC 2.57 M/mcL (3.82-4.97) L 05/03/16 02:59 Hgb 7.9 g/dL (11.5-15.4) L 05/03/16 02:59 Hct 26.4 % (35.3-44.9) L 05/03/16 02:59 MCV 102.7 fL (83.0-100.0) H 05/03/16 02:59 MCHC 29.9 g/dL (31.6-35.5) L 05/03/16 02:59 RDW 15.6 % (11.5-14.5) H 05/03/16 02:59 Band Neutrophils % 10.0 % (0-4) H 05/01/16 03:30 Neutrophils # 9.3 K/mcL (1.6-8.9) H 05/03/16 02:59 Lymphocytes # 0.4 K/mcL (0.6-4.6) L 05/03/16 02:59 Nucleated RBCs/100 WBC 0.2 /100 WBC (0) H 05/03/16 02:59 Polychromasia 1+ (Not Present) A 05/03/16 02:59 Hypochromasia Present (Not Present) A 05/03/16 02:59 Anisocytosis 1+ (Not Present) A 05/01/16 03:30 Microcytosis Present (Not Present) A 05/01/16 03:30 Macrocytosis Present (Not Present) A 05/01/16 03:30 PT 13.9 Seconds (9.4-12.1) H 04/30/16 02:25 ABG pH 7.56 pH Units (7.32-7.45) H 04/30/16 07:00 ABG pCO2 32 mmHg (35-45) L 04/30/16 07:00 ABG pO2 117 mmHg (85-104) H 04/30/16 07:00 ABG HCO3 28.7 mEQ/L (21-27) H 04/30/16 07:00 ABG Total CO2 29.7 mEq/L (20-26) H 04/30/16 07:00 ABG O2 Saturation 99 % (95-98) H 04/30/16 07:00 ABG Base Excess 6.7 mEq/L (-2.0 to 3.0) H 04/30/16 07:00 Chloride 114 mEq/L (98-109) H 05/03/16 02:59 BUN 23 mg/dL (7-20) H 05/03/16 02:59 BUN/Creatinine Ratio 33 (6-26) H 05/03/16 02:59 Glucose 138 mg/dL (70-99) H 05/03/16 02:59 POC Glucose 152 (58-89) H 05/03/16 07:21 Calculated Osmolality 306 (280-300) H 05/03/16 02:59 Lactic Acid 2.3 mmol/L (0.5-2.2) H 04/29/16 20:26 AST 285 Units/L (5-34) H 04/30/16 02:25 ALT 230 Units/L (0-55) H 04/30/16 02:25 Albumin 2.7 g/dL (3.5-5.0) L 04/30/16 02:25 Globulin 4.0 g/dL (2.4-3.5) H 04/30/16 02:25 Albumin/Globulin Ratio 0.7 (1.1-2.2) L 04/30/16 02:25 Consult Discharge Plan - Plan Referrals: NO,PCP [Primary Care Provider] - - Attending Attestation I examined this patient and my medical decision-making was reviewed with the Resident Physician. I agree with the documented findings, disposition and treatment plan as described except to the extent set forth below.
[2016-05-03] MEDS ORDERED: *HR* Digoxin 0.5 MG/2 ML AMPUL IVP ONE (12:00)
[2016-05-03] MEDS: Bisacodyl 10 MG RECTAL SUPPOSITORY RC SCH (12:30)
--- NOTE | 2016-05-03 13:32 | Palliative Progress Note ---
Date of Encounter: 05/03/16 Time of Encounter: 13:30 - Assessment and plan (1) Generalized pain Current Visit: Yes Status: Acute Assessment and plan: Continue to monitor. She remains off of pain medication and sedatives at this time. (2) Counseling regarding advanced care planning and goals of care Current Visit: Yes Status: Acute Assessment and plan: Faxed letter to pt guardian Celeste cMdonald, reviewed and signed by Dr. Ordonez and Dr. Man re: goals of care moving forward. Celeste did call me to confirm she received this and will be presented to magistrate judge. Spoke with pt's cousin, Preeti by phone, as well as pt registered nurse hh case manager, Shilpa Devlin and Lory Arias and updated on pt condition and awaiting of magistrate judge's decision. Will continue to follow closely (3) Cardiac arrest Current Visit: Yes Status: Acute (4) Chronic respiratory failure with hypoxia and hypercapnia Current Visit: No Status: Acute - Time Spent With Patient Total time spent is greater than 50% in coordination of care (as documented) at patient's floor/unit and/or counseling patient: 25 - 35 minutes - Subjective Interval history: Patient remains unresponsive and on mechanical ventilation. Neurology consult reviewed. Patient now with atrial fibrillation and rate has elevated to 130's per nursing. She did not tolerate tube feedings over the weekend and these were discontinued. To start back with trickle feeds today and suppository/ bowel regimen. Patient with no documented BM since admission. - Constitutional Vitals: Abnormal lab results RBC 2.57 M/mcL (3.82-4.97) L 05/03/16 02:59 Hgb 7.9 g/dL (11.5-15.4) L 05/03/16 02:59 Hct 26.4 % (35.3-44.9) L 05/03/16 02:59 MCV 102.7 fL (83.0-100.0) H 05/03/16 02:59 MCHC 29.9 g/dL (31.6-35.5) L 05/03/16 02:59 RDW 15.6 % (11.5-14.5) H 05/03/16 02:59 Band Neutrophils % 10.0 % (0-4) H 05/01/16 03:30 Neutrophils # 9.3 K/mcL (1.6-8.9) H 05/03/16 02:59 Lymphocytes # 0.4 K/mcL (0.6-4.6) L 05/03/16 02:59 Nucleated RBCs/100 WBC 0.2 /100 WBC (0) H 05/03/16 02:59 Polychromasia 1+ (Not Present) A 05/03/16 02:59 Hypochromasia Present (Not Present) A 05/03/16 02:59 Anisocytosis 1+ (Not Present) A 05/01/16 03:30 Microcytosis Present (Not Present) A 05/01/16 03:30 Macrocytosis Present (Not Present) A 05/01/16 03:30 PT 13.9 Seconds (9.4-12.1) H 04/30/16 02:25 ABG pH 7.56 pH Units (7.32-7.45) H 04/30/16 07:00 ABG pCO2 32 mmHg (35-45) L 04/30/16 07:00 ABG pO2 117 mmHg (85-104) H 04/30/16 07:00 ABG HCO3 28.7 mEQ/L (21-27) H 04/30/16 07:00 ABG Total CO2 29.7 mEq/L (20-26) H 04/30/16 07:00 ABG O2 Saturation 99 % (95-98) H 04/30/16 07:00 ABG Base Excess 6.7 mEq/L (-2.0 to 3.0) H 04/30/16 07:00 Chloride 114 mEq/L (98-109) H 05/03/16 02:59 BUN 23 mg/dL (7-20) H 05/03/16 02:59 BUN/Creatinine Ratio 33 (6-26) H 05/03/16 02:59 Glucose 138 mg/dL (70-99) H 05/03/16 02:59 POC Glucose 164 (58-89) H 05/03/16 11:38 Calculated Osmolality 306 (280-300) H 05/03/16 02:59 Lactic Acid 2.3 mmol/L (0.5-2.2) H 04/29/16 20:26 AST 285 Units/L (5-34) H 04/30/16 02:25 ALT 230 Units/L (0-55) H 04/30/16 02:25 Albumin 2.7 g/dL (3.5-5.0) L 04/30/16 02:25 Globulin 4.0 g/dL (2.4-3.5) H 04/30/16 02:25 Albumin/Globulin Ratio 0.7 (1.1-2.2) L 04/30/16 02:25 General appearance: Present: no acute distress - Respiratory Additional comments: Occasional rhonchi bilateral anterior chest. Remains trach-vent. - Cardiovascular Cardiovascular exam: Present: irregular rhythm - GI/Abdominal GI/Abdominal exam: Present: hypoactive bowel sounds, soft Additional comments: PEG intact - Additional comments: Urine dk yellow - Extremities Exam Extremities exam: Present: normal capillary refill, normal inspection - Neurological Exam Additional comments: Remains unresponsive, breathing over vent. - Skin Skin exam: Present: dry, warm Palliative Quality Palliative Quality: Screen for Code Status: NA, Screen for Goals of Care: NA, Screen for Pain: NA, If Pain Regimen Started, Initiate Bowel Regimen: NA, Screen for Nausea/Vomitting: NA Code Status: 04/29/16 19:24 Resuscitation Status: Active [RES] Routine Comment: Resuscitation Status: Full Code - Labs CBC & Chem 7: 05/03/16 02:59 05/03/16 02:59 Labs: Laboratory Results - last 24 hr 05/02/16 05/02/16 05/02/16 15:15 17:00 17:38 WBC RBC Hgb Hct MCV MCH MCHC RDW Plt Count MPV Immature Gran % Seg Neutrophils % Lymphocytes % Monocytes % Eosinophils % Basophils % Neutrophils # Lymphocytes # Monocytes # Eosinophils # Basophils # Nucleated RBCs/100 WBC Platelet Estimate Polychromasia Hypochromasia Sodium Potassium Chloride Carbon Dioxide BUN Creatinine Est GFR ( Amer) Est GFR (Non-Af Amer) BUN/Creatinine Ratio Glucose POC Glucose 109 H Calculated Osmolality Calcium Phosphorus 2.5 Magnesium 2.0 05/02/16 05/02/16 05/02/16 19:20 20:10 23:11 WBC RBC Hgb Hct MCV MCH MCHC RDW Plt Count MPV Immature Gran % Seg Neutrophils % Lymphocytes % Monocytes % Eosinophils % Basophils % Neutrophils # Lymphocytes # Monocytes # Eosinophils # Basophils # Nucleated RBCs/100 WBC Platelet Estimate Polychromasia Hypochromasia Sodium Potassium Chloride Carbon Dioxide BUN Creatinine Est GFR ( Amer) Est GFR (Non-Af Amer) BUN/Creatinine Ratio Glucose POC Glucose 121 H 147 H Calculated Osmolality Calcium Phosphorus 2.7 Magnesium 1.8 05/03/16 05/03/16 05/03/16 02:59 02:59 02:59 WBC 10.3 RBC 2.57 L Hgb 7.9 L Hct 26.4 L MCV 102.7 H MCH 30.7 MCHC 29.9 L RDW 15.6 H Plt Count 215 MPV 11.2 Immature Gran % 0.2 Seg Neutrophils % 90.4 Lymphocytes % 4.2 Monocytes % 5.2 Eosinophils % 0.0 Basophils % 0.0 Neutrophils # 9.3 H Lymphocytes # 0.4 L Monocytes # 0.5 Eosinophils # 0.0 Basophils # 0.0 Nucleated RBCs/100 WBC 0.2 H Platelet Estimate Normal Polychromasia 1+ A Hypochromasia Present A Sodium 145 Potassium 4.2 Chloride 114 H Carbon Dioxide 22 BUN 23 H Creatinine 0.70 Est GFR ( Amer) > 60 Est GFR (Non-Af Amer) > 60 BUN/Creatinine Ratio 33 H Glucose 138 H POC Glucose Calculated Osmolality 306 H Calcium 8.8 Phosphorus 4.4 D Magnesium 2.2 05/03/16 05/03/16 05/03/16 03:05 07:21 11:38 WBC RBC Hgb Hct MCV MCH MCHC RDW Plt Count MPV Immature Gran % Seg Neutrophils % Lymphocytes % Monocytes % Eosinophils % Basophils % Neutrophils # Lymphocytes # Monocytes # Eosinophils # Basophils # Nucleated RBCs/100 WBC Platelet Estimate Polychromasia Hypochromasia Sodium Potassium Chloride Carbon Dioxide BUN Creatinine Est GFR ( Amer) Est GFR (Non-Af Amer) BUN/Creatinine Ratio Glucose POC Glucose 134 H 152 H 164 H Calculated Osmolality Calcium Phosphorus Magnesium - ABG Interpretation ABG results: ABG ABG pH 7.56 pH Units (7.32-7.45) H 04/30/16 07:00 ABG pCO2 32 mmHg (35-45) L 04/30/16 07:00 ABG pO2 117 mmHg (85-104) H 04/30/16 07:00 ABG O2 Saturation 99 % (95-98) H 04/30/16 07:00 PT/INR, D-dimer PT 13.9 Seconds (9.4-12.1) H 04/30/16 02:25 Consult Discharge Plan - Plan Referrals: NO,PCP [Primary Care Provider] -
[2016-05-03] MEDS: Norepinephrine 4 MG in D5% in Water 250 ML IVC SCH (17:10)
[2016-05-03] MEDS: *HR* Digoxin 0.5 MG/2 ML AMPUL IVP SCH ×2 (17:18→23:56)
[2016-05-03] MEDS: FentaNYL (PF) 1,000 MCG in 0.9 % Sodium Chloride 80 ML IVC SCH (20:58)
[2016-05-03] MEDS: Dexmedetomidine HCl 400 MCG/100 ML MLS IVC SCH (20:58)
[2016-05-04] MEDS: Ipratropium/Albuterol Neb 3 ML IH SCH ×6 (03:18→21:23)
[2016-05-04] MEDS: Piperacillin/Tazobactam 3.375 GM in D5% in Water (Mini-Bag+) 100 ML IVPB SCH (04:25)
[2016-05-04] MEDS: Insulin LISPRO 300 UNITS/3 ML VIAL SQ SCH ×4 (04:25→11:39)
[2016-05-04] MEDS: Lacri-Lube 3.5 GM TUBE BOTH EYES SCH ×3 (04:25→11:39)
[2016-05-04 04:28] LABS: Hematocrit 28.2 % (35.3-44.9); Hemoglobin 8.5 g/dL (11.5-15.4); Immature Granulocytes % 0.6 % (0-4); Mean Corpuscular HGB Conc 30.1 g/dL (31.6-35.5); Mean Corpuscular Hemoglobin 30.7 pg (28.0-33.3); Mean Corpuscular Volume 101.8 fL (83.0-100.0); Mean Platelet Volume 10.8 fL (9.4-12.4); Monocytes # 0.7 K/mcL (0.0-1.3); Nucleated Red Blood Cells 0.1 /100 WBC (0); Platelet Count 228 K/mcL (140-400); Red Blood Count 2.77 M/mcL (3.82-4.97); Red Cell Distribution Width 15.3 % (11.5-14.5)
[2016-05-04 04:50] LABS: Magnesium 1.5 mg/dL (1.6-2.6); Phosphorous 3.3 mg/dL (2.3-4.7)
[2016-05-04 05:08] LABS: BUN/Creatinine Ratio 36 (6-26); Blood Urea Nitrogen 28 mg/dL (7-20); Calcium 8.8 mg/dL (8.6-10.8); Carbon Dioxide 22 mEq/L (19-29); Chloride 113 mEq/L (98-109); Glucose 183 mg/dL (70-99); Osmolality,Calculated 308 (280-300); Platelet Estimate Normal (Normal); Potassium 4.2 mEq/L (3.5-4.5); Sodium 144 mEq/L (136-145); Toxic Granulation Present (Not Present); eGFR For African Americans > 60 (> 60); eGFR For Non-African Americans > 60 (> 60)
[2016-05-04 05:15] LABS: Lymphocytes # 0.5 K/mcL (0.6-4.6); Neutrophils # 22.8 K/mcL (1.6-8.9)
[2016-05-04] MEDS: *HR* Enoxaparin 40 MG/0.4 ML SYRINGE SQ SCH (05:19)
[2016-05-04] MEDS: Magnesium Sulfate 2 GM in D5% in Water 100 ML IVPB PRN (06:13)
[2016-05-04] MEDS: Budesonide/Formoterol 160/4.5 MDI IH SCH (07:36)
--- NOTE | 2016-05-04 08:01 | Pulmonology Progress Note ---
<Ross Man W - Last Filed: 05/04/16 12:02> Objective PUL Vital signs: Last Vital Signs Temp 96.0 F L 05/04/16 08:00 Pulse 60 05/04/16 09:00 Resp 17 05/04/16 09:00 BP 107/60 05/04/16 09:00 Pulse Ox 100 05/04/16 09:00 Ventilator Settings Ventilator Settings: Ventilator Settings, Last 8 Hours Ventilator Mode VC+ Ventilator Mode VC+ Ventilator Mode VC+ Ventilator Mode VC+ Ventilator Mode VC+ Ventilator Mode VC+ Ventilator Mode VC+ Ventilator Mode VC+ Ventilator Mode VC+ Ventilator Mode VC+ Ventilator Tidal Volume 350 Setting Ventilator Tidal Volume 350 Setting Ventilator Tidal Volume 350 Setting Ventilator Tidal Volume 350 Setting Ventilator Tidal Volume 350 Setting Ventilator Tidal Volume 350 Setting Ventilator Tidal Volume 350 Setting Ventilator Tidal Volume 350 Setting Ventilator Tidal Volume 350 Setting Ventilator Tidal Volume 350 Setting Ventilator Respiratory Rate 10 Setting Ventilator Respiratory Rate 10 Setting Ventilator Respiratory Rate 10 Setting Ventilator Respiratory Rate 10 Setting Ventilator Respiratory Rate 10 Setting Ventilator Respiratory Rate 10 Setting Ventilator Respiratory Rate 10 Setting Ventilator Respiratory Rate 10 Setting Ventilator Respiratory Rate 10 Setting Ventilator Respiratory Rate 10 Setting Actual Respiratory Rate 15 Actual Respiratory Rate 15 Actual Respiratory Rate 17 Actual Respiratory Rate 17 Actual Respiratory Rate 20 Actual Respiratory Rate 24 Actual Respiratory Rate 20 Actual Respiratory Rate 21 Actual Respiratory Rate 23 Actual Respiratory Rate 18 Positive End Expiratory 5 Pressure Positive End Expiratory 5 Pressure Positive End Expiratory 5 Pressure Positive End Expiratory 5 Pressure Positive End Expiratory 5 Pressure Positive End Expiratory 5 Pressure Positive End Expiratory 5 Pressure Positive End Expiratory 5 Pressure Positive End Expiratory 5 Pressure Positive End Expiratory 5 Pressure Peak Inspiratory Airway 21 Pressure Peak Inspiratory Airway 20 Pressure Peak Inspiratory Airway 22 Pressure Peak Inspiratory Airway 21 Pressure Peak Inspiratory Airway 21 Pressure Peak Inspiratory Airway 20 Pressure Peak Inspiratory Airway 21 Pressure Peak Inspiratory Airway 21 Pressure Peak Inspiratory Airway 20 Pressure Peak Inspiratory Airway 19 Pressure Results - Laboratory Findings CBC and BMP: 05/04/16 04:05 05/04/16 04:05 ABG ABG pH 7.56 pH Units (7.32-7.45) H 04/30/16 07:00 ABG pCO2 32 mmHg (35-45) L 04/30/16 07:00 ABG pO2 117 mmHg (85-104) H 04/30/16 07:00 ABG O2 Saturation 99 % (95-98) H 04/30/16 07:00 PT/INR, D-dimer PT 13.9 Seconds (9.4-12.1) H 04/30/16 02:25 Abnormal lab findings: Abnormal lab results WBC 15.4 K/mcL (4.3-11.1) H 05/04/16 04:05 RBC 2.77 M/mcL (3.82-4.97) L 05/04/16 04:05 Hgb 8.5 g/dL (11.5-15.4) L 05/04/16 04:05 Hct 28.2 % (35.3-44.9) L 05/04/16 04:05 MCV 101.8 fL (83.0-100.0) H 05/04/16 04:05 MCHC 30.1 g/dL (31.6-35.5) L 05/04/16 04:05 RDW 15.3 % (11.5-14.5) H 05/04/16 04:05 Band Neutrophils % 56.0 % (0-4) H 05/04/16 04:05 Neutrophils # 22.8 K/mcL (1.6-8.9) H 05/04/16 04:05 Lymphocytes # 0.5 K/mcL (0.6-4.6) L 05/04/16 04:05 Nucleated RBCs/100 WBC 0.1 /100 WBC (0) H 05/04/16 04:05 Toxic Granulation Present (Not Present) A 05/04/16 04:05 Polychromasia 1+ (Not Present) A 05/03/16 02:59 Hypochromasia Present (Not Present) A 05/03/16 02:59 Anisocytosis 1+ (Not Present) A 05/01/16 03:30 Microcytosis Present (Not Present) A 05/01/16 03:30 Macrocytosis Present (Not Present) A 05/01/16 03:30 PT 13.9 Seconds (9.4-12.1) H 04/30/16 02:25 ABG pH 7.56 pH Units (7.32-7.45) H 04/30/16 07:00 ABG pCO2 32 mmHg (35-45) L 04/30/16 07:00 ABG pO2 117 mmHg (85-104) H 04/30/16 07:00 ABG HCO3 28.7 mEQ/L (21-27) H 04/30/16 07:00 ABG Total CO2 29.7 mEq/L (20-26) H 04/30/16 07:00 ABG O2 Saturation 99 % (95-98) H 04/30/16 07:00 ABG Base Excess 6.7 mEq/L (-2.0 to 3.0) H 04/30/16 07:00 Chloride 113 mEq/L (98-109) H 05/04/16 04:05 BUN 28 mg/dL (7-20) H 05/04/16 04:05 BUN/Creatinine Ratio 36 (6-26) H 05/04/16 04:05 Glucose 183 mg/dL (70-99) H 05/04/16 04:05 POC Glucose 175 (58-89) H 05/04/16 07:28 Calculated Osmolality 308 (280-300) H 05/04/16 04:05 Lactic Acid 2.3 mmol/L (0.5-2.2) H 04/29/16 20:26 Magnesium 1.5 mg/dL (1.6-2.6) L 05/04/16 04:05 AST 285 Units/L (5-34) H 04/30/16 02:25 ALT 230 Units/L (0-55) H 04/30/16 02:25 Albumin 2.7 g/dL (3.5-5.0) L 04/30/16 02:25 Globulin 4.0 g/dL (2.4-3.5) H 04/30/16 02:25 Albumin/Globulin Ratio 0.7 (1.1-2.2) L 04/30/16 02:25 - Microbiology Findings Microbiology Findings: Microbiology, Last 48 Hours 05/01/16 13:25 Sputum Culture - Preliminary Sputum Pseudomonas aeruginosa Gram Negative Mahendra#2 Klebsiella pneumoniae - Clinical Findings Intake & Output: Intake & Output 05/03/16 05/04/16 05/04/16 23:59 07:59 15:59 Intake Total 473 / 473 192 / 192 204 / 204 Output Total 125 / 125 225 / 225 100 / 100 Balance 348 / 348 -33 / -33 104 / 104 Consult Discharge Plan - Plan Referrals: NO,PCP [Primary Care Provider] - - Attending Attestation I examined this patient and my medical decision-making was reviewed with the NEUROSCIENTIST/PA/Advanced Practice Nurse/Resident Physician. I agree with the documented findings, disposition and treatment plan as described except to the extent set forth below. [place]. letter sent on behalf of ICU team and Palliative team regarding overall poor prognosis cook roast has signed off on making patient DNRCC code status updated to reflect this plan on d/c Vent after caregiver from SNF can join her. <Osei Alcantra - Last Filed: 05/04/16 14:31> Date of Encounter: 05/04/16 Time of Encounter: 07:40 Assessment and Plan (1) Cardiac arrest Current Visit: Yes Status: Acute Patient suffered cardiac arrest at long term. Found by staff during rounds, ROSC achieved after 33 minutes of ACLS, 1 mg epi, 1 amp bicarbonate. Brought to [facility] followed by Saima on 04/29/16. Reports of copious amount of secretions, appearing to be from tube feeds, found and suctioned at time of arrest. Patient unresponsive at this time, long-term trach and PEG tube in place. Sputum culture showed Pseudomonas, Klebsiella, and another gram-negative mahendra, currently unidentified. Pseudomonas and Klebsiella sensitive to Zosyn. Patient developed atrial fibrillation the evening of 05/02/16. Was started on digoxin and therapeutic Lovenox. We will discontinue several patient medications in anticipation of cessation of mechanical ventilation Patient is confirmed to be a DNR CC and will undergo cessation of mechanical ventilation following ICU rounds this morning Currently remains unresponsive with no sedation due to severe anoxic brain injury No pressor agents needed We will discontinue Zosyn We will discontinue digoxin Discontinue systemic steroids we will continue DuoNeb and Symbicort (2) Pneumonia Current Visit: No Status: Suspected Plan as above Qualifiers: Pneumonia type: aspiration pneumonia Aspiration pneumonia type: due to vomit Laterality: unspecified laterality Lung location: unspecified part of lung Qualified Code(s): J69.0 - Pneumonitis due to inhalation of food and vomit (3) Atrial fibrillation Current Visit: Yes Status: Acute Patient has developed atrial fibrillation on the evening of 05/02/16, she occasionally has episodes of rapid ventricular response. CHADVASc = 5 Digoxin loading occurred yesterday We will discontinue the digoxin and Lovenox Qualifiers: Atrial fibrillation type: unspecified Qualified Code(s): I48.91 - Unspecified atrial fibrillation (4) Chronic respiratory failure Current Visit: Yes Status: Chronic Plan as above Qualifiers: Respiratory failure complication: unspecified whether with hypoxia or hypercapnia Qualified Code(s): J96.10 - Chronic respiratory failure, unspecified whether with hypoxia or hypercapnia (5) Dementia Current Visit: No Status: Chronic Qualifiers: Dementia type: unspecified type Dementia behavioral disturbance: without behavioral disturbance Qualified Code(s): F03.90 - Unspecified dementia without behavioral disturbance (6) Diabetes Current Visit: No Status: Chronic Hold oral hypoglycemics Start medium dose sliding scale insulin every 4 hours Qualifiers: Diabetes mellitus type: type 2 Diabetes mellitus complication status: with unspecified complications Diabetes mellitus chcf insulin use: unspecified chcf insulin use status Qualified Code(s): E11.8 - Type 2 diabetes mellitus with unspecified complications (7) DVT prophylaxis Current Visit: No Status: Acute GI prophylaxis: Pantoprazole DVT prophylaxis will discontinue Lovenox Neuro/sedation: Chronic dementia, MRDD, little responsiveness at baseline, unresponsive with no sedation, neurology following, anoxic encephalopathy Cardiovascular: Post PEA versus asystole arrest, hemodynamics currently stable without need of pressor support. Development of atrial fibrillation, occasional episodes of RVR, CHADVASc = 5, we will discontinue digoxin and Lovenox Pulmonary: Pseudomonas, Klebsiella, and another gram-negative mahendra (currently unidentified) in sputum, COPD, 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, mechanically ventilated on tracheostomy, DuoNeb, Symbicort, we will discontinue Solu-Medrol and Zosyn anticipation of cessation of mechanical ventilation Renal: No concerns at this time GI: Small tube feedings initiated yesterday Fluids/electrolytes: No concerns this time Heme: Stable anemia, no leukocytosis ID: Pseudomonas, Klebsiella, another gram-negative mahendra (currently identified) in sputum, discontinue Zosyn, chronic tracheostomy Endocrine: Continue every 4 hours Accu-Chek with medium dose sliding scale insulin Lines: Left femoral, peripherals, no sign of infection Disposition: Critical. Plan for cessation of mechanical ventilation later this morning CODE STATUS: Full Goals of care discussion: GAYLE [place] - court-appointed guardian Physician letter was submitted to the court yesterday by GAYLE, patient changing CODE STATUS confirmed today. She is currently DNR CC with plan to undergo cessation of mechanical ventilation later this morning. Several medications will be discontinued in anticipation of cessation of mechanical ventilation (8) Goals of care, counseling/discussion Current Visit: Yes Status: Acute Goals of care discussion: GAYLE [place] - court-appointed guardian Physician letter submitted to the court yesterday by GAYLE, patient changing CODE STATUS confirmed today. She is currently DNR CC with plan to undergo cessation of mechanical ventilation later this morning Subjective Principal diagnosis: s/p Cardiac arrest Interval history: Patient remains unresponsive today, minimal nonpurposeful movements to stimulation during exam. Unresponsive otherwise. Neurology and Palliative medicine following. [place] with palliative medicine faxed signed physician letter to GAYLE yesterday. The letter was to be presented to the cook roast yesterday and confirmation of patient's DNR CC was confirmed this morning. CODE STATUS was changed and plan undergo cessation of mechanical ventilation later this morning. Objective PUL Vital signs: Last Vital Signs Temp 96.0 F L 05/04/16 08:00 Pulse 65 05/04/16 06:00 Resp 17 05/04/16 07:37 BP 102/76 05/04/16 07:37 Pulse Ox 100 05/04/16 07:37 Constitutional: Unresponsive without sedation, continues on mechanical ventilation EENT: Sclera nonicteric, oropharynx moist, patient's eyes partially open, pupils minimally responsive, tracheostomy Respiratory: Respirations nonlabored, clear to auscultation bilaterally, no wheezes/rhonchi/rales appreciated Cardiovascular: Regular rate and rhythm, mild 2/6 systolic murmur, no rubs/ gallops appreciated Gastrointestinal: Normoactive bowel sounds, soft, nondistended, no guarding or rebound, PEG tube in place without signs of erythema, induration, or inflammation Integumentary: No erythema, no rashes, no pallor appreciated, capillary refill < 2 seconds, skin turgor normal Extremities: No cyanosis, mild pedal edema, no clubbing, pink and cool, pulses present and equal bilaterally Musculoskeletal: No gross deformities Neurologic: Patient unresponsive on no sedation, pupils minimally responsive to light bilaterally Ventilator Settings Ventilator Settings: Ventilator Settings, Last 8 Hours Ventilator Mode VC+ Ventilator Mode VC+ Ventilator Mode VC+ Ventilator Mode VC+ Ventilator Mode VC+ Ventilator Mode VC+ Ventilator Mode VC+ Ventilator Mode VC+ Ventilator Mode VC+ Ventilator Mode VC+ Ventilator Tidal Volume 350 Setting Ventilator Tidal Volume 350 Setting Ventilator Tidal Volume 350 Setting Ventilator Tidal Volume 350 Setting Ventilator Tidal Volume 350 Setting Ventilator Tidal Volume 350 Setting Ventilator Tidal Volume 350 Setting Ventilator Tidal Volume 350 Setting Ventilator Tidal Volume 350 Setting Ventilator Tidal Volume 350 Setting Ventilator Respiratory Rate 10 Setting Ventilator Respiratory Rate 10 Setting Ventilator Respiratory Rate 10 Setting Ventilator Respiratory Rate 10 Setting Ventilator Respiratory Rate 10 Setting Ventilator Respiratory Rate 10 Setting Ventilator Respiratory Rate 10 Setting Ventilator Respiratory Rate 10 Setting Ventilator Respiratory Rate 10 Setting Ventilator Respiratory Rate 10 Setting Actual Respiratory Rate 17 Actual Respiratory Rate 17 Actual Respiratory Rate 20 Actual Respiratory Rate 24 Actual Respiratory Rate 20 Actual Respiratory Rate 21 Actual Respiratory Rate 23 Actual Respiratory Rate 18 Actual Respiratory Rate 18 Actual Respiratory Rate 21 Positive End Expiratory 5 Pressure Positive End Expiratory 5 Pressure Positive End Expiratory 5 Pressure Positive End Expiratory 5 Pressure Positive End Expiratory 5 Pressure Positive End Expiratory 5 Pressure Positive End Expiratory 5 Pressure Positive End Expiratory 5 Pressure Positive End Expiratory 5 Pressure Positive End Expiratory 5 Pressure Peak Inspiratory Airway 22 Pressure Peak Inspiratory Airway 21 Pressure Peak Inspiratory Airway 21 Pressure Peak Inspiratory Airway 20 Pressure Peak Inspiratory Airway 21 Pressure Peak Inspiratory Airway 21 Pressure Peak Inspiratory Airway 20 Pressure Peak Inspiratory Airway 19 Pressure Peak Inspiratory Airway 20 Pressure Peak Inspiratory Airway 22 Pressure Results - Laboratory Findings CBC and BMP: 05/04/16 04:05 05/04/16 04:05 ABG ABG pH 7.56 pH Units (7.32-7.45) H 04/30/16 07:00 ABG pCO2 32 mmHg (35-45) L 04/30/16 07:00 ABG pO2 117 mmHg (85-104) H 04/30/16 07:00 ABG O2 Saturation 99 % (95-98) H 04/30/16 07:00 PT/INR, D-dimer PT 13.9 Seconds (9.4-12.1) H 04/30/16 02:25 Abnormal lab findings: Abnormal lab results WBC 15.4 K/mcL (4.3-11.1) H 05/04/16 04:05 RBC 2.77 M/mcL (3.82-4.97) L 05/04/16 04:05 Hgb 8.5 g/dL (11.5-15.4) L 05/04/16 04:05 Hct 28.2 % (35.3-44.9) L 05/04/16 04:05 MCV 101.8 fL (83.0-100.0) H 05/04/16 04:05 MCHC 30.1 g/dL (31.6-35.5) L 05/04/16 04:05 RDW 15.3 % (11.5-14.5) H 05/04/16 04:05 Band Neutrophils % 56.0 % (0-4) H 05/04/16 04:05 Neutrophils # 22.8 K/mcL (1.6-8.9) H 05/04/16 04:05 Lymphocytes # 0.5 K/mcL (0.6-4.6) L 05/04/16 04:05 Nucleated RBCs/100 WBC 0.1 /100 WBC (0) H 05/04/16 04:05 Toxic Granulation Present (Not Present) A 05/04/16 04:05 Polychromasia 1+ (Not Present) A 05/03/16 02:59 Hypochromasia Present (Not Present) A 05/03/16 02:59 Anisocytosis 1+ (Not Present) A 05/01/16 03:30 Microcytosis Present (Not Present) A 05/01/16 03:30 Macrocytosis Present (Not Present) A 05/01/16 03:30 PT 13.9 Seconds (9.4-12.1) H 04/30/16 02:25 ABG pH 7.56 pH Units (7.32-7.45) H 04/30/16 07:00 ABG pCO2 32 mmHg (35-45) L 04/30/16 07:00 ABG pO2 117 mmHg (85-104) H 04/30/16 07:00 ABG HCO3 28.7 mEQ/L (21-27) H 04/30/16 07:00 ABG Total CO2 29.7 mEq/L (20-26) H 04/30/16 07:00 ABG O2 Saturation 99 % (95-98) H 04/30/16 07:00 ABG Base Excess 6.7 mEq/L (-2.0 to 3.0) H 04/30/16 07:00 Chloride 113 mEq/L (98-109) H 05/04/16 04:05 BUN 28 mg/dL (7-20) H 05/04/16 04:05 BUN/Creatinine Ratio 36 (6-26) H 05/04/16 04:05 Glucose 183 mg/dL (70-99) H 05/04/16 04:05 POC Glucose 175 (58-89) H 05/04/16 07:28 Calculated Osmolality 308 (280-300) H 05/04/16 04:05 Lactic Acid 2.3 mmol/L (0.5-2.2) H 04/29/16 20:26 Magnesium 1.5 mg/dL (1.6-2.6) L 05/04/16 04:05 AST 285 Units/L (5-34) H 04/30/16 02:25 ALT 230 Units/L (0-55) H 04/30/16 02:25 Albumin 2.7 g/dL (3.5-5.0) L 04/30/16 02:25 Globulin 4.0 g/dL (2.4-3.5) H 04/30/16 02:25 Albumin/Globulin Ratio 0.7 (1.1-2.2) L 04/30/16 02:25 - Microbiology Findings Microbiology Findings: Microbiology, Last 48 Hours 05/01/16 13:25 Sputum Culture - Preliminary Sputum Pseudomonas aeruginosa Gram Negative Mahendra#2 Klebsiella pneumoniae - Clinical Findings Intake & Output: Intake & Output 05/03/16 05/04/16 05/04/16 23:59 07:59 15:59 Intake Total 473 / 473 192 / 192 Output Total 125 / 125 225 / 225 100 / 100 Balance 348 / 348 -33 / -33 -100 / -100
[2016-05-04] MEDS: Sennosides/Docusate Sodium TABLET PO SCH (08:56)
[2016-05-04] MEDS: Bisacodyl 10 MG RECTAL SUPPOSITORY RC SCH (08:56)
[2016-05-04] MEDS: MethylPREDNISolone 40 MG/ML VIAL IVP SCH (08:56)
[2016-05-04] MEDS: Chlorhexidine Rinse 15 ML MOUTHWASH MM SCH (08:56)
[2016-05-04] MEDS: Pantoprazole 40 MG VIAL IVP SCH (08:56)
--- NOTE | 2016-05-04 09:26 | Palliative Progress Note ---
Date of Encounter: 05/04/16 Time of Encounter: 09:00 - Assessment and plan (1) Dyspnea Current Visit: Yes Status: Acute Assessment and plan: Provide Morphine to assist with any shortness of breath or respiratory distress post extubation. (2) Anxiety Current Visit: Yes Status: Acute Assessment and plan: Have Lorazepam available on PRN basis if needed for restlessness as a comfort measure (3) Generalized pain Current Visit: Yes Status: Acute Assessment and plan: Will have MOrphine available PRN. (4) Counseling regarding advanced care planning and goals of care Current Visit: Yes Status: Acute Assessment and plan: Letter received from pt guardian and signed by loading machine adjuster Khanh Matias, [place], [place] providing order of the court to transition pt to DNRCC and withdraw mechanical ventilation and other life sustaining measures. DNRCC order placed in pt record. Notified pt Senior Digital Designer, Shilpa Devlin, as well as pt 's cousin, Preeti. Preeti states no family will be coming to the hospital, however, there are 2 fpc workers that know pt well that will be coming to hospital to be with pt. If patient passes away here, arrangements to be made at [facility], director Mo Higuera, ([phone]. Will plan compassionate withdrawal of ventilator early afternoon and provide comfort measures. (5) Cardiac arrest Current Visit: Yes Status: Acute (6) Chronic respiratory failure with hypoxia and hypercapnia Current Visit: No Status: Acute - Time Spent With Patient Total time spent is greater than 50% in coordination of care (as documented) at patient's floor/unit and/or counseling patient: 25 - 35 minutes - Subjective Interval history: Patient remains unresponsive and on mechanical ventilation. Afib - rate currently in 50's. Appears in no distress. No visitors present - Constitutional Vitals: Abnormal lab results WBC 15.4 K/mcL (4.3-11.1) H 05/04/16 04:05 RBC 2.77 M/mcL (3.82-4.97) L 05/04/16 04:05 Hgb 8.5 g/dL (11.5-15.4) L 05/04/16 04:05 Hct 28.2 % (35.3-44.9) L 05/04/16 04:05 MCV 101.8 fL (83.0-100.0) H 05/04/16 04:05 MCHC 30.1 g/dL (31.6-35.5) L 05/04/16 04:05 RDW 15.3 % (11.5-14.5) H 05/04/16 04:05 Band Neutrophils % 56.0 % (0-4) H 05/04/16 04:05 Neutrophils # 22.8 K/mcL (1.6-8.9) H 05/04/16 04:05 Lymphocytes # 0.5 K/mcL (0.6-4.6) L 05/04/16 04:05 Nucleated RBCs/100 WBC 0.1 /100 WBC (0) H 05/04/16 04:05 Toxic Granulation Present (Not Present) A 05/04/16 04:05 Polychromasia 1+ (Not Present) A 05/03/16 02:59 Hypochromasia Present (Not Present) A 05/03/16 02:59 Anisocytosis 1+ (Not Present) A 05/01/16 03:30 Microcytosis Present (Not Present) A 05/01/16 03:30 Macrocytosis Present (Not Present) A 05/01/16 03:30 PT 13.9 Seconds (9.4-12.1) H 04/30/16 02:25 ABG pH 7.56 pH Units (7.32-7.45) H 04/30/16 07:00 ABG pCO2 32 mmHg (35-45) L 04/30/16 07:00 ABG pO2 117 mmHg (85-104) H 04/30/16 07:00 ABG HCO3 28.7 mEQ/L (21-27) H 04/30/16 07:00 ABG Total CO2 29.7 mEq/L (20-26) H 04/30/16 07:00 ABG O2 Saturation 99 % (95-98) H 04/30/16 07:00 ABG Base Excess 6.7 mEq/L (-2.0 to 3.0) H 04/30/16 07:00 Chloride 113 mEq/L (98-109) H 05/04/16 04:05 BUN 28 mg/dL (7-20) H 05/04/16 04:05 BUN/Creatinine Ratio 36 (6-26) H 05/04/16 04:05 Glucose 183 mg/dL (70-99) H 05/04/16 04:05 POC Glucose 175 (58-89) H 05/04/16 07:28 Calculated Osmolality 308 (280-300) H 05/04/16 04:05 Lactic Acid 2.3 mmol/L (0.5-2.2) H 04/29/16 20:26 Magnesium 1.5 mg/dL (1.6-2.6) L 05/04/16 04:05 AST 285 Units/L (5-34) H 04/30/16 02:25 ALT 230 Units/L (0-55) H 04/30/16 02:25 Albumin 2.7 g/dL (3.5-5.0) L 04/30/16 02:25 Globulin 4.0 g/dL (2.4-3.5) H 04/30/16 02:25 Albumin/Globulin Ratio 0.7 (1.1-2.2) L 04/30/16 02:25 General appearance: Present: no acute distress - Respiratory Additional comments: Occasional rhonchi noted anterior chest. Remains on vent - Cardiovascular Cardiovascular exam: Present: +S1, +S2 - GI/Abdominal GI/Abdominal exam: Present: hypoactive bowel sounds, soft - Additional comments: Hen[place]y with everette urine - Extremities Exam Extremities exam: Present: normal capillary refill, normal inspection - Neurological Exam Additional comments: Unresponsive on vent. - Skin Skin exam: Present: dry, normal color, warm Palliative Quality Palliative Quality: Screen for Code Status: NA, Screen for Goals of Care: NA, Screen for Pain: NA, If Pain Regimen Started, Initiate Bowel Regimen: NA, Screen for Nausea/Vomitting: NA Code Status: 04/29/16 19:24 Resuscitation Status: Active [RES] Routine Comment: Resuscitation Status: Full Code 05/04/16 08:12 DNR [Resuscitation Status: Active] [RES] Routine Comment: Resuscitation Status: DNR-Comfort Care - Labs CBC & Chem 7: 05/04/16 04:05 05/04/16 04:05 Labs: Laboratory Results - last 24 hr 05/03/16 05/03/16 05/03/16 11:38 15:27 20:17 WBC RBC Hgb Hct MCV MCH MCHC RDW Plt Count MPV Immature Gran % Seg Neutrophils % Band Neutrophils % Lymphocytes % Monocytes % Eosinophils % Basophils % Neutrophils # Lymphocytes # Monocytes # Eosinophils # Basophils # Nucleated RBCs/100 WBC Toxic Granulation Platelet Estimate Sodium Potassium Chloride Carbon Dioxide BUN Creatinine Est GFR ( Amer) Est GFR (Non-Af Amer) BUN/Creatinine Ratio Glucose POC Glucose 164 H 152 H 114 H Calculated Osmolality Calcium Phosphorus Magnesium 05/03/16 05/04/16 05/04/16 23:59 04:05 04:05 WBC 15.4 H RBC 2.77 L Hgb 8.5 L Hct 28.2 L MCV 101.8 H MCH 30.7 MCHC 30.1 L RDW 15.3 H Plt Count 228 MPV 10.8 Immature Gran % 0.6 Seg Neutrophils % 30.0 Band Neutrophils % 56.0 H Lymphocytes % 10.0 Monocytes % 4.0 Eosinophils % 0.0 Basophils % 0.0 Neutrophils # 22.8 H Lymphocytes # 0.5 L Monocytes # 0.7 Eosinophils # 0.0 Basophils # 0.0 Nucleated RBCs/100 WBC 0.1 H Toxic Granulation Present A Platelet Estimate Normal Sodium 144 Potassium 4.2 Chloride 113 H Carbon Dioxide 22 BUN 28 H Creatinine 0.78 Est GFR ( Amer) > 60 Est GFR (Non-Af Amer) > 60 BUN/Creatinine Ratio 36 H Glucose 183 H POC Glucose 128 H Calculated Osmolality 308 H Calcium 8.8 Phosphorus Magnesium 05/04/16 05/04/16 05/04/16 04:05 04:13 07:28 WBC RBC Hgb Hct MCV MCH MCHC RDW Plt Count MPV Immature Gran % Seg Neutrophils % Band Neutrophils % Lymphocytes % Monocytes % Eosinophils % Basophils % Neutrophils # Lymphocytes # Monocytes # Eosinophils # Basophils # Nucleated RBCs/100 WBC Toxic Granulation Platelet Estimate Sodium Potassium Chloride Carbon Dioxide BUN Creatinine Est GFR ( Amer) Est GFR (Non-Af Amer) BUN/Creatinine Ratio Glucose POC Glucose 178 H 175 H Calculated Osmolality Calcium Phosphorus 3.3 Magnesium 1.5 L - ABG Interpretation ABG results: ABG ABG pH 7.56 pH Units (7.32-7.45) H 04/30/16 07:00 ABG pCO2 32 mmHg (35-45) L 04/30/16 07:00 ABG pO2 117 mmHg (85-104) H 04/30/16 07:00 ABG O2 Saturation 99 % (95-98) H 04/30/16 07:00 PT/INR, D-dimer PT 13.9 Seconds (9.4-12.1) H 04/30/16 02:25 Consult Discharge Plan - Plan Referrals: NO,PCP [Primary Care Provider] -
[2016-05-04] MEDS ORDERED: *HR* Morphine 2 MG/ML SYRINGE IVP PRN (11:18)
[2016-05-04] MEDS ORDERED: *HR* LORazepam 2 MG/ML VIAL IVP PRN ×2 (11:19→15:54)
--- NOTE | 2016-05-04 13:58 | Neurology Progress Note ---
Date of Encounter: 05/04/16 Time of Encounter: 13:56 Assessment and Plan (1) Anoxic encephalopathy Current Visit: Yes Status: Acute No changes , EEG revealed burst suppresion pattern typically associated with a poor prognosis Plan to withdraw care per primary and palliative team. (2) Cardiac arrest Current Visit: Yes Status: Acute (3) MR (mental retardation) Current Visit: Yes Status: Chronic (4) Respiratory failure Current Visit: No Status: Chronic Qualifiers: Chronicity: acute on chronic Respiratory failure complication: hypercapnia Qualified Code(s): J96.22 - Acute and chronic respiratory failure with hypercapnia Subjective Principal diagnosis: s/p Cardiac arrest Interval history: Patient has continued to remain unresponsive. Patient made a DNRCC with plans to withdraw care. Objective - Constitutional Vitals: Temp Pulse Resp BP Pulse Ox 98.4 F 86 15 114/68 92 L 05/04/16 11:47 05/04/16 13:00 05/04/16 13:00 05/04/16 13:00 05/04/16 13:00 Exam: Coma - Neurological Exam Sensorimotor examination: Present: flaccid paralysis Sensation intact: Present: other (Unable to assess given level of conciousness) Mental Status Examination: Present: coma Results - Laboratory Findings CBC and BMP: 05/04/16 04:05 05/04/16 04:05 Abnormal lab findings: Abnormal lab results WBC 15.4 K/mcL (4.3-11.1) H 05/04/16 04:05 RBC 2.77 M/mcL (3.82-4.97) L 05/04/16 04:05 Hgb 8.5 g/dL (11.5-15.4) L 05/04/16 04:05 Hct 28.2 % (35.3-44.9) L 05/04/16 04:05 MCV 101.8 fL (83.0-100.0) H 05/04/16 04:05 MCHC 30.1 g/dL (31.6-35.5) L 05/04/16 04:05 RDW 15.3 % (11.5-14.5) H 05/04/16 04:05 Band Neutrophils % 56.0 % (0-4) H 05/04/16 04:05 Neutrophils # 22.8 K/mcL (1.6-8.9) H 05/04/16 04:05 Lymphocytes # 0.5 K/mcL (0.6-4.6) L 05/04/16 04:05 Nucleated RBCs/100 WBC 0.1 /100 WBC (0) H 05/04/16 04:05 Toxic Granulation Present (Not Present) A 05/04/16 04:05 Polychromasia 1+ (Not Present) A 05/03/16 02:59 Hypochromasia Present (Not Present) A 05/03/16 02:59 Anisocytosis 1+ (Not Present) A 05/01/16 03:30 Microcytosis Present (Not Present) A 05/01/16 03:30 Macrocytosis Present (Not Present) A 05/01/16 03:30 PT 13.9 Seconds (9.4-12.1) H 04/30/16 02:25 ABG pH 7.56 pH Units (7.32-7.45) H 04/30/16 07:00 ABG pCO2 32 mmHg (35-45) L 04/30/16 07:00 ABG pO2 117 mmHg (85-104) H 04/30/16 07:00 ABG HCO3 28.7 mEQ/L (21-27) H 04/30/16 07:00 ABG Total CO2 29.7 mEq/L (20-26) H 04/30/16 07:00 ABG O2 Saturation 99 % (95-98) H 04/30/16 07:00 ABG Base Excess 6.7 mEq/L (-2.0 to 3.0) H 04/30/16 07:00 Chloride 113 mEq/L (98-109) H 05/04/16 04:05 BUN 28 mg/dL (7-20) H 05/04/16 04:05 BUN/Creatinine Ratio 36 (6-26) H 05/04/16 04:05 Glucose 183 mg/dL (70-99) H 05/04/16 04:05 POC Glucose 211 (58-89) H 05/04/16 11:18 Calculated Osmolality 308 (280-300) H 05/04/16 04:05 Lactic Acid 2.3 mmol/L (0.5-2.2) H 04/29/16 20:26 Magnesium 1.5 mg/dL (1.6-2.6) L 05/04/16 04:05 AST 285 Units/L (5-34) H 04/30/16 02:25 ALT 230 Units/L (0-55) H 04/30/16 02:25 Albumin 2.7 g/dL (3.5-5.0) L 04/30/16 02:25 Globulin 4.0 g/dL (2.4-3.5) H 04/30/16 02:25 Albumin/Globulin Ratio 0.7 (1.1-2.2) L 04/30/16 02:25 Consult Discharge Plan - Plan Referrals: NO,PCP [Primary Care Provider] - - Attending Attestation I examined this patient and my medical decision-making was reviewed with the Resident Physician. I agree with the documented findings, disposition and treatment plan as described except to the extent set forth below.
[2016-05-04] MEDS ORDERED: Acetaminophen 325 MG TABLET PO PRN (15:54)
[2016-05-04] MEDS ORDERED: Scopolamine Patch 1.5 MG PATCH.TD72 TD PRN (16:09)
--- NOTE | 2016-05-04 19:26 | Event Note ---
Date of Encounter: 05/04/16 Time of Encounter: 17:00 Patient was transferred from the ACU today. She is currently nonverbal. On exam she is in no acute distress, unresponsive, breathing regularly, not tachypneic. Heart is regular S1-S2 without murmurs lungs are with diminished breath sounds bilaterally. Plan: Patient was terminally extubated after she was intubated and resuscitated for cardiac arrest during which she suffered severe anoxic brain injury. At this point she is DNR CC. We will direct her care towards comfort only. Consult palliative care service and plan for inpatient hospice transfer.
[2016-05-05] MEDS: Ipratropium/Albuterol Neb 3 ML IH SCH ×5 (00:39→16:05)
[2016-05-05] MEDS: Sennosides/Docusate Sodium TABLET PO SCH ×2 (02:10→08:28)
[2016-05-05] MEDS: *HR* Morphine 2 MG/ML SYRINGE IVP PRN ×2 (02:35→09:19)
[2016-05-05 07:34] VITALS: BP 111/56
--- NOTE | 2016-05-05 08:49 | Palliative Progress Note ---
Date of Encounter: 05/05/16 Time of Encounter: 08:45 - Assessment and plan (1) Dyspnea Current Visit: Yes Status: Acute Assessment and plan: Continue IV Morphine - she does appear in distress this am - Has only had one dose of Morphine since moving from ICU. D/W primary nurse who will be giving her a dose soon. Oxygen has been increased - I think at this time, her opioids would be of more benefit to her comfort than continue to increase the oxygen. (2) Anxiety Current Visit: Yes Status: Acute Assessment and plan: Continue IV ATivan PRN. (3) Generalized pain Current Visit: Yes Status: Acute (4) Counseling regarding advanced care planning and goals of care Current Visit: Yes Status: Acute Assessment and plan: Based on her appearance this am, Patient does not appear stable to make a transition back to [facility]. If she survives, the goal of pt legal guardian and family would like to have pt transferred back to her senior care with hospice care. Palliative will not transition to inpt hospice here today, because if she stabilizes enough for discharge, she would then have to transition to another hospice agency that serves [place]. I would definitely recommend watching her another day here prior to arranging this. I will D/W guardian today. (5) Cardiac arrest Current Visit: Yes Status: Acute (6) Chronic respiratory failure with hypoxia and hypercapnia Current Visit: No Status: Acute - Time Spent With Patient Total time spent is greater than 50% in coordination of care (as documented) at patient's floor/unit and/or counseling patient: 25 - 35 minutes - Subjective Interval history: Patient remains unresponsive. Appears in mild resp distress - rate 40 and shallow. O2 at 60% via trach mask. Other vitals stable. - Constitutional Vitals: Abnormal lab results WBC 15.4 K/mcL (4.3-11.1) H 05/04/16 04:05 RBC 2.77 M/mcL (3.82-4.97) L 05/04/16 04:05 Hgb 8.5 g/dL (11.5-15.4) L 05/04/16 04:05 Hct 28.2 % (35.3-44.9) L 05/04/16 04:05 MCV 101.8 fL (83.0-100.0) H 05/04/16 04:05 MCHC 30.1 g/dL (31.6-35.5) L 05/04/16 04:05 RDW 15.3 % (11.5-14.5) H 05/04/16 04:05 Band Neutrophils % 56.0 % (0-4) H 05/04/16 04:05 Neutrophils # 22.8 K/mcL (1.6-8.9) H 05/04/16 04:05 Lymphocytes # 0.5 K/mcL (0.6-4.6) L 05/04/16 04:05 Nucleated RBCs/100 WBC 0.1 /100 WBC (0) H 05/04/16 04:05 Toxic Granulation Present (Not Present) A 05/04/16 04:05 Polychromasia 1+ (Not Present) A 05/03/16 02:59 Hypochromasia Present (Not Present) A 05/03/16 02:59 Anisocytosis 1+ (Not Present) A 05/01/16 03:30 Microcytosis Present (Not Present) A 05/01/16 03:30 Macrocytosis Present (Not Present) A 05/01/16 03:30 PT 13.9 Seconds (9.4-12.1) H 04/30/16 02:25 ABG pH 7.56 pH Units (7.32-7.45) H 04/30/16 07:00 ABG pCO2 32 mmHg (35-45) L 04/30/16 07:00 ABG pO2 117 mmHg (85-104) H 04/30/16 07:00 ABG HCO3 28.7 mEQ/L (21-27) H 04/30/16 07:00 ABG Total CO2 29.7 mEq/L (20-26) H 04/30/16 07:00 ABG O2 Saturation 99 % (95-98) H 04/30/16 07:00 ABG Base Excess 6.7 mEq/L (-2.0 to 3.0) H 04/30/16 07:00 Chloride 113 mEq/L (98-109) H 05/04/16 04:05 BUN 28 mg/dL (7-20) H 05/04/16 04:05 BUN/Creatinine Ratio 36 (6-26) H 05/04/16 04:05 Glucose 183 mg/dL (70-99) H 05/04/16 04:05 POC Glucose 211 (58-89) H 05/04/16 11:18 Calculated Osmolality 308 (280-300) H 05/04/16 04:05 Lactic Acid 2.3 mmol/L (0.5-2.2) H 04/29/16 20:26 Magnesium 1.5 mg/dL (1.6-2.6) L 05/04/16 04:05 AST 285 Units/L (5-34) H 04/30/16 02:25 ALT 230 Units/L (0-55) H 04/30/16 02:25 Albumin 2.7 g/dL (3.5-5.0) L 04/30/16 02:25 Globulin 4.0 g/dL (2.4-3.5) H 04/30/16 02:25 Albumin/Globulin Ratio 0.7 (1.1-2.2) L 04/30/16 02:25 General appearance: Present: mild distress - Respiratory Additional comments: Trach intact. Rhonchi to all lung gracia anteriorly. - Cardiovascular Cardiovascular exam: Present: irregular rhythm, tachycardia - GI/Abdominal GI/Abdominal exam: Present: normal bowel sounds, soft Additional comments: PEG intact and clamped - Additional comments: Urine dk yellow - Neurological Exam Additional comments: Unresponsive with eyes open. No response to verbal or tactile stimuli - Skin Skin exam: Present: dry, warm Palliative Quality Palliative Quality: Screen for Code Status: Yes (with guardian), Screen for Goals of Care: Yes, Screen for Pain: Yes, If Pain Regimen Started, Initiate Bowel Regimen: Yes, Screen for Nausea/Vomitting: NA Code Status: 04/29/16 19:24 Resuscitation Status: Active [RES] Routine Comment: Resuscitation Status: Full Code 05/04/16 08:12 DNR [Resuscitation Status: Active] [RES] Routine Comment: Resuscitation Status: DNR-Comfort Care - Labs CBC & Chem 7: 05/04/16 04:05 05/04/16 04:05 Labs: Laboratory Results - last 24 hr 05/04/16 11:18 POC Glucose 211 H - ABG Interpretation ABG results: ABG ABG pH 7.56 pH Units (7.32-7.45) H 04/30/16 07:00 ABG pCO2 32 mmHg (35-45) L 04/30/16 07:00 ABG pO2 117 mmHg (85-104) H 04/30/16 07:00 ABG O2 Saturation 99 % (95-98) H 04/30/16 07:00 PT/INR, D-dimer PT 13.9 Seconds (9.4-12.1) H 04/30/16 02:25 Consult Discharge Plan - Plan Referrals: NO,PCP [Primary Care Provider] -
[2016-05-05] MEDS ORDERED: Bisacodyl 10 MG RECTAL SUPPOSITORY RC SCH (09:00)
[2016-05-05] MEDS ORDERED: *HR* Morphine Soln 10 MG/5 ML UDC GTUBE PRN (13:11)
[2016-05-05] MEDS ORDERED: *HR* LORazepam 1 MG TABLET GTUBE PRN (13:11)
[2016-05-05] MEDS ORDERED: *HR* Morphine Soln 10 MG/5 ML UDC GTUBE SCH (13:15)
--- NOTE | 2016-05-05 17:35 | Discharge Summary ---
Date of Encounter: 05/05/16 Time of Encounter: 16:00 - Discharge Diagnosis (1) Anoxic encephalopathy Priority: Primary Status: Acute (2) Cardiac arrest Priority: Primary Status: Inactive (3) Chronic respiratory failure with hypoxia and hypercapnia Priority: Secondary Status: Acute (4) MR (mental retardation) Priority: Secondary Status: Acute (5) Dementia Priority: Secondary Status: Chronic Qualifiers: Dementia type: unspecified type Dementia behavioral disturbance: without behavioral disturbance Qualified Code(s): F03.90 - Unspecified dementia without behavioral disturbance (6) Malnutrition of moderate degree Priority: Secondary Status: Chronic (7) Pulmonary hypertension Priority: Secondary Status: Chronic (8) Restrictive lung disease due to kyphoscoliosis Priority: Secondary Status: Chronic (9) Pneumonia Priority: Secondary Status: Suspected Qualifiers: Pneumonia type: aspiration pneumonia Aspiration pneumonia type: due to vomit Laterality: unspecified laterality Lung location: unspecified part of lung Qualified Code(s): J69.0 - Pneumonitis due to inhalation of food and vomit - Discharge Medications Home Medications: Brimonidine Tartrate [Alphagan P] 1 drop RIGHT EYE TID 04/23/16 [History] Buspirone HCl [Buspar] 7.5 mg GTUBE BID 04/23/16 [History] Chlorhexidine Gluconate [Peridex] 15 ml MM BID 04/23/16 [History] Cholecalciferol (D-3) [Vitamin D] 1,000 unit GTUBE DAILY 04/23/16 [History] Docusate [Colace] 100 mg GTUBE DAILY 04/23/16 [History] Donepezil [Aricept] 10 mg GTUBE HS 04/23/16 [History] Enoxaparin [Lovenox] 40 mg SQ DAILY 04/23/16 [History] Famotidine [Heartburn Prevention] 20 mg GTUBE BID 04/23/16 [History] Furosemide [Lasix] 20 mg GTUBE DAILY 04/23/16 [History] Insulin LISPRO [HumaLOG] 2 - 6 units SQ Q6H 04/23/16 [History] Lactulose 20 gm GTUBE Q6H PRN 04/23/16 [History] Latanoprost [Xalatan] 1 drop BOTH EYES HS 04/23/16 [History] Levothyroxine [Synthroid] 25 mcg GTUBE 0630 04/23/16 [History] Memantine HCl 10 mg GTUBE BID 04/23/16 [History] Metformin [Glucophage] 500 mg GTUBE QPM 04/23/16 [History] Ondansetron [Zofran] 4 mg GTUBE Q6H PRN 04/23/16 [History] Quetiapine Fumarate [Seroquel] 100 mg GTUBE BID 04/23/16 [History] Sennosides [Senna] 8.6 mg GTUBE DAILY 04/23/16 [History] Haloperidol [Haldol] 0.5 mg GTUBE Q2H PRN 04/29/16 [History] LORazepam [Ativan] 1 mg GTUBE Q4H 04/29/16 [History] Multivitamin with Minerals [Apatate Forte] 15 ml GTUBE DAILY 04/29/16 [History] OxyCODONE Immed Rel [Roxicodone 5 MG] 5 mg GTUBE Q4H PRN 04/29/16 [History] Allergies/Adverse Reactions: Allergies No Known Allergies Allergy (Verified 04/23/16 21:37) Date of admission: 04/29/16 17:51 Primary care physician: PCP NO Consults: 04/29/16 19:43 Consult to Palliative Care [CONS] Routine Comment: Post-Arrest,Court guard.,qual of life,code status? Consulting Provider: Palliative Care Saima 04/29/16 19:46 Consult to Pulmonology [CONS] Routine Consulting Provider: [facility] [place] Reason for Consult: Post-Arrest, acute care Call Completed: Yes Discharging clinician: Corwin Hunter - Patient Status Disposition: Condition: Critical - Discharge Instructions Follow Up With: NO,PCP [Primary Care Provider] - Hospital course: Ms. Squires is a 71 year old female ,Patient already had been sick for some time and has been treated with sepsis as well as has chronic respiratory failure on tracheostomy, who had a cardiopulmonary arrest @ [facility] and received CPR - 33 minutes, did have a pulse ,she was on pressors. she has not shown any significant sign of improvement.Considering her overall condition, with prolonged arrest I suspect this patient has suffered significant anoxic hypoxic brain damage.Though she did have brainstem reflexes but apparently may have suffered significant hypoxic damage to her already WEAK brain, present history of MRDD as well as multiple other medical conditions and significant recent illness, may aLL be contributing to it as well.CT of the head did not show any acute bleed or stroke.Per neurology, He suspected patient has suffered anoxic damage and perhaps may not be able to return back to her usual baseline, even she is able to wake up some but may not be able to do usual daily activities or may not be quite independent.Plan discussed with family per palliative team , They decided no aggressive mangment , keep patient comfortable, First time i saw the patient patient was under care of paliative care team, patient was unresponsive,in no distress under control with comfort care medications , 2 hours latter reported to me patient , i went and reevaluated again , confirming - Time Spent with Patient Total time spent providing and/or coordinating discharge services: Less than 30 minutes - Constitutional Vitals: Temp Pulse Resp BP Pulse Ox 97.3 F L 66 32 111/56 88 L 05/05/16 07:30 05/05/16 07:30 05/05/16 11:38 05/05/16 07:30 05/05/16 11:38 - Other Additional findings: Patient was seen and examined @1:00PM. Patient was unresponsive, agony breathing , symptoms control by hospice team.
== END 2016-05-05 16:53 | disposition expired | DRG 207 ==
LOC: ICNU 17:51 → 2ANU 05-04 18:27
PROVIDERS: ADMIT Internal Medicine Pulmonary Disease; ATTEND Family Medicine